=== PATIENT | female | born 1955 | race Caucasian/White ===

== ENCOUNTER → 2016-05-16 | Outpatient (CLI) | payer OTHER ==
[~2016-05-16] MED LIST: CITA10TA4 PO; CITA20TA4 PO; CLIN300C2 PO; CPR500 PO; CYCL5TAB PO; ESCI1TAB10 PO; FLUC100T4 PO; IBUP1CAP9 PO; MELO15TA10 PO; METH500T PO; NAPR1TAB9 PO; NRV5 PO; OXYC-57 PO; OXYC1TAB3 PO; PRLSR20 PO; QUET1TAB34 PO; SRQ/50 PO; TRAZ100T29 PO
--- NOTE | 2016-05-16 15:57 | DIAGNOSTIC IMAGING REPORT ---
LEFT SHOULDER MIN 2 VIEWS ROUTINE CLINICAL HISTORY: Left shoulder pain status post trauma COMPARISON: None. DISCUSSION: There is a left subclavian dual-chamber central venous pacemaker. No fractures or dislocations of the left shoulder are visualized. There are no visible periarticular calcifications. IMPRESSION: No fractures or dislocations identified. Electronically signed by: Jose Enrique Wang M.D. 05/16/2016 3:56 PM Dictated Date/Time: 05/16/2016 3:55 PM
== END | disposition home or self-care (01) ==
LOC: C.RADPV 15:39
PROVIDERS: ATTEND Nurse Practitioner
DX: M25.512 Pain in left shoulder (principal)

== ENCOUNTER → 2016-05-30 | Outpatient (CLI) | payer OTHER ==
--- NOTE | 2016-05-30 09:15 | DIAGNOSTIC IMAGING REPORT ---
LEFT SHOULDER MIN 2 VIEWS CLINICAL HISTORY: LEFT SHOULDER PAIN pain COMPARISON: 05/16/2016 DISCUSSION: The bones and joint spaces appear intact. There is no evidence of fracture, dislocation or bony disease. There is no evidence for soft tissue swelling. IMPRESSION: Negative study. Electronically signed by: Kobi Dempsey M.D. 05/30/2016 9:14 AM Dictated Date/Time: 05/30/2016 9:13 AM
== END | disposition home or self-care (01) ==
LOC: C.RDSM 09:02
PROVIDERS: ATTEND Family Medicine
DX: M25.512 Pain in left shoulder (principal)

== ENCOUNTER 2016-06-13 11:43 | Day surgery (SDC) | payer OTHER ==
[2016-06-01 10:20] LABS: HEMATOCRIT 39.6 % (37-47); MEAN CELL VOLUME 87.2 fL (80-100); MEAN CORPUSCULAR HEMOGLOBIN 29.5 pg (25-34); MEAN CORPUSCULAR HGB CONC 33.8 g/dl (32-36); MEAN PLATELET VOLUME 10.7 fL (7.4-10.4); PLATELET COUNT 235 K/uL (130-400); RED BLOOD COUNT 4.54 M/uL (4.2-5.4)
[2016-06-01 10:31] LABS: INR 0.9 (0.9-1.1); PARTIAL THROMBOPLASTIN RATIO 0.9; PROTHROMBIN TIME (PATIENT) 9.7 SECONDS (9.0-12.0)
[2016-06-01 10:49] LABS: BLOOD UREA NITROGEN 20 mg/dl (7-18); BUN/CREATININE RATIO 23.1 (10-20); CALCIUM 8.6 mg/dl (8.5-10.1); CARBON DIOXIDE 25 mmol/L (21-32); CHLORIDE 108 mmol/L (98-107); CREATININE 0.88 mg/dl (0.60-1.20); GLUCOSE 90 mg/dl (70-99); POTASSIUM 4.1 mmol/L (3.5-5.1); SODIUM 141 mmol/L (136-145)
[2016-06-13] VITALS (7 sets, daily range): BP systolic 122–167; BP diastolic 71–110; PULSE 68–85; TEMP 36.4–36.9; O2SAT 93–99; Ht 158.8 cm; Wt 63.5 kg
[~2016-06-13] VITALS: Ht 158.8 cm; Wt 63.5 kg
[~2016-06-13 11:43] MED LIST changes: -CITA20TA4 PO; -CLIN300C2 PO; -CPR500 PO; -CYCL5TAB PO; -ESCI1TAB10 PO; -FLUC100T4 PO; -IBUP1CAP9 PO; -MELO15TA10 PO; -NAPR1TAB9 PO; -NRV5 PO; -OXYC-57 PO; -OXYC1TAB3 PO; -PRLSR20 PO; -QUET1TAB34 PO; -SRQ/50 PO
[2016-06-13] MEDS ORDERED: IBUP1CAP9 PO (12:41)
[2016-06-13] MEDS ORDERED: NAPR1TAB9 PO (12:41)
[2016-06-13] MEDS ORDERED: QUET1TAB34 PO (12:41)
--- NOTE | 2016-06-13 12:44 | Procedure Note ---
Pre-Mod Sedation Assessment General Date of Moderate Sedation: Jun 13, 2016. Vital Signs: Vital Signs Past 12 Hours Date Time Temp Pulse Resp B/P Pulse Ox O2 Delivery O2 Flow Rate FiO2 06/13/16 12:20 157/102 06/13/16 12:02 36.9 85 18 167/110 98 Review Cardiovascular: regular rate, rhythm Abdomen: normal bowel sounds Lungs: lungs clear Pre-Sedation Airway Assessment Oral Cavity: Dentures Smoking Status: Current Some Day Smoker Procedure Planning Contraindications-for Mod Sed: None Yes Notes The planned sedation has been discussed with the patient and consent obtained. I have identified the patient, determined the appropriateness of sedation and have assessed the patient immediately prior to the procedure. All medicine(s) and interventions are by my order.
--- NOTE | 2016-06-13 12:44 | History & Physical Bridge Note ---
H&P Re-Evaluation Bridge Note: I have examined the patient, reviewed the History & Physical and in the interval since the performance of the History & Physical I have noted the following changes of clinical significance: No changes noted. I reviewed the indications, procedure, risks and alternatives with her and her family and they understand and she agrees to proceed. Consent obtained.
[2016-06-13] MEDS: CLINDAMYCIN 600 MG/54 ML D5W IV SCH ×2 (12:49→13:48)
[2016-06-13] MEDS ORDERED: BACITRACIN OINT 0.9 GM PKT ONE (13:13)
[2016-06-13] MEDS ORDERED: LIDOCAINE HCL 1% 20 ML VIAL ONE (13:13)
[2016-06-13] MEDS ORDERED: BACITRACIN 50000 UNIT VIAL ONE (13:13)
[2016-06-13] MEDS ORDERED: FENTANYL CITRATE INJ 50 MCG/1 ML 2 ML VIAL ONE ×2 (13:14→13:49)
[2016-06-13] MEDS ORDERED: MIDAZOLAM HCL 5 MG/ML 1 ML VIAL ONE ×2 (13:14→13:49)
--- NOTE | 2016-06-13 14:19 | Procedure Note ---
Post-Mod Sedation Assessment General Date of Moderate Sedation Jun 13, 2016. Vital Signs: Vital Signs Past 12 Hours Date Time Temp Pulse Resp B/P Pulse Ox O2 Delivery O2 Flow Rate FiO2 06/13/16 14:05 82 16 128/97 97 Nasal Cannula 3 06/13/16 12:20 157/102 06/13/16 12:02 36.9 85 18 167/110 98 Review - Discharge Criteria Vital Signs Stable: Yes Alert/Oriented/Conversant: Yes Returned to Baseline Mental St: Yes Nausea Absent/Minimal: Yes Pain/Discomfort/Absent/Minimal: Yes Normal/Baseline Respirations: Yes Active Bleeding?: No
--- NOTE | 2016-06-13 14:21 | Cardiology Procedure Brief Nt ---
Preliminary Cardiology Note Procedure Date Jun 13, 2016. Pre-Procedure Diagnosis pacemaker NICOLETTE Post-Procedure Diagnosis same Procedure(s) Performed Dual chamber pacemaker replacement Feeder Associate Dr. Orozco Safety Security Officer(s) none Estimated Blood Loss 20 cc Preliminary Findings Good chronic lead measurements Recommendations Monitor briefly and discharge Specimens Old pacemaker, return to [facility] Anesthesia local with sedation Complication(s) None Disposition MTU
[2016-06-13] MEDS ORDERED: DiphenhydrAMINE HCL 50 MG/ML VIAL ONE (14:22)
[2016-06-13] MEDS ORDERED: KETOROLAC TROMETHAMINE 10 MG TAB PO PRN (14:30)
[2016-06-13] MEDS ORDERED: ACETAMINOPHEN 325 MG TAB PO PRN (14:30)
[2016-06-13] MEDS ORDERED: CLIN300C2 PO (15:17)
--- NOTE | 2016-06-13 15:19 | Discharge Instructions ---
Discharge Instructions Date of Service Jun 13, 2016. Admission Reason for Admission: Pacemaker battery depletion Discharge Discharge Diagnosis / Problem: pacemaker replacement Discharge Goals Goal(s): Improve disease control Activity Recommendations Activity Limitations: resume your previous activity . Instructions / Follow-Up Instructions / Follow-Up ACTIVITY RECOMMENDATIONS: * Do not raise affected arm over head for 2 weeks. SPECIAL CARE INSTRUCTIONS: * If bleeding occurs, apply direct pressure to area for 5 minutes. * Call your doctor if you have severe pain, fever, drainage or bleeding at site. * Keep dressing on and dry. * Keep any scheduled doctor's appointment. * Implant Card - hand held device with website information given. SKIN IRRITATION: * You may experience some redness and/or swelling in the area where radiation was administered. If any skin irritation occurs, please contact your family physician. FOLLOW UP VISIT: Dr. Orozco 06/14/2016 10:00 AM Current Hospital Diet Patient's current hospital diet: Discharge Diet Recommended Diet: AHA Diet (Heart Healthy) Pending Studies Studies pending at discharge: no Medical Emergencies . Who to Call and When: Medical Emergencies: If at any time you feel your situation is an emergency, please call 911 immediately. . Non-Emergent Contact Non-Emergency issues call your: Primary Care Provider . . "Provider Documentation" section prepared by Pancho Orozco. VTE Core Measure Inpt VTE Proph given/why not?: Treatment not indicated
--- NOTE | 2016-06-13 15:21 | OPERATIVE REPORT ---
DATE OF OPERATION: 06/13/2016 PREOPERATIVE DIAGNOSIS: Pacemaker elective replacement indicator. POSTOPERATIVE DIAGNOSIS: Same. PROCEDURE: Dual chamber pacemaker replacement. SURGEON: Pancho Orozco M.D. ANESTHESIA: Local with sedation. HISTORY OF PRESENT ILLNESS: This is a 61-year-old woman who has a history of sinus bradycardia, her care initially took place in the [facility]. She evidently had several episodes of syncope prompting pacemaker implantation on 03/19/2007. It is reported that she had a second pause on telemetry monitoring. She paces infrequently but does use the pacemaker. Her pacemaker has now reached NICOLETTE, the leads tested well through the device. She is brought to the laboratory for device replacement. OPERATION AND FINDINGS: After obtaining informed consent for the procedure, she was brought to the laboratory on the afternoon of 06/13/2016 being n.p.o. after midnight. She was identified in the laboratory, prepped and draped in standard sterile manner for a left-sided pacemaker replacement. The left prepectoral region was anesthetized with 1% lidocaine local anesthetic through the implant scar and a 5 cm incision was made through the scar and carried down to the pacemaker generator. The generator was dissected free of tissue and explanted. A bacitracin-soaked sponge (50,000 units in 50 mL normal saline solution) was placed in the pocket. The pacemaker was removed from the leads and confirmed to be a Guidant model 1296, serial #[id number]. This device will be returned to Induction Manager. Since this new device is an RF device, the leads were not evaluated until a new pacemaker was connected, the new pacemaker is a [employer] Accolade MRI EL DR model L331, serial #[id number]. The pacemaker was connected to the leads and found to be functioning normally through the wireless telemetry. The atrial lead is a Guidant model 4469, serial #[id number]. The pacing threshold was 0.6 volts at a pulse width of 0.4 milliseconds, current 0.8 milliamp and 5-volt lead impedance 518 ohms. P-waves were sensed at 7.3 millivolts. This is a very good threshold. The ventricular lead is a Guidant model 4470, serial #[id number]. This lead was evaluated in bipolar configuration through the device and the pacing threshold was 0.7 at a pulse width of 0.4 milliseconds, current was 1.5 milliamp and 5-volt lead impedance was 472 ohms. R-waves were sensed at 16.9 millivolts. These are excellent thresholds as well. The ICD pocket was enlarged in an inferior direction as this is a larger device than the previous, the device was placed in the pocket with the leads coiled beneath it and the incision was closed with a running double subcutaneous closure of 3-0 Vicryl followed by running subcuticular skin closure of 4-0 Vicryl. Bacitracin ointment was placed on incision and a pressure dressing applied. He tolerated the procedure well, there were no complications and estimated blood loss was 20 mL. The patient was transferred to the ambulatory unit for monitoring and subsequent discharge. Details of the old and new pacemaker and leads are noted above. The pacemaker was reprogrammed in the laboratory to final settings. This system is currently not approved for MRI based on the leads, however these leads should become approved for MRI in the near future and this is an MRI compatible pacer; therefore in the near future this will likely be an MRI compatible system. BRANDI
[2016-06-13] MEDS ORDERED: DiphenhydrAMINE HCL 50 MG/ML VIAL IV ONE (16:15)
[2016-10-02] MEDS ORDERED: NRV5 PO (12:36)
[2016-10-11] MEDS ORDERED: CPR500 PO (10:47)
[2016-10-11] MEDS ORDERED: FLUC100T4 PO (10:47)
[2016-11-08] MEDS ORDERED: CITA20TA4 PO (10:19)
[2016-11-08] MEDS ORDERED: PRLSR20 PO (10:19)
[2016-11-08] MEDS ORDERED: QUET1TAB34 PO (10:19)
[2016-11-08] MEDS ORDERED: OXYC-57 PO (10:19)
[2016-11-08] MEDS ORDERED: MELO15TA10 PO (10:19)
== END 2016-06-13 16:45 | disposition home or self-care (01) ==
LOC: C.ACU 11:43
PROVIDERS: ATTEND Internal Medicine Cardiovascular Disease
DX: R00.1 Bradycardia, unspecified (principal); M25.512 Pain in left shoulder; W01.198A Fall on same level from slipping, tripping and stumbling with subsequent striking against other object, initial encounter; R55 Syncope and collapse; K21.9 Gastro-esophageal reflux disease without esophagitis; F41.9 Anxiety disorder, unspecified; I10 Essential (primary) hypertension; F30.9 Manic episode, unspecified; E78.00 Pure hypercholesterolemia, unspecified; E78.5 Hyperlipidemia, unspecified; Z80.42 Family history of malignant neoplasm of prostate; Z87.891 Personal history of nicotine dependence; Z95.0 Presence of cardiac pacemaker

== ENCOUNTER → 2016-06-21 | Outpatient (CLI) | payer OTHER ==
[~2016-06-21] MED LIST changes: +CITA20TA4 PO; +CPR500 PO; +CYCL5TAB PO; +ESCI1TAB10 PO; +FLUC100T4 PO; +IBUP1CAP9 PO; +MELO15TA10 PO; -METH500T PO; +NAPR1TAB9 PO; +NRV5 PO; +OXYC-57 PO; +OXYC1TAB3 PO; +PRLSR20 PO; +QUET1TAB34 PO; +SRQ/50 PO; -TRAZ100T29 PO
--- NOTE | 2016-06-21 16:57 | MAMMOGRAPHY REPORT ---
BILATERAL DIGITAL SCREENING MAMMOGRAM TOMOSYNTHESIS WITH CAD: 06/21/2016 CLINICAL HISTORY: Routine screening. Patient has no complaints. TECHNIQUE: Breast tomosynthesis in addition to standard 2D mammography was performed. Current study was also evaluated with a Computer Aided Detection (CAD) system. COMPARISON: Comparison is made to exams dated: 06/13/2012 mammogram, 06/18/2014 mammogram, 06/21/2015 ma mmogram, and 06/25/2014 mammogram - [facility]. BREAST COMPOSITION: The tissue of both breasts is heterogeneously dense, which may obscure small ma sses. FINDINGS: No suspicious masses, calcifications, or areas of architectural distortion are noted in e ither breast. There has been no significant interval change compared to prior exams. A pacemaker ob scures portions of the left superior breast on the MLO view. IMPRESSION: ACR BI-RADS CATEGORY 2: BENIGN There is no mammographic evidence of malignancy. A 1 year screening mammogram is recommended. The p atient will receive written notification of the results. Approximately 10% of breast cancers are not detected with mammography. A negative mammographic repor t should not delay biopsy if a clinically suggestive mass is present. Bhavna Jones M.D. ah/:06/21/2016 16:03:23 Rib Builder: Grace BURRIS(R)(M), [facility] letter sent: Normal 1/2 BI-RADS Code: ACR BI-RADS Category 2: Benign
== END | disposition home or self-care (01) ==
LOC: C.MAMM 11:13
PROVIDERS: ATTEND Family Medicine
DX: Z12.31 Encounter for screening mammogram for malignant neoplasm of breast (principal)

== ENCOUNTER → 2016-09-10 | Outpatient (CLI) | payer OTHER ==
--- NOTE | 2016-09-10 14:48 | DIAGNOSTIC IMAGING REPORT ---
KUB CLINICAL HISTORY: Nephrolithiasis. FINDINGS: An AP supine abdominal radiograph is compared to study dated 03/08/2016 and correlated with abdominal CT dated 08/31/2015. There is a nonobstructed abdominal bowel gas pattern noting mild to moderate colonic fecal retention. A 3 mm nonobstructing calculus projects over the lower pole of the right kidney. No additional calcifications are seen projecting over either kidney or along the course of the ureters. Pelvic phleboliths are similar to previous. The skeletal structures are osteopenic. The bony structures appear intact. IMPRESSION: 1. A nonobstructing right renal calculus is identified. 2. No additional calcifications are seen projecting over the right kidney or along the course of the ureters. Electronically signed by: Praneeth Wren M.D. 09/10/2016 2:47 PM Dictated Date/Time: 09/10/2016 2:45 PM
== END | disposition home or self-care (01) ==
LOC: C.RAD 14:17
PROVIDERS: ATTEND Nurse Practitioner Family
DX: N20.0 Calculus of kidney (principal)

== ENCOUNTER → 2016-09-11 | Outpatient (CLI) | payer OTHER | END | disposition home or self-care (01) | LOC: C.PATHSPEC 17:11 | PROVIDERS: ATTEND Nurse Practitioner Adult Health | DX: M54.5 Low back pain (principal); N94.9 Unspecified condition associated with female genital organs and menstrual cycle; R31.29 Other microscopic hematuria ==

== ENCOUNTER → 2016-09-25 | Outpatient (CLI) | payer OTHER ==
[~2016-09-25] MED LIST changes: +OPTIRAY 320 IV PRN
--- NOTE | 2016-09-25 11:51 | DIAGNOSTIC IMAGING REPORT ---
ADDENDUM Addendum: There is an 11 mm nonobstructing distal left ureteral calculus. Electronically signed by: Jose Enrique Wang M.D. 09/29/2016 5:53 PM Dictated Date/Time: 09/29/2016 5:[address] ABD/PELVIS COMBO CLINICAL HISTORY: M54.5 Low back painN94.9 Vaginal phbvopujmvX80.29 Microhematuria COMPARISON STUDY: 08/31/2015 TECHNIQUE: Unenhanced images were obtained through the abdomen and pelvis. The patient was then injected with 50 cc Optiray 320. After 5 minute delay, the patient is rescanned in a dynamic helical fashion during intravenous administration of additional 69 cc of Optiray 320 CT DOSE: 606.01 mGy.cm FINDINGS: Lower chest: There are mild basilar atelectatic changes present. There is a small hiatal hernia Liver: The contrast-enhanced liver is normal in size, contour, and attenuation. There is no intrahepatic biliary ductal dilatation. The hepatic veins and portal veins are patent. Gallbladder: Surgically absent Spleen: Normal in size and attenuation. Pancreas: Unremarkable. Adrenal glands: Unremarkable. Kidneys: There is a 5 mm lower pole right renal calculus. There is a 2.5 mm mid pole right renal calculus. There is a 2.5 mm mid pole left renal calculus. There are 2 subcentimeter upper pole right renal hypodensities. Both of these exceed water attenuation and are therefore indeterminate. Due to the very small size it is difficult to determine whether these lesions enhance. It should be noted that these lesions appear stable to smaller than on the prior July 2010 study, strongly favoring a benign etiology. No collecting system or ureteral lesions are visualized. Bowel: There are no transition zones indicate bowel obstruction. There is no acute diverticulitis. There is no acute appendicitis. Peritoneum: There is no intraperitoneal free air or abdominal ascites. Vasculature: The abdominal aorta is normal in course and caliber. Adenopathy: None. Pelvic viscera: The uterus appears surgically absent Skeletal structures: No destructive osseous lesions are seen. IMPRESSION: 1. Bilateral nephrolithiasis 2. Subcentimeter right renal hypodensities likely benign 3. No uroepithelial masses identified 4. No evidence of bowel obstruction. No evidence of free air. No acute inflammatory changes. Electronically signed by: Jose Enrique Wang M.D. 09/25/2016 11:49 AM Dictated Date/Time: 09/25/2016 11:41 AM
== END | disposition home or self-care (01) ==
LOC: C.CTS 10:58
PROVIDERS: ATTEND Nurse Practitioner Adult Health
DX: R31.29 Other microscopic hematuria (principal); N94.9 Unspecified condition associated with female genital organs and menstrual cycle; M54.5 Low back pain; N20.0 Calculus of kidney; N28.9 Disorder of kidney and ureter, unspecified

== ENCOUNTER 2016-09-29 16:07 | Observation (INO) | payer OTHER ==
[~2016-09-29] VITALS: Ht 160 cm; Wt 61.9 kg
[~2016-09-29 16:07] MED LIST changes: -CITA20TA4 PO; -CPR500 PO; -CYCL5TAB PO; -ESCI1TAB10 PO; -FLUC100T4 PO; -MELO15TA10 PO; -NRV5 PO; -OPTIRAY 320 IV PRN; -OXYC-57 PO; -OXYC1TAB3 PO; -PRLSR20 PO; -SRQ/50 PO
[2016-09-29] MEDS ORDERED: CYCL5TAB PO (16:36)
[2016-09-29] MEDS ORDERED: ESCI1TAB10 PO (16:36)
[2016-09-29] MEDS ORDERED: SRQ/50 PO (16:36)
[2016-09-29] MEDS ORDERED: OXYC1TAB3 PO (16:36)
[2016-09-29] MEDS ORDERED: OXYCODONE HCL IR 5 MG TAB (IMMEDIATE RELEASE) PO STA (17:07)
--- NOTE | 2016-09-29 17:11 | EMERGENCY ROOM VISIT NOTE ---
ED Visit Note First contact with patient: 17:08 I did evaluate and examine this patient myself. I did guide management for the patient. I agree with the APC's assessment as discussed. Please see the APC's dictation for further details. The patient is presenting with chronic pain to her lower back without any signs of spinal cord injury or cauda equina syndrome. She is afebrile. She is treated by pain management in [place] and ran out of her medication recently. X-ray was performed and revealed a nonobstructing kidney stone. The patient was treated and advised to follow up with her doctor.
--- NOTE | 2016-09-29 17:13 | EMERGENCY ROOM VISIT NOTE ---
ED Visit Note First contact with patient: 16:38 CHIEF COMPLAINT: Low back pain HISTORY OF PRESENT ILLNESS: This 61-year-old female patient presents to the emergency department ambulatory complaining of pain in the low back which began 1 year ago. The pain was gradual in onset, is now constant and worse with movement. The patient notes the pain as severe and a 10/10. The patient has taken nothing for relief of the pain. The patient denies any bowel or bladder difficulties. There has been no leg numbness or weakness, and no change in sensation. She denies any radicular pain. No nausea or vomiting or abdominal pain. No chest pain or shortness of breath. The patient has had prior back injuries. The patient has seen orthopedics in pain management for her back pain. She has been diagnosed with L4-L5 degenerative changes. She had injections most recently 3 weeks ago. She states that she is usually on oxycodone 5 mg twice daily, Flexeril and meloxicam. The patient states that she has been out of her pain medication for the last 1 week. She states she may have unknowingly twisted and has noticed increasing pain. She was diagnosed with bilateral nephrolithiasis without ureterolithiasis by urology who she sees routinely. REVIEW OF SYSTEMS: No dysuria or increased urinary frequency. A 6 system review of systems was completed and pertinent positives and negatives are in the HPI. ALLERGIES: See nursing notes MEDICATIONS: See nursing notes PMH: Chronic back pain, kidney stones SOCIAL HISTORY: The patient is a smoker PHYSICAL EXAM: VITALS: Vitals are noted on the nurse's note and reviewed by myself. No abnormalities noted. GENERAL: This is a 61-year-old female, in no acute distress, nondiaphoretic, well-developed well-nourished. SKIN: The skin was without rashes, erythema, edema, or bruising. Capillary refill less than 2 seconds. NECK: Supple without nuchal rigidity. No cervical spine tenderness. No paraspinous muscle tenderness. HEART: Regular rate and rhythm without murmurs gallops or rubs. LUNGS: Clear to auscultation bilaterally without wheezes, rales or rhonchi. ABDOMEN: Positive bowel sounds x 4. Normal tympanic percussion. Soft, nontender, without masses or organomegaly. Jensen sign negative. MUSCULOSKELETAL: No muscle atrophy, erythema, or edema noted of the back. There is moderate tenderness over the lumbar spinous processes. There is no tenderness over the paraspinous muscles. There is no tenderness over the thoracic spine more paraspinous muscles. There are no muscle spasms present. The patient is slow to move around with maximum tenderness with extension.. Negative straight leg raise test. NEURO: Patient was alert and oriented to person place and time. Normal sensation to light and sharp touch. Deep tendon reflexes 2+ in the lower extremities. Dorsalis pedis pulse 2+ bilaterally. Strength is 5/5 in the lower extremities bilaterally. EMERGENCY DEPARTMENT COURSE: The patient was seen and examined. The patient reports a history of chronic low back pain for which she sees pain management. She initially stated she had no change in her symptoms. She does not have any signs or symptoms to suggest cauda equina or cord compression. She does not have any radicular pain, paresthesias, weakness. She has not had any fevers. She has not had any abdominal pain. The patient states that she has been out of her oxycodone for at least a week. When I reviewed the prescription drug monitoring website, the patient received oxycodone 5 mg tablets #90 on 2016. She should still have enough medication through tomorrow. She had advised me that she was taking the medication exactly as prescribed. She still was adamant that she is taking it appropriately when I reviewed the above finding. The patient also states that she missed her appointment with pain management a few days ago. It would have been the appointment that her medication was refilled. I do not feel comfortable prescribing this patient narcotic pain medication given that she is already prescribed chronic medication for pain management. She should still have her medication until Sunday. It is concerning that she may not be taking her medications appropriately. I agreed to give her one dose of pain medication but no prescriptions. She was given oxycodone 5mg. She requested an x ray and stated she has not had one for some time. An x-ray of the lumbar spine was obtained as below. There does appear to be an 11 mm left distal ureteral stone. Upon review by the radiologist, it appeared to be there on the CT scan from a few days ago and that report was amended. The patient's pain may be related to the 11 mm left-sided distal ureteral stone. It was not noted on CAT scan from a few days ago but was present. At this time, an IV was established. The patient was given IV Dilaudid. She had already been given 5 mg oral oxycodone. She did not have any significant improvement in her pain. She could not provide a urine sample. She did not have a leukocytosis, anemia or renal insufficiency. [facility] and [facility] will evaluate the patient. The patient was also seen and examined by who agrees with the assessment and treatment plan. DIFFERENTIAL DIAGNOSIS: Lumbar strain, degenerative disc disease, spondylolisthesis, herniated disc, spinal stenosis, osteoporosis, fracture, cauda equina syndrome, neoplasm, infection, inflammatory arthritis, among others. 09/29/16 18:45 Red Blood Count 4.57, Mean Corpuscular Volume 88.2, Mean Corpuscular Hemoglobin 28.4, Mean Corpuscular Hemoglobin Concent 32.3, Mean Platelet Volume 10.1, Neutrophils (%) (Auto) 65.1, Lymphocytes (%) (Auto) 26.7, Monocytes (%) (Auto) 5.7, Eosinophils (%) (Auto) 1.7, Basophils (%) (Auto) 0.6, Neutrophils # (Auto) 3.55, Lymphocytes # (Auto) 1.45, Monocytes # (Auto) 0.31, Eosinophils # (Auto) 0.09, Basophils # (Auto) 0.03 09/29/16 18:45 Test 09/29/16 18:45 White Blood Count 5.44 K/uL (4.8-10.8) Red Blood Count 4.57 M/uL (4.2-5.4) Hemoglobin 13.0 g/dL (12.0-16.0) Hematocrit 40.3 % (37-47) Mean Corpuscular Volume 88.2 fL (80-100) Mean Corpuscular Hemoglobin 28.4 pg (25-34) Mean Corpuscular Hemoglobin Concent 32.3 g/dl (32-36) Platelet Count 241 K/uL (130-400) Mean Platelet Volume 10.1 fL (7.4-10.4) Neutrophils (%) (Auto) 65.1 % Lymphocytes (%) (Auto) 26.7 % Monocytes (%) (Auto) 5.7 % Eosinophils (%) (Auto) 1.7 % Basophils (%) (Auto) 0.6 % Neutrophils # (Auto) 3.55 K/uL (1.4-6.5) Lymphocytes # (Auto) 1.45 K/uL (1.2-3.4) Monocytes # (Auto) 0.31 K/uL (0.11-0.59) Eosinophils # (Auto) 0.09 K/uL (0-0.5) Basophils # (Auto) 0.03 K/uL (0-0.2) RDW Standard Deviation 43.4 fL (36.4-46.3) RDW Coefficient of Variation 13.5 % (11.5-14.5) Immature Granulocyte % (Auto) 0.2 % Immature Granulocyte # (Auto) 0.01 K/uL (0.00-0.02) Anion Gap 6.0 mmol/L (3-11) Est Creatinine Clear Calc Drug Dose 62.5 ml/min Estimated GFR () 86.9 Estimated GFR (Non- 75.0 BUN/Creatinine Ratio 18.9 (10-20) Calcium Level 9.5 mg/dl (8.5-10.1) Total Bilirubin 0.3 mg/dl (0.2-1) Aspartate Amino Transf (AST/SGOT) 18 U/L (15-37) Alanine Aminotransferase (ALT/SGPT) 23 U/L (12-78) Alkaline Phosphatase 119 U/L (45-117) Total Protein 7.5 gm/dl (6.4-8.2) Albumin 4.2 gm/dl (3.4-5.0) Globulin 3.3 gm/dl (2.5-4.0) Albumin/Globulin Ratio 1.3 (0.9-2) [~ rep ct add3]] L-SPINE MIN 4 VIEWS ROUTINE CLINICAL HISTORY: Low back pain. Nausea. COMPARISON STUDY: 09/23/2015, CT scan dated 09/25/2016 FINDINGS: No acute fractures are visualized. There are surgical clips within the right upper quadrant consistent with a prior cholecystectomy. There are multiple nonspecific pelvic basin calcifications. There are few faint opacities projected over each renal shadow. The findings are consistent with bilateral nephrolithiasis. There are no acute fractures or subluxations within the lumbar spine. There are mild multilevel degenerative changes. There are multiple nonspecific pelvic basin calcifications. An 11 mm left pelvic basin calcification was not present in February 2016. This is felt to represent a nonobstructing distal left ureteral calculus.. IMPRESSION: 1. Minor degenerative change. No fractures or subluxations identified 2. Multiple pelvic basin calcifications including an 11 mm left pelvic basin calcification which was not present in February 2016. Upon review of the prior September 25, 2016 CT scan, it is felt that this calcification represents a nonobstructing distal left ureteral calculus. An addendum to that CT report will be issued. Problem List Medical Problems: (1) Anxiety and depression Status: Chronic (2) Cardiac pacemaker Status: Chronic (3) Gross hematuria Status: Resolved (4) Low back pain Status: Resolved (5) UTI (urinary tract infection) Status: Resolved Surgical Problems: (1) History of cholecystectomy Status: Chronic (2) Tubal ligation status Status: Chronic Current/Historical Medications Scheduled Escitalopram Oxalate (Lexapro), 20 MG PO DAILY Quetiapine Fumarate (Seroquel), 1 TAB PO HS Scheduled PRN Cyclobenzaprine Hcl (Flexeril), 5 MG PO Q8 PRN for Pain Ibuprofen (Ibuprofen), 600 MG PO Q8 PRN for Pain Naproxen (Aleve), 440 MG PO Q8 PRN for Pain Oxycodone Ir (Roxicodone Ir), 5 MG PO Q4H PRN for Severe Pain Allergies Coded Allergies: Morphine (Unverified Allergy, Severe, SHORTNESS OF BREATH, 09/29/16) Sulfa Antibiotics (Verified Allergy, Intermediate, ITCHY, 09/29/16) Sulfamethoxazole w/Trimethoprim (Verified Allergy, Intermediate, Itching, 09/29/16) Doxycycline (Verified Allergy, Mild, RED WELTS, 09/29/16) Codeine (Verified Allergy, Unknown, 09/29/16) Penicillins (Verified Allergy, Unknown, 09/29/16) Diphenhydramine (Unverified Adverse Reaction, Severe, UNKNOWN, 09/29/16) CANT TAKE HIGH DOSAGE. Chlorpromazine (Verified Adverse Reaction, Unknown, unknown, 09/29/16) Hydrocodone (Verified Adverse Reaction, Unknown, Vomiting, 09/29/16) Vital Signs Date Time Temp Pulse Resp B/P (MAP) Pulse Ox O2 Delivery O2 Flow Rate FiO2 09/29/16 18:52 73 18 161/99 98 Room Air 09/29/16 16:21 36.8 96 20 142/103 94 Room Air Laboratory Results 09/29/16 18:45 Red Blood Count 4.57, Mean Corpuscular Volume 88.2, Mean Corpuscular Hemoglobin 28.4, Mean Corpuscular Hemoglobin Concent 32.3, Mean Platelet Volume 10.1, Neutrophils (%) (Auto) 65.1, Lymphocytes (%) (Auto) 26.7, Monocytes (%) (Auto) 5.7, Eosinophils (%) (Auto) 1.7, Basophils (%) (Auto) 0.6, Neutrophils # (Auto) 3.55, Lymphocytes # (Auto) 1.45, Monocytes # (Auto) 0.31, Eosinophils # (Auto) 0.09, Basophils # (Auto) 0.03 09/29/16 18:45 Test 09/29/16 18:45 White Blood Count 5.44 K/uL (4.8-10.8) Red Blood Count 4.57 M/uL (4.2-5.4) Hemoglobin 13.0 g/dL (12.0-16.0) Hematocrit 40.3 % (37-47) Mean Corpuscular Volume 88.2 fL (80-100) Mean Corpuscular Hemoglobin 28.4 pg (25-34) Mean Corpuscular Hemoglobin Concent 32.3 g/dl (32-36) Platelet Count 241 K/uL (130-400) Mean Platelet Volume 10.1 fL (7.4-10.4) Neutrophils (%) (Auto) 65.1 % Lymphocytes (%) (Auto) 26.7 % Monocytes (%) (Auto) 5.7 % Eosinophils (%) (Auto) 1.7 % Basophils (%) (Auto) 0.6 % Neutrophils # (Auto) 3.55 K/uL (1.4-6.5) Lymphocytes # (Auto) 1.45 K/uL (1.2-3.4) Monocytes # (Auto) 0.31 K/uL (0.11-0.59) Eosinophils # (Auto) 0.09 K/uL (0-0.5) Basophils # (Auto) 0.03 K/uL (0-0.2) RDW Standard Deviation 43.4 fL (36.4-46.3) RDW Coefficient of Variation 13.5 % (11.5-14.5) Immature Granulocyte % (Auto) 0.2 % Immature Granulocyte # (Auto) 0.01 K/uL (0.00-0.02) Anion Gap 6.0 mmol/L (3-11) Est Creatinine Clear Calc Drug Dose 62.5 ml/min Estimated GFR () 86.9 Estimated GFR (Non- 75.0 BUN/Creatinine Ratio 18.9 (10-20) Calcium Level 9.5 mg/dl (8.5-10.1) Total Bilirubin 0.3 mg/dl (0.2-1) Aspartate Amino Transf (AST/SGOT) 18 U/L (15-37) Alanine Aminotransferase (ALT/SGPT) 23 U/L (12-78) Alkaline Phosphatase 119 U/L (45-117) Total Protein 7.5 gm/dl (6.4-8.2) Albumin 4.2 gm/dl (3.4-5.0) Globulin 3.3 gm/dl (2.5-4.0) Albumin/Globulin Ratio 1.3 (0.9-2) Medications Administered Medications (Trade) Dose Ordered Sig/Margaret Route Start Time Stop Time Status Last Admin Dose Admin Oxycodone HCl (Roxicodone Immediate Rel Tab) 5 mg NOW STAT PO 09/29/16 17:07 09/29/16 17:08 DC 09/29/16 17:22 5 MG Sodium Chloride 1,000 ml @ 999 mls/hr Q1H1M STAT IV 09/29/16 18:06 09/29/16 19:06 DC 09/29/16 19:00 999 MLS/HR Ondansetron HCl (Zofran Inj) 4 mg NOW STAT IV 09/29/16 18:06 09/29/16 18:08 DC 09/29/16 18:59 4 MG Hydromorphone HCl (Dilaudid Inj) 0.5 mg NOW STAT IV 09/29/16 18:45 09/29/16 18:46 DC 09/29/16 18:59 0.5 MG Lidocaine HCl (Viscous Lidocaine 2% Soln) 20 ml STK-MED ONCE .ROUTE 09/29/16 19:56 09/29/16 19:57 DC 09/29/16 19:58 20 ML Al Hydroxide/Mg Hydroxide (Maalox Susp) 30 ml STK-MED ONCE .ROUTE 09/29/16 19:56 09/29/16 19:57 DC 09/29/16 19:58 30 ML Departure Information Dispostion Admitted as an inpatient Referrals Mahi Hodges C.R.N.P (PCP) Patient Instructions Formerly [facility], [facility]
--- NOTE | 2016-09-29 17:53 | DIAGNOSTIC IMAGING REPORT ---
L-SPINE MIN 4 VIEWS ROUTINE CLINICAL HISTORY: Low back pain. Nausea. COMPARISON STUDY: 09/23/2015, CT scan dated 09/25/2016 FINDINGS: No acute fractures are visualized. There are surgical clips within the right upper quadrant consistent with a prior cholecystectomy. There are multiple nonspecific pelvic basin calcifications. There are few faint opacities projected over each renal shadow. The findings are consistent with bilateral nephrolithiasis. There are no acute fractures or subluxations within the lumbar spine. There are mild multilevel degenerative changes. There are multiple nonspecific pelvic basin calcifications. An 11 mm left pelvic basin calcification was not present in February 2016. This is felt to represent a nonobstructing distal left ureteral calculus.. IMPRESSION: 1. Minor degenerative change. No fractures or subluxations identified 2. Multiple pelvic basin calcifications including an 11 mm left pelvic basin calcification which was not present in February 2016. Upon review of the prior September 25, 2016 CT scan, it is felt that this calcification represents a nonobstructing distal left ureteral calculus. An addendum to that CT report will be issued. Electronically signed by: Jose Enrique Wang M.D. 09/29/2016 5:52 PM Dictated Date/Time: 09/29/2016 5:45 PM
[2016-09-29] MEDS ORDERED: SODIUM CHLORIDE 0.9% 1000ML 1,000 ML IV STA (18:06)
[2016-09-29] MEDS ORDERED: ONDANSETRON INJ 2 MG/ML 2 ML VIAL IV STA (18:06)
[2016-09-29] MEDS ORDERED: HYDROmorphone INJ 0.5 MG/0.5 ML SYR IV STA (18:45)
[2016-09-29 19:18] LABS: BUN/CREATININE RATIO 18.9 (10-20); CALCIUM 9.5 mg/dl (8.5-10.1); CREATININE 0.85 mg/dl (0.60-1.20); POTASSIUM 3.6 mmol/L (3.5-5.1)
[2016-09-29 19:21] LABS: ALB/GLOB RATIO 1.3 (0.9-2)
[2016-09-29] MEDS ORDERED: GI COCKTAIL PO STA (19:22)
[2016-09-29 19:24] LABS: BASO % 0.6 %; BASO ABS # 0.03 K/uL (0-0.2); COMPLETE YES; EOS % 1.7 %; HEMATOCRIT 40.3 % (37-47); IG% 0.2 %; LYMPH % 26.7 %; LYMPH ABS # 1.45 K/uL (1.2-3.4); MEAN CELL VOLUME 88.2 fL (80-100); MEAN CORPUSCULAR HEMOGLOBIN 28.4 pg (25-34); MEAN CORPUSCULAR HGB CONC 32.3 g/dl (32-36); MEAN PLATELET VOLUME 10.1 fL (7.4-10.4); MONO % 5.7 %; NEUT % 65.1 %; PLATELET COUNT 241 K/uL (130-400); RED BLOOD COUNT 4.57 M/uL (4.2-5.4); WHITE BLOOD COUNT 5.44 K/uL (4.8-10.8)
[2016-09-29] MEDS ORDERED: ALUMINUM/MAGNESIUM SUSP 30 ML UDC ONE (19:56)
[2016-09-29] MEDS ORDERED: LIDOCAINE HCL 2% VISC SOLN 20 ML UDC ONE (19:56)
[2016-09-29] MEDS ORDERED: IV FLUIDS COMPLETED PRN (21:15)
[2016-09-29] MEDS ORDERED: CYCLOBENZAPRINE HCL 5 MG TAB PO PRN (22:15)
[2016-09-29 22:18] VITALS: O2SAT 96; Ht 160 cm; Wt 61.9 kg
[2016-09-29 22:20] VITALS: BP 164/96; PULSE 62; TEMP 36.6; O2SAT 96
[2016-09-29] MEDS: D5W AND 1/2NSS 1,000 ML IV SCH (22:59)
[2016-09-29] MEDS ORDERED: PANTOprazole SOD 40 MG TAB PO ONE (23:00)
[2016-09-29] MEDS: ONDANSETRON INJ 2 MG/ML 2 ML VIAL IV PRN (23:48)
--- NOTE | 2016-09-30 00:33 | History and Physical ---
History & Physical Date & Time of Service: Sep 30, 2016 at 00:24 Chief Complaint: Renal Colic On Left Side Primary Care Physician: Mahi Hodges C.R.N.P History of Present Illness Source: patient The patient is a 61-year-old who has a history of nephrolithiasis with hydronephrosis. She complains of 1010 severe back pain. She has recently been seen by orthopedics and had been receiving injections. She has a known history of kidney stones and workup in the emergency room was consistent with nephrolithiasis causing her present back pain. She'll be admitted for treatment of intractable back pain secondary to nephrolithiasis. She denies any fevers chills nausea or vomiting. She is complaining of severe reflux pain. Past Medical/Surgical History Medical Problems: (1) Anxiety and depression Status: Chronic (2) Cardiac pacemaker Status: Chronic (3) Gross hematuria Status: Resolved (4) Low back pain Status: Resolved (5) UTI (urinary tract infection) Status: Resolved Surgical Problems: (1) History of cholecystectomy Status: Chronic (2) Tubal ligation status Status: Chronic Family History Cancer Gallbladder disease Kidney disease Kidney stones Social History Smoking Status: Current Every Day Smoker Drug Use: none Marital Status: single Housing status: lives with family Occupational Status: disabled Multi-Drug Resistant Organisms History of MDRO: No Allergies Coded Allergies: Morphine (Unverified Allergy, Severe, SHORTNESS OF BREATH, 09/29/16) Sulfa Antibiotics (Verified Allergy, Intermediate, ITCHY, 09/29/16) Sulfamethoxazole w/Trimethoprim (Verified Allergy, Intermediate, Itching, 09/29/16) Doxycycline (Verified Allergy, Mild, RED WELTS, 09/29/16) Codeine (Verified Allergy, Unknown, 09/29/16) Penicillins (Verified Allergy, Unknown, 09/29/16) Diphenhydramine (Unverified Adverse Reaction, Severe, UNKNOWN, 09/29/16) CANT TAKE HIGH DOSAGE. Chlorpromazine (Verified Adverse Reaction, Unknown, unknown, 09/29/16) Hydrocodone (Verified Adverse Reaction, Unknown, Vomiting, 09/29/16) Home Medications Scheduled Escitalopram Oxalate (Lexapro), 20 MG PO DAILY Quetiapine Fumarate (Seroquel), 1 TAB PO HS Scheduled PRN Cyclobenzaprine Hcl (Flexeril), 5 MG PO Q8 PRN for Pain Ibuprofen (Ibuprofen), 600 MG PO Q8 PRN for Pain Naproxen (Aleve), 440 MG PO Q8 PRN for Pain Oxycodone Ir (Roxicodone Ir), 5 MG PO Q4H PRN for Severe Pain Physical Exam Vital Signs Date Time Temp Pulse Resp B/P (MAP) Pulse Ox O2 Delivery O2 Flow Rate FiO2 09/29/16 22:20 36.6 62 16 164/96 (118) 96 Room Air 09/29/16 22:18 96 Room Air 09/29/16 21:59 73 18 151/95 95 09/29/16 21:00 73 18 151/95 95 Room Air 09/29/16 18:52 73 18 161/99 98 Room Air 09/29/16 16:21 36.8 96 20 142/103 94 Room Air General Appearance: WD/WN, no apparent distress Eyes: normal inspection ENT: hearing grossly normal Neck: supple, trachea midline Respiratory/Chest: lungs clear Cardiovascular: regular rate, rhythm Abdomen/GI: normal bowel sounds, non tender Back: + left CVA tenderness Extremities/Musculoskelatal: normal inspection Neurologic/Psych: alert Diagnostics Laboratory Results Results Past 24 Hours Test 09/29/16 18:45 Range/Units White Blood Count 5.44 4.8-10.8 K/uL Red Blood Count 4.57 4.2-5.4 M/uL Hemoglobin 13.0 12.0-16.0 g/dL Hematocrit 40.3 37-47 % Mean Corpuscular Volume 88.2 80-100 fL Mean Corpuscular Hemoglobin 28.4 25-34 pg Mean Corpuscular Hemoglobin Concent 32.3 32-36 g/dl Platelet Count 241 130-400 K/uL Mean Platelet Volume 10.1 7.4-10.4 fL Neutrophils (%) (Auto) 65.1 % Lymphocytes (%) (Auto) 26.7 % Monocytes (%) (Auto) 5.7 % Eosinophils (%) (Auto) 1.7 % Basophils (%) (Auto) 0.6 % Neutrophils # (Auto) 3.55 1.4-6.5 K/uL Lymphocytes # (Auto) 1.45 1.2-3.4 K/uL Monocytes # (Auto) 0.31 0.11-0.59 K/uL Eosinophils # (Auto) 0.09 0-0.5 K/uL Basophils # (Auto) 0.03 0-0.2 K/uL RDW Standard Deviation 43.4 36.4-46.3 fL RDW Coefficient of Variation 13.5 11.5-14.5 % Immature Granulocyte % (Auto) 0.2 % Immature Granulocyte # (Auto) 0.01 0.00-0.02 K/uL Sodium Level 141 136-145 mmol/L Potassium Level 3.6 3.5-5.1 mmol/L Chloride Level 108 98-107 mmol/L Carbon Dioxide Level 27 21-32 mmol/L Anion Gap 6.0 3-11 mmol/L Blood Urea Nitrogen 16 7-18 mg/dl Creatinine 0.85 0.60-1.20 mg/dl Est Creatinine Clear Calc Drug Dose 62.5 ml/min Estimated GFR () 86.9 Estimated GFR (Non- 75.0 BUN/Creatinine Ratio 18.9 10-20 Random Glucose 88 70-99 mg/dl Calcium Level 9.5 8.5-10.1 mg/dl Total Bilirubin 0.3 0.2-1 mg/dl Aspartate Amino Transf (AST/SGOT) 18 15-37 U/L Alanine Aminotransferase (ALT/SGPT) 23 12-78 U/L Alkaline Phosphatase 119 45-117 U/L Total Protein 7.5 6.4-8.2 gm/dl Albumin 4.2 3.4-5.0 gm/dl Globulin 3.3 2.5-4.0 gm/dl Albumin/Globulin Ratio 1.3 0.9-2 Impression Assessment and Plan (1) Renal colic on left side Assessment & Plan: We'll consult Ferdinand Lynn can treat with IV Dilaudid for pain control (2) GERD (gastroesophageal reflux disease) Assessment & Plan: Start Protonix twice a day (3) Advance care planning (4) Tobacco abuse counseling Assessment & Plan: Patient counseled extensively agrees to consider quitting smoking Advanced Directives Existing Living Will: No Existing Power of Bradder: Yes VTE Prophylaxis VTE Risk Assessment Done? Y/N: Yes Risk Level: Low
[2016-09-30] MEDS ORDERED: NURSING VERBAL MED ORDER ONE ×4 (05:00→19:00)
[2016-09-30] MEDS ORDERED: ALUMINUM/MAGNESIUM SUSP 30 ML UDC PO PRN (06:15)
[2016-09-30] MEDS: ONDANSETRON INJ 2 MG/ML 2 ML VIAL IV PRN ×3 (06:18→20:04)
[2016-09-30] MEDS: CALCIUM CARBONATE 500 MG CHEWABLE PO PRN ×3 (06:19→21:29)
[2016-09-30] MEDS: HYDROmorphone INJ 0.5 MG/0.5 ML SYR IV PRN ×2 (06:20→13:57)
[2016-09-30 06:29] VITALS: BP 151/88; PULSE 62
[2016-09-30 07:04] LABS: HEMATOCRIT 35.7 % (37-47); MEAN CELL VOLUME 87.9 fL (80-100); MEAN CORPUSCULAR HEMOGLOBIN 28.6 pg (25-34); MEAN CORPUSCULAR HGB CONC 32.5 g/dl (32-36); MEAN PLATELET VOLUME 9.7 fL (7.4-10.4); PLATELET COUNT 210 K/uL (130-400); RED BLOOD COUNT 4.06 M/uL (4.2-5.4); WHITE BLOOD COUNT 4.66 K/uL (4.8-10.8)
[2016-09-30 07:14] LABS: INR 0.9 (0.9-1.1); PROTHROMBIN TIME (PATIENT) 10.1 SECONDS (9.0-12.0)
[2016-09-30 07:21] VITALS: BP 150/96; PULSE 80; TEMP 36.5; O2SAT 96
[2016-09-30 07:34] LABS: CREATININE 0.78 mg/dl (0.60-1.20)
[2016-09-30 07:35] LABS: BUN/CREATININE RATIO 17.3 (10-20); CALCIUM 8.2 mg/dl (8.5-10.1); POTASSIUM 3.7 mmol/L (3.5-5.1)
[2016-09-30] MEDS: D5W AND 1/2NSS 1,000 ML IV SCH ×2 (07:37→17:48)
[2016-09-30] MEDS: ESCITALOPRAM OXALATE 20 MG TAB PO SCH (09:00)
[2016-09-30] MEDS: ENOXAPARIN 40 MG/0.4 ML SYR SQ SCH (09:00)
[2016-09-30] MEDS: NICOTINE 14 MG/24 HR TDSY TD SCH (09:00)
[2016-09-30] MEDS: PANTOprazole SOD 40 MG TAB PO SCH ×2 (09:00→21:30)
--- NOTE | 2016-09-30 10:31 | Urology Consultation ---
History General Date of Service: Sep 30, 2016. Primary Care Physician: Mahi Hodges C.R.N.P Pt seen a urologist before?: Yes If yes, why?: kidney stones History of Present Illness 61-year-old female admitted overnight with severe lower back pain left greater than right Reports that she has been doing with this pain for greater than one year Numerous injections and efforts with oral pain medications Previously presumed to be related to lumbar disc disease, however, she was identified to have a left distal ureteral calculus last evening. On questioning what brought her to the ER last night she states that she simply reached the end of her rope and could not tolerate the pain any longer She denies any dysuria, hematuria,frequency, or urgency Never has previously required surgery for stones Focus of pain seems to be in the extreme lower back extending over the left gluteus juan Earlier in the week she had a CT scan with and without contrast, this was reviewed and discussed She has several small stones in the kidneys; she has no hydronephrosis; and on CT imaging is unclear whether she had any distal ureteral calculi She does however have numerous phleboliths another pelvic calcifications Lumbar x-ray last night - appears to show a distal left ureteral calculus; nearly 1 cm in length by several millimeters in width Laboratory examinations are essentially unremarkable without any leukocytosis or renal dysfunction Imaging Imaging: CT, K[facility] Laboratory Labs were reviewed and are within normal limits unless listed below. Labs are available in the chart and at [facility] Problem List Medical Problems: (1) Anxiety and depression Status: Chronic (2) Cardiac pacemaker Status: Chronic (3) Flank pain Status: Acute (4) Low back pain Status: Acute (5) Radiculopathy, thoracolumbar region Status: Acute (6) Renal colic Status: Acute Surgical Problems: (1) History of cholecystectomy Status: Chronic (2) Tubal ligation status Status: Chronic Past History anxiety, depression, kidney stones, other Past Surgical History: cholecystectomy, colonoscopy, hysterectomy, pacemaker, tubal ligation Family History Cancer Gallbladder disease Kidney disease Kidney stones Social History Hx Tobacco Use In Past Year?: Yes Smoking: other Alcohol: never Marital status: single Housing status: lives with family Occupation status: disabled History of MDRO No Allergies Coded Allergies: Morphine (Unverified Allergy, Severe, SHORTNESS OF BREATH, 09/29/16) Sulfa Antibiotics (Verified Allergy, Intermediate, ITCHY, 09/29/16) Sulfamethoxazole w/Trimethoprim (Verified Allergy, Intermediate, Itching, 09/29/16) Doxycycline (Verified Allergy, Mild, RED WELTS, 09/29/16) Codeine (Verified Allergy, Unknown, 09/29/16) Penicillins (Verified Allergy, Unknown, 09/29/16) Diphenhydramine (Unverified Adverse Reaction, Severe, UNKNOWN, 09/29/16) CANT TAKE HIGH DOSAGE. Chlorpromazine (Verified Adverse Reaction, Unknown, unknown, 09/29/16) Hydrocodone (Verified Adverse Reaction, Unknown, Vomiting, 09/29/16) Medications Home Medications: Home Meds and Scripts Medications Dose Route/Sig Max Daily Dose Days Date Category Dose Instructions Roxicodone Ir (Oxycodone HCl) 5 Mg Tab 5 Mg PO Q4H PRN 09/29/16 Reported Seroquel (Quetiapine Fumarate) 50 Mg Tab 1 Tab PO HS 09/29/16 Reported Flexeril (Cyclobenzaprine Hcl) 5 Mg Tab 5 Mg PO Q8 PRN 09/29/16 Reported PRN Lexapro (Escitalopram Oxalate) 20 Mg Tab 20 Mg PO DAILY 09/29/16 Reported Aleve (Naproxen) 220 Mg Tab 440 Mg PO Q8 PRN 06/13/16 Reported Ibuprofen 200 Mg Cap 600 Mg PO Q8 PRN 06/13/16 Reported Inpatient Medications: Current Inpatient Medications Medications (Trade) Dose Ordered Sig/Margaret Route Start Time Stop Time Status Last Admin Dose Admin Miscellaneous (Iv Fluids Completed) 1 ea PRN PRN N/A 09/29/16 21:15 09/29/17 21:14 Hydromorphone HCl (Dilaudid Inj) 0.5 mg Q3HWA PRN IV 09/29/16 22:15 10/13/16 22:14 09/30/16 06:20 0.5 MG Nicotine (Nicoderm Cq 14MG Patch) 1 patch QAM TD 09/30/16 09:00 10/30/16 08:59 Miscellaneous (Remove Nicoderm Patch) 1 ea HS N/A 09/30/16 21:00 10/30/16 20:59 Cyclobenzaprine HCl (Flexeril Tab) 5 mg Q8 PRN PO 09/29/16 22:15 10/29/16 22:14 Escitalopram Oxalate (Lexapro Tab) 20 mg DAILY PO 09/30/16 09:00 10/30/16 08:59 Oxycodone HCl (Roxicodone Immediate Rel Tab) 5 mg Q4H PRN PO 09/29/16 22:15 10/13/16 22:14 Quetiapine Fumarate (seroQUEL TAB) 50 mg HS PO 09/30/16 21:00 10/30/16 20:59 Dextrose/Sodium Chloride 1,000 ml @ 100 mls/hr Q10H IV 09/29/16 22:15 10/29/16 22:14 09/30/16 07:37 100 MLS/HR Ondansetron HCl (Zofran Inj) 4 mg Q6H PRN IV 09/29/16 22:15 10/29/16 22:14 09/30/16 06:18 4 MG Enoxaparin Sodium (Lovenox Inj) 40 mg QAM SQ 09/30/16 09:00 10/30/16 08:59 Pantoprazole Sodium (Protonix Tab) 40 mg BID PO 09/30/16 09:00 10/30/16 08:59 Calcium Carbonate (Tums Chew Tab) please give calc... Q4H PRN PO 09/30/16 06:15 10/30/16 06:14 09/30/16 06:19 1,000 MG Al Hydroxide/Mg Hydroxide (Maalox Susp) 30 ml Q6H PRN PO 09/30/16 06:15 10/30/16 06:14 Review of Systems Review of Systems Constitutional: No see HPI, No fever, No chills, No frequent headaches, No weight loss, No problem reported Eyes: No see HPI, No blurred vision, No double vision, No eye pain, No loss of night vision, No problem reported Neurological: No see HPI, No dizzy, No passing out, No numbness/tingling, No seizures, No problem reported Endocrine: No see HPI, No excessive thirst, No too hot, No too cold, No tired/ sluggish, No problem reported Gastrointestinal: + abdominal pain, + nausea, No vomiting Cardiovascular: No see HPI, No heart murmur, No chest pain, No angina, No irregular heartbeat, No palpitations, No swelling ankles/feet, No problem reported Respiratory: No see HPI, No shortness of breath, No wheezing, No coughing up blood, No chronic cough, No problem reported Musculoskeletal: + back pain Blood / Lymphatic: No see HPI, No bleed easily, No bruise easily, No swollen glands, No problem reported Ears / Nose / Throat: No see HPI, No hearing loss, No sinus, No hoarse voice, No sore throat, No problem reported Psychologic / Mental: No see HPI, No nervous, No trouble remembering, No difficulty sleeping, No problem reported Female : + kidney stones, No painful urination, No urinary retention, No blood in urine, No leaking urine All Other Systems: Reviewed and Negative Physical Exam Vital Signs: Vital Signs Past 12 Hours Date Time Temp Pulse Resp B/P (MAP) Pulse Ox O2 Delivery O2 Flow Rate FiO2 09/30/16 07:30 Room Air 09/30/16 07:21 36.5 80 17 150/96 (114) 96 Room Air 09/30/16 06:29 62 151/88 (109) 09/29/16 23:41 Room Air Physical Exam: General Appearance: WD/WN, + mild distress Eyes: bilateral eyes normal inspection ENT: hearing grossly normal Neck: no adenopathy Respiratory/Chest: no respiratory distress, no accessory muscle use Cardiovascular: regular rate, rhythm, no edema Gastrointestinal: Abdomen: normal abdomen (no CVA tenderness; no rebound, no guarding) Bladder: normal bladder Renal: normal renal Extremities: no pedal edema, no calf tenderness Neurologic/Psychiatric: alert, normal mood/affect, oriented x 3 Skin: warm/dry Lymphatic: no adenopathy Assessment & Plan Assessment & Plan Imaging: CT, KUB Chronic, severe lower back pain; suspected left distal ureteral calculus Lengthy discussion today about options, I have stressed that while she may in fact have a left distal ureteral calculus I am uncertain if this is definitively because of her pain That said, given the duration that she has been dealing with the pain and the ambiguity of the cause, I have offered cystoscopy left ureteroscopy with laser lithotripsy and left ureteral stent placement versus observation through the week with ESWL on Sunday She reports she cannot wait until Sunday and would very much like to have definitive treatment LAUREEN I have called the operating room and arrange for an operation tomorrow morning I will advance her diet for now but make her nothing by mouth after midnight She is afebrile and hemodynamically stable Risks benefits and alternatives have been discussed at length, consent is on the chart
[2016-09-30 15:10] LABS: URINE APPEARANCE CLEAR (CLEAR); URINE BILIRUBIN NEG (NEG); URINE COLOR YELLOW; URINE EPITHELIAL CELL AUTO >30 /lpf (0-5); URINE NITRITE NEG (NEG); URINE SPECIFIC GRAVITY 1.011 (1.000-1.030); UROBILINOGEN NEG (NEG)
[2016-09-30 15:24] VITALS: BP 176/99; PULSE 69; TEMP 36.8; O2SAT 97
[2016-09-30 16:10] VITALS: BP 175/97
[2016-09-30 16:12] LABS: MANUAL MICROSCOPIC REQUIRED? NO; REVIEW REQ? NO
[2016-09-30 16:53] VITALS: BP 164/106
[2016-09-30] MEDS ORDERED: PROCHLORPERAZINE INJ 10 MG in SYRINGE 8 ML IV PRN (17:45)
[2016-09-30] MEDS ORDERED: AMLODIPINE BESYLATE 5 MG TAB PO ONE (18:00)
[2016-09-30] MEDS ORDERED: LORAZEPAM 2 MG/ML 1 ML VIAL IV PRN (19:15)
[2016-09-30] MEDS ORDERED: PROCHLORPERAZINE 25 MG SUPP PR PRN (19:15)
--- NOTE | 2016-09-30 19:43 | Hospitalist Progress Note ---
Hospitalist Progress Note Date of Service Sep 30, 2016. Subjective Pt evaluation today including: conversation w/ patient, physical exam Patient with no complaints presently pain is well-controlled is having nausea Objective Vital Signs Date Time Temp Pulse Resp B/P (MAP) Pulse Ox O2 Delivery O2 Flow Rate FiO2 09/30/16 16:53 164/106 (125) 09/30/16 16:10 175/97 (123) 09/30/16 15:45 Room Air 09/30/16 15:24 36.8 69 16 176/99 (124) 97 Room Air 09/30/16 07:30 Room Air 09/30/16 07:21 36.5 80 17 150/96 (114) 96 Room Air 09/30/16 06:29 62 151/88 (109) 09/29/16 23:41 Room Air 09/29/16 22:20 36.6 62 16 164/96 (118) 96 Room Air 09/29/16 22:18 96 Room Air 09/29/16 21:59 73 18 151/95 95 09/29/16 21:00 73 18 151/95 95 Room Air Physical Exam General Appearance: no apparent distress ENT: hearing grossly normal Neck: trachea midline Respiratory/Chest: lungs clear Cardiovascular: regular rate, rhythm Abdomen: normal bowel sounds, non tender, soft Extremities: normal range of motion Neurologic/Psychiatric: alert Laboratory Results Last 24 Hours Test 09/30/16 00:00 09/30/16 06:37 Urine Color YELLOW Urine Appearance CLEAR Urine pH 8.0 Urine Specific [place] 1.011 Urine Protein NEG Urine Glucose (UA) NEG Urine Ketones NEG Urine Occult Blood NEG Urine Nitrite NEG Urine Bilirubin NEG Urine Urobilinogen NEG Urine Leukocyte Esterase TRACE Urine WBC (Auto) 1-5 /hpf Urine RBC (Auto) 0-4 /hpf Urine Hyaline Casts (Auto) 1-5 /lpf Urine Epithelial Cells (Auto) >30 /lpf Urine Bacteria (Auto) NEG White Blood Count 4.66 K/uL Red Blood Count 4.06 M/uL Hemoglobin 11.6 g/dL Hematocrit 35.7 % Mean Corpuscular Volume 87.9 fL Mean Corpuscular Hemoglobin 28.6 pg Mean Corpuscular Hemoglobin Concent 32.5 g/dl RDW Standard Deviation 42.8 fL RDW Coefficient of Variation 13.3 % Platelet Count 210 K/uL Mean Platelet Volume 9.7 fL Prothrombin Time 10.1 SECONDS Prothromb Time International Ratio 0.9 Activated Partial Thromboplast Time 26.5 SECONDS Partial Thromboplastin Ratio 1.0 Sodium Level 140 mmol/L Potassium Level 3.7 mmol/L Chloride Level 109 mmol/L Carbon Dioxide Level 26 mmol/L Anion Gap 5.0 mmol/L Blood Urea Nitrogen 14 mg/dl Creatinine 0.78 mg/dl Est Creatinine Clear Calc Drug Dose 64.2 ml/min Estimated GFR () 96.4 Estimated GFR (Non- 83.2 BUN/Creatinine Ratio 17.3 Random Glucose 101 mg/dl Calcium Level 8.2 mg/dl Assessment and Plan (1) Renal colic on left side Assessment & Plan: Urology input appreciated patient agrees to urology intervention tomorrow (2) GERD (gastroesophageal reflux disease) (3) Advance care planning (4) Tobacco abuse counseling Continue nicotine patch
[2016-09-30] MEDS: OXYCODONE HCL IR 5 MG TAB (IMMEDIATE RELEASE) PO PRN (20:04)
[2016-09-30] MEDS: SENNA 17.6 MG/10 ML UDP PO SCH (21:30)
[2016-09-30] MEDS: QUETIAPINE FUMARATE 25 MG TAB PO SCH (21:31)
[2016-09-30] MEDS: LORAZEPAM INJ 0.5 MG in SYRINGE 0.75 ML IV PRN (22:22)
[2016-09-30 22:55] VITALS: BP 123/81; PULSE 79; TEMP 36.7; O2SAT 94
[2016-10-01] VITALS (13 sets, daily range): BP systolic 111–181; BP diastolic 79–99; PULSE 69–91; TEMP 36.4–36.8; O2SAT 93–98
[2016-10-01] MEDS: D5W AND 1/2NSS 1,000 ML IV SCH ×3 (03:29→23:28)
[2016-10-01] MEDS ORDERED: CIPROFLOXACIN / D5W 400 MG IV SCH (06:00)
[2016-10-01] MEDS ORDERED: CIPROFLOXACIN 400MG / 200ML D5W IV ONE (06:00)
[2016-10-01] MEDS ORDERED: PROPOFOL IV EMULSION 10 MG/ML 20 ML VIAL IV ONE (06:53)
[2016-10-01] MEDS ORDERED: LIDOCAINE HCL 2% 2 ML VIAL (20MG/ML) ONE (06:53)
[2016-10-01] MEDS ORDERED: FENTANYL CITRATE INJ 50 MCG/1 ML 2 ML VIAL ONE (06:54)
[2016-10-01] MEDS ORDERED: MIDAZOLAM HCL 1 MG/ML 2ML VIAL ONE (06:54)
--- NOTE | 2016-10-01 07:37 | Progress Note ---
Subjective Date of Service: Oct 01, 2016. Subjective Pt evaluation today including: conversation w/ patient, physical exam, chart review, lab review Voiding: no voiding problems no real change overnight - still with lower back pain L>R Problem List Medical Problems: (1) Anxiety and depression Status: Chronic (2) Cardiac pacemaker Status: Chronic (3) Flank pain Status: Acute (4) Low back pain Status: Acute (5) Radiculopathy, thoracolumbar region Status: Acute (6) Renal colic Status: Acute Surgical Problems: (1) History of cholecystectomy Status: Chronic (2) Tubal ligation status Status: Chronic Review of Systems Constitutional: No see HPI, No fever, No chills, No sweats, No weight loss, No weakness, No fatigue, No problem reported Eyes: No see HPI, No worsening of vision, No eye pain, No redness, No discharge , No diplopia, No problem reported Female : No see HPI, No dysuria, No urinary frequency, No hematuria, No incontinence, No abnormal vaginal bleeding, No vaginal discharge, No problem reported Objective Vital Signs Date Time Temp Pulse Resp B/P (MAP) Pulse Ox O2 Delivery O2 Flow Rate FiO2 10/01/16 07:05 36.7 70 17 136/87 (103) 95 Room Air 09/30/16 23:05 Room Air 09/30/16 22:55 36.7 79 16 123/81 (95) 94 Room Air 09/30/16 16:53 164/106 (125) 09/30/16 16:10 175/97 (123) 09/30/16 15:45 Room Air 09/30/16 15:24 36.8 69 16 176/99 (124) 97 Room Air Physical Exam General Appearance: no apparent distress Eyes: normal inspection ENT: hearing grossly normal Neck: no adenopathy Respiratory/Chest: no respiratory distress, no accessory muscle use Cardiovascular: regular rate, rhythm, no edema Abdomen: non tender, soft Extremities: non-tender Neurologic/Psychiatric: alert, normal mood/affect, oriented x 3 Skin: normal color, warm/dry Assessment and Plan Left distal ureteral calc and chronic back pain - plan for cysto, URS, LL and stent - risks, benefits, and alternatives discussed
[2016-10-01] MEDS ORDERED: FENTANYL CITRATE INJ 50 MCG/1 ML 2 ML VIAL IV PRN (07:45)
[2016-10-01] MEDS ORDERED: EpHEDrine SULFATE INJ 50 MG/ML AMP IV PRN (07:45)
[2016-10-01] MEDS ORDERED: ONDANSETRON INJ 2 MG/ML 2 ML VIAL IV PRN (07:45)
[2016-10-01] MEDS ORDERED: ATROPINE SULFATE 0.1 MG/ML 5ML SYR IV PRN (07:45)
[2016-10-01] MEDS ORDERED: CONRAY 30% 150ML BOTTLE ONE (07:50)
[2016-10-01] MEDS ORDERED: ONDANSETRON INJ 2 MG/ML 2 ML VIAL ONE (07:59)
[2016-10-01] MEDS ORDERED: DEXAMETHASONE SOD INJ 4 MG/ML VIAL ONE (07:59)
[2016-10-01] MEDS ORDERED: KETOROLAC TROMETHAMINE 30 MG/ML VIAL ONE (08:20)
--- NOTE | 2016-10-01 08:55 | [facility] Operative Report ---
Operative Report Operative Date Oct 01, 2016. Pre-Operative Diagnosis Chronic, severe lower back pain; left distal ureteral calculus Post-Operative Diagnosis Left distal ureteral calculus Procedure(s) Performed Cystoscopy, Left Urteroscopy, Laser Lithotripsy, Stent Placement [id number] Surgeon Dr. Salomon Cnc Cutting Operator Surgeon(s) none Estimated Blood Loss 0 cc Findings Impacted distal left ureteral calculus Specimens none per surgeon Drains [id number] Complication(s) None Disposition Recovery Room / PACU (stable) Indications Chronic lower back pain; recently identified left ureteral calculus Description of Procedure Josseilne Sorto was identified in the preoperative holding area, appropriate informed consent was reviewed and completed and the patient was transported to the operating suite. Upon arrival she received appropriate preoperative antibiotics in the form of ciprofloxacin. Adequate general anesthesia was achieved, and the patient was placed in dorsal lithotomy position where she was sterilely prepped and draped in standard fashion. I began the case by passing a 22 Irish cystoscope with 30 lens. Full inspection of the bladder was carried out without any bladder pathology identified. Ureteral orifices were noted to be in orthotopic position. After my inspection I turned my attention to the left ureteral orifice and cannulated it with a 5 Irish open-ended catheter and a sensor wire. There was an opacity visualized in the distal ureter consistent with the stones seen previously on imaging. I was able to bypass the stone with the wire. I then withdrew the cystoscope and reentered with a semirigid ureteroscope. I was able to guide this ureteroscope into the distal ureter at which point I encountered the stone in a location approximately 2 cm from the UO. The stone was noted to be quite impacted with ureteral inflammation. I passed a 400 laser fiber and I commenced laser lithotripsy. I was able to fragment the stone completely and free it from its site of impaction. I was then able to irrigate all stone fragments at the distal ureter. I opacified the collecting system using Conray which confirmed no extravasation, and then placed a 6 Irish by 24 cm double-J ureteral stent. Bladder was emptied and the case concluded. Patient was extubated and taken to the PACU in stable condition. I attest to the content of the Intraoperative Record and any orders documented therein. Any exceptions are noted below.
[2016-10-01] MEDS: AMLODIPINE BESYLATE 5 MG TAB PO SCH (08:58)
[2016-10-01] MEDS: ESCITALOPRAM OXALATE 20 MG TAB PO SCH (08:58)
[2016-10-01] MEDS: PANTOprazole SOD 40 MG TAB PO SCH ×2 (08:58→21:30)
[2016-10-01] MEDS: NICOTINE 14 MG/24 HR TDSY TD SCH (08:59)
[2016-10-01] MEDS: ENOXAPARIN 40 MG/0.4 ML SYR SQ SCH (08:59)
--- NOTE | 2016-10-01 09:13 | Progress Note ---
Progress Note Date of Service Oct 01, 2016. Progress Note s.p ureteroscopy and laser lithotripsy this AM - stent in place currently - if she feels well this morning, she is stable for d/c home from a perspective
--- NOTE | 2016-10-01 09:46 | Anesthesiology Progress Note ---
Anesthesia Post Op Note Date & Time Oct 01, 2016 at 09:45 Vital Signs Pain Intensity: 0.0 Vital Signs Past 12 Hours Date Time Temp Pulse Resp B/P (MAP) Pulse Ox O2 Delivery O2 Flow Rate FiO2 10/01/16 09:36 Nasal Cannula 10/01/16 09:28 95 Nasal Cannula 2.0 10/01/16 09:10 36.5 73 14 154/99 96 Oxymask 2 10/01/16 09:00 74 14 134/89 98 Oxymask 2 10/01/16 08:50 71 14 147/81 97 Oxymask 3 10/01/16 08:40 72 16 150/88 99 Oxymask 5 10/01/16 08:33 36.4 75 16 161/98 99 Oxymask 10 10/01/16 07:05 36.7 70 17 136/87 (103) 95 Room Air 09/30/16 23:05 Room Air 09/30/16 22:55 36.7 79 16 123/81 (95) 94 Room Air Notes Mental Status: alert / awake / arousable, participated in evaluation Pt Amnestic to Procedure: Yes Nausea / Vomiting: adequately controlled Pain: adequately controlled Airway Patency, RR, SpO2: stable & adequate BP & HR: stable & adequate Hydration State: stable & adequate Anesthetic Complications: no major complications apparent
[2016-10-01] MEDS: HYDROmorphone INJ 0.5 MG/0.5 ML SYR IV PRN (13:53)
[2016-10-01] MEDS: ONDANSETRON INJ 2 MG/ML 2 ML VIAL IV PRN (14:34)
[2016-10-01] MEDS: CALCIUM CARBONATE 500 MG CHEWABLE PO PRN (16:27)
[2016-10-01] MEDS: LORAZEPAM INJ 0.5 MG in SYRINGE 0.75 ML IV PRN (16:29)
[2016-10-01] MEDS ORDERED: NURSING VERBAL MED ORDER ONE (18:00)
[2016-10-01] MEDS ORDERED: HYDROmorphone INJ 1 MG/ML SYR IV PRN (18:15)
--- NOTE | 2016-10-01 18:41 | Hospitalist Progress Note ---
Hospitalist Progress Note Date of Service Oct 01, 2016. Subjective Pt evaluation today including: conversation w/ patient Patient complaining of back pain after procedure Objective Vital Signs Date Time Temp Pulse Resp B/P (MAP) Pulse Ox O2 Delivery O2 Flow Rate FiO2 10/01/16 16:44 160/93 (115) 10/01/16 15:15 Room Air 10/01/16 15:13 36.4 69 18 171/98 (122) 96 Room Air 10/01/16 12:31 86 17 150/89 (109) 93 Room Air 10/01/16 11:30 36.7 91 16 134/81 (98) 95 Room Air 10/01/16 10:29 36.6 74 16 132/85 (101) 93 Room Air 10/01/16 09:55 84 16 111/89 (96) 95 Nasal Cannula 2.0 10/01/16 09:36 Nasal Cannula 10/01/16 09:28 95 Nasal Cannula 2.0 10/01/16 09:20 36.4 70 15 136/90 (105) 95 Nasal Cannula 2.0 10/01/16 09:10 36.5 73 14 154/99 96 Oxymask 2 10/01/16 09:00 74 14 134/89 98 Oxymask 2 10/01/16 08:50 71 14 147/81 97 Oxymask 3 10/01/16 08:40 72 16 150/88 99 Oxymask 5 10/01/16 08:33 36.4 75 16 161/98 99 Oxymask 10 10/01/16 07:05 36.7 70 17 136/87 (103) 95 Room Air 09/30/16 23:05 Room Air 09/30/16 22:55 36.7 79 16 123/81 (95) 94 Room Air Physical Exam General Appearance: no apparent distress ENT: hearing grossly normal Neck: trachea midline Respiratory/Chest: lungs clear Cardiovascular: regular rate, rhythm Abdomen: normal bowel sounds Extremities: normal range of motion Laboratory Results Last Resulted CBC 09/30/16 06:37 Last Resulted BMP 09/30/16 06:37 Assessment and Plan (1) Renal colic on left side Assessment & Plan: Status post cystoscopically ureteroscopically, with laser lithotripsy and stent placement postoperative day 0 procedure was successful however patient continues with back pain and is requesting orthopedic consult (2) GERD (gastroesophageal reflux disease) (3) Advance care planning (4) Tobacco abuse counseling Assessment & Plan: Nicotine patch Continue nicotine patch
[2016-10-01] MEDS: METOCLOPRAMIDE HCL INJ 5 MG/ML 2 ML VIAL IV SCH (20:12)
[2016-10-01] MEDS ORDERED: AMLODIPINE BESYLATE 5 MG TAB PO ONE (21:15)
[2016-10-01] MEDS: SENNA 17.6 MG/10 ML UDP PO SCH (21:31)
[2016-10-01] MEDS: QUETIAPINE FUMARATE 25 MG TAB PO SCH (21:31)
[2016-10-02 03:00] VITALS: BP 128/73; PULSE 76; TEMP 36.6; O2SAT 96
[2016-10-02 07:13] LABS: HEMATOCRIT 34.5 % (37-47); MEAN CELL VOLUME 85.4 fL (80-100); MEAN CORPUSCULAR HEMOGLOBIN 29.2 pg (25-34); MEAN CORPUSCULAR HGB CONC 34.2 g/dl (32-36); MEAN PLATELET VOLUME 9.8 fL (7.4-10.4); PLATELET COUNT 208 K/uL (130-400); RED BLOOD COUNT 4.04 M/uL (4.2-5.4); WHITE BLOOD COUNT 5.56 K/uL (4.8-10.8)
[2016-10-02] MEDS: METOCLOPRAMIDE HCL INJ 5 MG/ML 2 ML VIAL IV SCH ×2 (07:37→12:23)
[2016-10-02] MEDS: PANTOprazole SOD 40 MG TAB PO SCH (07:37)
[2016-10-02] MEDS: ENOXAPARIN 40 MG/0.4 ML SYR SQ SCH (07:38)
--- NOTE | 2016-10-02 07:44 | Progress Note ---
Subjective Date of Service: Oct 02, 2016. Subjective Pt evaluation today including: conversation w/ patient, chart review, lab review Voiding: no voiding problems 61 yo female s/p left URS/LL. Pt continues to have some left low back pain. Feels this may be musculoskeletal in nature, and is requesting an orthopedic consult from Dr. Driscoll for further evaluation. She was noted to have ongoing left back pain for several months when I saw her as an outpatient. No ureteral stones at that time. She reports she is tolerating the stent much better than her previous experience. See previous admission last year. She does note gross hematuria, and c/o persistent n/v this morning. Zofran, Reglan, Maalox, and Compazine suppositories ordered. She feels the pain meds may be making her sick. Problem List Medical Problems: (1) Anxiety and depression Status: Chronic (2) Cardiac pacemaker Status: Chronic (3) Flank pain Status: Acute (4) Low back pain Status: Acute (5) Radiculopathy, thoracolumbar region Status: Acute (6) Renal colic Status: Acute Surgical Problems: (1) History of cholecystectomy Status: Chronic (2) Tubal ligation status Status: Chronic Review of Systems Constitutional: No fever, No chills Respiratory: No shortness of breath Cardiac: No chest pain Abdomen: + nausea, + vomiting, No pain Female : + hematuria Heme: No abnormal bleeding/bruising Objective Vital Signs Date Time Temp Pulse Resp B/P (MAP) Pulse Ox O2 Delivery O2 Flow Rate FiO2 10/02/16 03:00 36.6 76 16 128/73 (91) 96 Room Air 10/01/16 23:25 Room Air 10/01/16 23:20 36.8 78 16 144/81 (102) 98 Room Air 10/01/16 20:00 181/93 (122) 10/01/16 16:44 160/93 (115) 10/01/16 16:27 167/99 (121) 10/01/16 15:33 171/98 (122) 10/01/16 15:15 Room Air 10/01/16 15:13 36.4 69 18 171/98 (122) 96 Room Air 10/01/16 12:31 86 17 150/89 (109) 93 Room Air 10/01/16 11:30 36.7 91 16 134/81 (98) 95 Room Air 10/01/16 10:29 36.6 74 16 132/85 (101) 93 Room Air 10/01/16 09:55 84 16 111/89 (96) 95 Nasal Cannula 2.0 10/01/16 09:36 Nasal Cannula 10/01/16 09:28 95 Nasal Cannula 2.0 10/01/16 09:20 36.4 70 15 136/90 (105) 95 Nasal Cannula 2.0 10/01/16 09:10 36.5 73 14 154/99 96 Oxymask 2 10/01/16 09:00 74 14 134/89 98 Oxymask 2 10/01/16 08:50 71 14 147/81 97 Oxymask 3 10/01/16 08:40 72 16 150/88 99 Oxymask 5 10/01/16 08:33 36.4 75 16 161/98 99 Oxymask 10 Physical Exam General Appearance: no apparent distress Eyes: normal inspection ENT: hearing grossly normal Neck: no JVD Respiratory/Chest: no respiratory distress, no accessory muscle use Cardiovascular: no JVD Extremities: normal inspection Neurologic/Psychiatric: alert, normal mood/affect, oriented x 3 Skin: normal color Laboratory Results Last 24 Hours Test 10/02/16 06:43 White Blood Count 5.56 K/uL Red Blood Count 4.04 M/uL Hemoglobin 11.8 g/dL Hematocrit 34.5 % Mean Corpuscular Volume 85.4 fL Mean Corpuscular Hemoglobin 29.2 pg Mean Corpuscular Hemoglobin Concent 34.2 g/dl RDW Standard Deviation 40.2 fL RDW Coefficient of Variation 12.8 % Platelet Count 208 K/uL Mean Platelet Volume 9.8 fL Assessment and Plan POD #1 s/p left URS/LL AFVSS. Pt doing well from perspective. Hematuria expected. Encourage fluids. Management of n/v per primary service. Management of chronic back pain and ortho consult per primary service. Pt OK for d/c home from perspective. Will arrange for outpatient f/u with Dr. Salomon for stent removal.
[2016-10-02 07:48] LABS: CREATININE 0.87 mg/dl (0.60-1.20)
[2016-10-02 07:49] VITALS: BP 133/82; PULSE 73; TEMP 36.6; O2SAT 96
[2016-10-02] MEDS: AMLODIPINE BESYLATE 5 MG TAB PO SCH (08:06)
[2016-10-02] MEDS: ESCITALOPRAM OXALATE 20 MG TAB PO SCH (08:07)
[2016-10-02] MEDS: NICOTINE 14 MG/24 HR TDSY TD SCH (08:07)
[2016-10-02 09:03] LABS: BUN/CREATININE RATIO 13.3 (10-20); CALCIUM 8.8 mg/dl (8.5-10.1); CREATININE 0.89 mg/dl (0.60-1.20); POTASSIUM 3.3 mmol/L (3.5-5.1)
[2016-10-02] MEDS: D5W AND 1/2NSS 1,000 ML IV SCH (09:41)
[2016-10-02] MEDS: OXYCODONE HCL IR 5 MG TAB (IMMEDIATE RELEASE) PO PRN (10:09)
--- NOTE | 2016-10-02 11:03 | Orthopedic Consultation ---
Orthopedic Consultation Date of Consultation: Oct 02, 2016. Attending Physician: Kwaku Alvarado D.O. Reason for Consultation: Lower back pain History of Present Illness This is a 61-year-old female with lower back pain for the past year. No precipitating accident, trauma or fall. She reports occasional leg pain left greater than right that is nonspecific. No specific dermatome. She denies bowel or bladder changes. She ambulates independently. She states she has back pain with all activities including prolonged sitting, standing, walking, lying down. She reports nothing is pain related. She reports she has trialed physical therapy within the past year without relief. She has recently been under the pain management care of a [place] [facility] center. She describes receiving possible facet injections about 3 weeks ago without relief. She states they're also managing her narcotics which are currently oxycodone. She reports she has an upcoming appointment this October 04 and [place]. Past Medical/Surgical History Medical Problems: (1) Anxiety and depression Status: Chronic (2) Cardiac pacemaker Status: Chronic (3) Flank pain Status: Acute (4) Low back pain Status: Acute (5) Radiculopathy, thoracolumbar region Status: Acute (6) Renal colic Status: Acute Surgical Problems: (1) History of cholecystectomy Status: Chronic (2) Tubal ligation status Status: Chronic Family History Cancer Gallbladder disease Kidney disease Kidney stones Social History Smoking Status: Current Every Day Smoker Drug Use: none Marital Status: single Occupation Status: disabled Allergies Coded Allergies: Morphine (Unverified Allergy, Severe, SHORTNESS OF BREATH, 09/29/16) Sulfa Antibiotics (Verified Allergy, Intermediate, ITCHY, 09/29/16) Sulfamethoxazole w/Trimethoprim (Verified Allergy, Intermediate, Itching, 09/29/16) Doxycycline (Verified Allergy, Mild, RED WELTS, 09/29/16) Codeine (Verified Allergy, Unknown, 09/29/16) Penicillins (Verified Allergy, Unknown, 09/29/16) Diphenhydramine (Unverified Adverse Reaction, Severe, UNKNOWN, 09/29/16) CANT TAKE HIGH DOSAGE. Chlorpromazine (Verified Adverse Reaction, Unknown, unknown, 09/29/16) Hydrocodone (Verified Adverse Reaction, Unknown, Vomiting, 09/29/16) Home Medications Scheduled Escitalopram Oxalate (Lexapro), 20 MG PO DAILY Quetiapine Fumarate (Seroquel), 1 TAB PO HS Scheduled PRN Cyclobenzaprine Hcl (Flexeril), 5 MG PO Q8 PRN for Pain Ibuprofen (Ibuprofen), 600 MG PO Q8 PRN for Pain Naproxen (Aleve), 440 MG PO Q8 PRN for Pain Oxycodone Ir (Roxicodone Ir), 5 MG PO Q4H PRN for Severe Pain Current Inpatient Medications Current Inpatient Medications Medications (Trade) Dose Ordered Sig/Margaret Route Start Time Stop Time Status Last Admin Dose Admin Miscellaneous (Iv Fluids Completed) 1 ea PRN PRN N/A 09/29/16 21:15 09/29/17 21:14 Hydromorphone HCl (Dilaudid Inj) 0.5 mg Q3HWA PRN IV 09/29/16 22:15 10/13/16 22:14 10/01/16 13:53 0.5 MG Nicotine (Nicoderm Cq 14MG Patch) 1 patch QAM TD 09/30/16 09:00 10/30/16 08:59 Miscellaneous (Remove Nicoderm Patch) 1 ea HS N/A 09/30/16 21:00 10/30/16 20:59 Cyclobenzaprine HCl (Flexeril Tab) 5 mg Q8 PRN PO 09/29/16 22:15 10/29/16 22:14 Escitalopram Oxalate (Lexapro Tab) 20 mg DAILY PO 09/30/16 09:00 10/30/16 08:59 10/02/16 08:07 20 MG Oxycodone HCl (Roxicodone Immediate Rel Tab) 5 mg Q4H PRN PO 09/29/16 22:15 10/13/16 22:14 10/02/16 10:09 5 MG Quetiapine Fumarate (seroQUEL TAB) 50 mg HS PO 09/30/16 21:00 10/30/16 20:59 10/01/16 21:31 50 MG Dextrose/Sodium Chloride 1,000 ml @ 100 mls/hr Q10H IV 09/29/16 22:15 10/29/16 22:14 10/02/16 09:41 100 MLS/HR Ondansetron HCl (Zofran Inj) 4 mg Q6H PRN IV 09/29/16 22:15 10/29/16 22:14 10/01/16 14:34 4 MG Enoxaparin Sodium (Lovenox Inj) 40 mg QAM SQ 09/30/16 09:00 10/30/16 08:59 Pantoprazole Sodium (Protonix Tab) 40 mg BID PO 09/30/16 09:00 10/30/16 08:59 10/02/16 07:37 40 MG Calcium Carbonate (Tums Chew Tab) please give calc... Q4H PRN PO 09/30/16 06:15 10/30/16 06:14 10/01/16 16:27 1,000 MG Al Hydroxide/Mg Hydroxide (Maalox Susp) 30 ml Q6H PRN PO 09/30/16 06:15 10/30/16 06:14 10/01/16 15:33 30 ML Amlodipine Besylate (Norvasc Tab) 5 mg QAM PO 10/01/16 09:00 10/31/16 08:59 10/02/16 08:06 5 MG Prochlorperazine (Compazine Supp) 25 mg Q6H PRN NE 09/30/16 19:15 10/30/16 19:14 Lorazepam 0.5 mg/ Syringe 1 ml @ 1 mls/min Q6H PRN IV 09/30/16 19:15 10/30/16 19:14 10/01/16 16:29 1 MLS/MIN Lorazepam (Ativan Inj) 0.5 mg Q6H PRN IV 09/30/16 19:15 10/30/16 19:14 Senna (Senokot Syrup) 17.6 mg QPM PO 09/30/16 21:00 10/30/16 20:59 10/01/16 21:31 17.6 MG Hydromorphone HCl (Dilaudid Inj) 1 mg Q3H PRN IV 10/01/16 18:15 10/15/16 18:14 10/01/16 18:10 1 MG Metoclopramide HCl (Reglan Inj) 10 mg ACHS IV 10/01/16 21:00 10/31/16 20:59 10/02/16 07:37 10 MG Physical Exam Date Time Temp Pulse Resp B/P (MAP) Pulse Ox O2 Delivery O2 Flow Rate FiO2 10/02/16 07:49 36.6 73 16 133/82 (99) 96 Room Air 10/02/16 07:30 Room Air 10/02/16 03:00 36.6 76 16 128/73 (91) 96 Room Air 10/01/16 23:25 Room Air 10/01/16 23:20 36.8 78 16 144/81 (102) 98 Room Air 10/01/16 20:00 181/93 (122) 10/01/16 16:44 160/93 (115) 10/01/16 16:27 167/99 (121) 10/01/16 15:33 171/98 (122) 10/01/16 15:15 Room Air 10/01/16 15:13 36.4 69 18 171/98 (122) 96 Room Air 10/01/16 12:31 86 17 150/89 (109) 93 Room Air 10/01/16 11:30 36.7 91 16 134/81 (98) 95 Room Air She rolls over in bed with Ezeform E. She is able to sit up without difficulty. There is no abnormal skin markings or thoracolumbar spine. She is tender to lesion of the left SI joint. Her lower extremity strength is intact bilaterally. Negative tension signs bilaterally. Negative logging bilaterally. No evidence of ankle clonus bilaterally. Laboratory Results Last 24 Hours Test 10/02/16 06:43 White Blood Count 5.56 K/uL Red Blood Count 4.04 M/uL Hemoglobin 11.8 g/dL Hematocrit 34.5 % Mean Corpuscular Volume 85.4 fL Mean Corpuscular Hemoglobin 29.2 pg Mean Corpuscular Hemoglobin Concent 34.2 g/dl RDW Standard Deviation 40.2 fL RDW Coefficient of Variation 12.8 % Platelet Count 208 K/uL Mean Platelet Volume 9.8 fL Sodium Level 140 mmol/L Potassium Level 3.3 mmol/L Chloride Level 106 mmol/L Carbon Dioxide Level 29 mmol/L Anion Gap 5.0 mmol/L Blood Urea Nitrogen 12 mg/dl Creatinine 0.89 mg/dl Est Creatinine Clear Calc Drug Dose 56.3 ml/min Estimated GFR () 82.2 Estimated GFR (Non- 70.9 BUN/Creatinine Ratio 13.3 Random Glucose 103 mg/dl Calcium Level 8.8 mg/dl [~ rep ct add3]] L-SPINE MIN 4 VIEWS ROUTINE CLINICAL HISTORY: Low back pain. Nausea. COMPARISON STUDY: 09/23/2015, CT scan dated 09/25/2016 FINDINGS: No acute fractures are visualized. There are surgical clips within the right upper quadrant consistent with a prior cholecystectomy. There are multiple nonspecific pelvic basin calcifications. There are few faint opacities projected over each renal shadow. The findings are consistent with bilateral nephrolithiasis. There are no acute fractures or subluxations within the lumbar spine. There are mild multilevel degenerative changes. There are multiple nonspecific pelvic basin calcifications. An 11 mm left pelvic basin calcification was not present in February 2016. This is felt to represent a nonobstructing distal left ureteral calculus.. IMPRESSION: 1. Minor degenerative change. No fractures or subluxations identified 2. Multiple pelvic basin calcifications including an 11 mm left pelvic basin calcification which was not present in February 2016. Upon review of the prior September 25, 2016 CT scan, it is felt that this calcification represents a nonobstructing distal left ureteral calculus. An addendum to that CT report will be issued. Electronically signed by: Jose Enrique Wang M.D. 09/29/2016 5:52 PM Dictated Date/Time: 09/29/2016 5:45 PM The status of this report is Signed. Draft = Not yet reviewed or approved by Radiologist. Signed = Reviewed and approved by Radiologist. Assessment & Plan Chronic back pain. At this point in time she has predominantly axial back pain. She reports she has had an MRI from [place] which are trying to gather. X-rays are rather unremarkable. Current plan is starts physical therapy/occupational therapy. She I have encouraged her to continue with pain management clinic in [place] for treatment including narcotics as well as injections. We'll possibly consider a left SI joint injection as well. No acute surgical indications. Please do not hesitate to contact us if you've any further questions.
[2016-10-02] MEDS ORDERED: NRV5 PO (12:36)
--- NOTE | 2016-10-02 12:41 | Discharge Instructions ---
Discharge Instructions Date of Service Oct 02, 2016. Admission Reason for Admission: Renal Colic On Left Side Discharge Discharge Diagnosis / Problem: Renal colic Discharge Goals Goal(s): Decrease discomfort, Improve function, Increase independence, Improve disease control, Learn about illness, Diagnostic testing, Therapeutic intervention, Prevent Disease Progression Activity Recommendations Activity Limitations: resume your previous activity Exercise/Sports Limitations: none Driving or Machine Use: no limitations . Instructions / Follow-Up Instructions / Follow-Up Patient to be discharged home Addition of norvasc 5 mg 1 tablet daily for elevated blood pressure No other changes in medications Please follow up with Dr Salomon as scheduled Please follow up with pain management clinic as scheduled Blood in urine to be expected Current Hospital Diet Patient's current hospital diet: Regular Diet Discharge Diet Recommended Diet: Regular Diet Procedures Procedures Performed: Cystoscopy, Left Urteroscopy, Laser Lithotripsy, Stent Placement [id number] Pending Studies Studies pending at discharge: no Medical Emergencies . Who to Call and When: Medical Emergencies: If at any time you feel your situation is an emergency, please call 911 immediately. . Non-Emergent Contact Non-Emergency issues call your: Primary Care Provider Call Non-Emergent contact if: you have a fever, your pain is worsening . . "Provider Documentation" section prepared by Kwaku Alvarado. . VTE Core Measure Inpt VTE Proph given/why not?: Enoxaparin (Lovenox)SQ, Refusal of treatmnt by pt
[2016-10-02 12:54] VITALS: BP 133/82; PULSE 73; TEMP 36.6; O2SAT 96
--- NOTE | 2016-10-02 16:12 | Discharge Summary ---
Discharge Summary Date of Service Oct 02, 2016. Discharge Summary Admission Date: Sep 29, 2016 at 21:06 Discharge Date: Oct 02, 2016 Discharge Disposition: Home Principal Diagnosis: Renal colic Problems/Secondary Diagnoses: (1) Anxiety and depression Status: Chronic (2) Cardiac pacemaker Status: Chronic (3) History of cholecystectomy Status: Chronic (4) Tubal ligation status Status: Chronic Consultations: Urology Orthopedics Discharge Exam Review of Systems: Constitutional: No fever, No chills, No weight loss, No weakness, No fatigue ENT: No hearing loss, No unusual epistaxis, No nasal symptoms, No sore throat Respiratory: No cough, No sputum, No wheezing, No shortness of breath Cardiovascular: No chest pain, No orthopnea, No PND, No edema Abdomen: No pain, No nausea, No vomiting, No diarrhea Musculoskeletal: + joint pain, No muscle pain, No swelling, No calf pain Genitourinary - Female: No dysuria, No urinary frequency, No urinary urgency , No urinary incontinence Neurologic: No memory loss, No paralysis, No weakness, No numbness/tingling Psychiatric: No depression symptoms, No anhedonism, No anxiety, No insomnia Endocrine: No fatigue, No excessive thirst Integumentary: No rash, No itch Physical Exam: General Appearance: WD/WN, no apparent distress Eyes: normal inspection, PERRL, EOMI, sclerae normal ENT: normal ENT inspection, hearing grossly normal, TMs normal, pharynx normal Neck: supple, no adenopathy, thyroid normal, no JVD Respiratory/Chest: chest non-tender, lungs clear, normal breath sounds, no respiratory distress Cardiovascular: regular rate, rhythm, no edema, no gallop, no JVD Abdomen / GI: normal bowel sounds, non tender, soft, no organomegaly Extremities: normal inspection, no calf tenderness, normal capillary refill , no pedal edema Neurologic/Psychiatric: no motor/sensory deficits, alert, normal mood/affect , normal reflexes Skin: normal color, warm/dry, no rash Lymphatic: no adenopathy Hospital Course (1) Renal colic on left side Status post cystoscopically ureteroscopically POD #1, with laser lithotripsy and stent placement SLight hematuria noticed Hg stable OK for DC, f/u with urology for stent removal Back pain chronic, f/u with pain management clinic in [place] on DC, Orthopedics consulted, no surgical intervention required and recent MRI (2) GERD (gastroesophageal reflux disease) Stable (3) Advance care planning (4) Tobacco abuse counseling Total Time Spent: Greater than 30 minutes This includes examination of the patient, discharge planning, medication reconciliation, and communication with other providers. Discharge Instructions Please refer to the electronic Patient Visit Report (Discharge Instructions) for additional information. Additional Copies To Mahi Hodges C.R.N.P
[2016-10-11] MEDS ORDERED: CPR500 PO (10:47)
[2016-10-11] MEDS ORDERED: FLUC100T4 PO (10:47)
[2016-11-08] MEDS ORDERED: CITA20TA4 PO (10:19)
[2016-11-08] MEDS ORDERED: QUET1TAB34 PO (10:19)
[2016-11-08] MEDS ORDERED: PRLSR20 PO (10:19)
[2016-11-08] MEDS ORDERED: OXYC-57 PO (10:19)
[2016-11-08] MEDS ORDERED: MELO15TA10 PO (10:19)
== END 2016-10-02 14:15 | disposition home or self-care (01) ==
LOC: C.EDB 16:10 → C.MSN 21:06 → ENRESERV 21:28
PROVIDERS: ADMIT Internal Medicine; ATTEND Hospitalist
DX: N20.1 Calculus of ureter (principal); K21.9 Gastro-esophageal reflux disease without esophagitis; F41.9 Anxiety disorder, unspecified; F32.9 Major depressive disorder, single episode, unspecified; Z95.0 Presence of cardiac pacemaker; F17.200 Nicotine dependence, unspecified, uncomplicated; Z79.899 Other long term (current) drug therapy

== ENCOUNTER 2016-10-09 14:40 | Inpatient (IN) | payer OTHER ==
[~2016-10-09] VITALS: Ht 160 cm; Wt 61.9 kg
[~2016-10-09 14:40] MED LIST changes: -CITA10TA4 PO; +CYCL5TAB PO; +ESCI1TAB10 PO; +NRV5 PO; +OXYC1TAB3 PO; -QUET1TAB34 PO; +SRQ/50 PO
[2016-10-09] MEDS ORDERED: KETOROLAC TROMETHAMINE 30 MG/ML VIAL IV STA (15:47)
[2016-10-09] MEDS ORDERED: SODIUM CHLORIDE 0.9% 1000ML 1,000 ML IV STA (15:47)
[2016-10-09] MEDS ORDERED: ONDANSETRON INJ 2 MG/ML 2 ML VIAL IV STA (15:47)
[2016-10-09 15:57] LABS: BASO % 0.4 %; BASO ABS # 0.02 K/uL (0-0.2); COMPLETE YES; EOS % 2.1 %; HEMATOCRIT 40.4 % (37-47); IG% 0.2 %; LYMPH % 35.6 %; LYMPH ABS # 2.02 K/uL (1.2-3.4); MEAN CELL VOLUME 87.6 fL (80-100); MEAN CORPUSCULAR HEMOGLOBIN 29.7 pg (25-34); MEAN CORPUSCULAR HGB CONC 33.9 g/dl (32-36); MEAN PLATELET VOLUME 9.9 fL (7.4-10.4); MONO % 9.2 %; NEUT % 52.5 %; PLATELET COUNT 275 K/uL (130-400); RED BLOOD COUNT 4.61 M/uL (4.2-5.4); WHITE BLOOD COUNT 5.67 K/uL (4.8-10.8)
[2016-10-09 16:12] LABS: BLOOD UREA NITROGEN 22 mg/dl (7-18); BUN/CREATININE RATIO 24.5 (10-20); CARBON DIOXIDE 27 mmol/L (21-32); CHLORIDE 106 mmol/L (98-107); CREATININE 0.91 mg/dl (0.60-1.20); GLUCOSE 73 mg/dl (70-99); POTASSIUM 3.8 mmol/L (3.5-5.1); SODIUM 139 mmol/L (136-145)
[2016-10-09 16:16] LABS: URINE APPEARANCE CLOUDY (CLEAR); URINE BILIRUBIN NEG (NEG); URINE COLOR YELLOW; URINE EPITHELIAL CELL AUTO >30 /lpf (0-5); URINE NITRITE NEG (NEG); URINE PH 6.5 (4.5-7.5); URINE SPECIFIC GRAVITY 1.023 (1.000-1.030); UROBILINOGEN NEG (NEG); ZZUR CULT IF INDIC CLEAN CATCH YES
[2016-10-09 16:18] LABS: MANUAL MICROSCOPIC REQUIRED? NO; REVIEW REQ? YES
[2016-10-09 16:59] LABS: URINE MUCUS PRESENT (NONE PRSENT)
[2016-10-09] MEDS ORDERED: CEFTRIAXONE SOD INJ 1 GM ADDVIAL IV STA (17:19)
--- NOTE | 2016-10-09 18:19 | EMERGENCY ROOM VISIT NOTE ---
History Report prepared by Marissa: Leonie Cortez Under the Supervision of: Dr. Venkata Lorenzo M.D. First contact with patient: 15:32 Chief Complaint: FLANK PAIN Stated Complaint: SEVERE LEG PAIN, STENT TAKEN OUT OF URETHRA TODAY History of Present Illness The patient is a 61 year old female who presents to the Emergency Room with complaints of worsening left flank pain starting earlier today. She currently rates her discomfort as a 10/10 in severity. The patient has a history of kidney stones. She had a lithotripsy 1 week ago and had a stent placed on the left side. The stent was removed this morning at the urology office. She was having the pain prior to having the stent removed, but the pain worsened after it was removed. She took an oxycodone to no significant relief. She was able to walk to her car and drive here. She reports leg pain, numbness, and nausea. She took Zofran at home to no significant relief. She often feels like she needs to urinate, but has difficulty urinating. She is unsure of hematuria. She has abdominal pain on the right side. She denies any diarrhea, constipation, fever, chills, cough, congestion, or dysuria. She goes to the pain clinic for lower back pain. She has a pacemaker in place. Source of History: patient Onset: earlier today Position: other (left flank) Symptom Intensity: 10/10 Quality: other (pain) Timing: worsening Associated Symptoms: + nausea, + numbness, No fevers, No chills, No cough, No diarrhea Note: Pt reports leg pain, needing to urinate. Pt denies dysuria, constipation, congestion. Review of Systems See HPI for pertinent positives and negatives. A total of ten systems were reviewed and were otherwise negative. Past Medical & Surgical Medical Problems: (1) Acute renal failure (2) Advance care planning (3) Anxiety and depression (4) Cardiac pacemaker (5) GERD (gastroesophageal reflux disease) (6) Gross hematuria (7) Hydronephrosis of left kidney (8) Low back pain (9) Renal colic on left side (10) Tobacco abuse counseling (11) UTI (urinary tract infection) Surgical Problems: (1) History of cholecystectomy (2) Tubal ligation status Family History Cancer Gallbladder disease Kidney disease Kidney stones Social History Smoking Status: Current Every Day Smoker Alcohol Use: none Drug Use: none Marital Status: single Occupation Status: disabled Current/Historical Medications Scheduled Amlodipine Besylate (Amlodipine Besylate), 5 MG PO QAM Escitalopram Oxalate (Lexapro), 20 MG PO DAILY Quetiapine Fumarate (Seroquel), 1 TAB PO HS Scheduled PRN Cyclobenzaprine Hcl (Flexeril), 5 MG PO Q8 PRN for Pain Ibuprofen (Ibuprofen), 400 MG PO Q8 PRN for Pain Naproxen (Aleve), 220-440 MG PO Q8 PRN for Pain Oxycodone Ir (Roxicodone Ir), 5 MG PO Q8 PRN for Severe Pain Allergies Coded Allergies: Morphine (Unverified Allergy, Severe, SHORTNESS OF BREATH, 09/29/16) Sulfa Antibiotics (Verified Allergy, Intermediate, ITCHY, 09/29/16) Sulfamethoxazole w/Trimethoprim (Verified Allergy, Intermediate, Itching, 09/29/16) Doxycycline (Verified Allergy, Mild, RED WELTS, 09/29/16) Codeine (Verified Allergy, Unknown, 09/29/16) Penicillins (Verified Allergy, Unknown, 09/29/16) Diphenhydramine (Unverified Adverse Reaction, Severe, UNKNOWN, 09/29/16) CANT TAKE HIGH DOSAGE. Chlorpromazine (Verified Adverse Reaction, Unknown, unknown, 09/29/16) Hydrocodone (Verified Adverse Reaction, Unknown, Vomiting, 09/29/16) Physical Exam Vital Signs Date Time Temp Pulse Resp B/P (MAP) Pulse Ox O2 Delivery O2 Flow Rate FiO2 10/09/16 18:32 87 20 152/100 98 Room Air 10/09/16 16:40 86 20 145/98 94 Room Air 10/09/16 14:45 36.7 105 20 151/85 94 Room Air Physical Exam GENERAL: Awake, alert, uncomfortable-appearing but in no acute distress HENT: Normocephalic, atraumatic. Mucous membranes dry. EYES: Normal conjunctiva. Sclera non-icteric. NECK: Supple. No nuchal rigidity. FROM. No JVD. RESPIRATORY: Clear to auscultation. CARDIAC: Regular rate, normal rhythm. Extremities warm and well perfused. Pulses equal. ABDOMEN: Soft, non-distended. mild RLQ and LLQ pain tenderness to palpation. No rebound or guarding. No masses. RECTAL: Deferred. MUSCULOSKELETAL: Chest examination reveals no tenderness. Mild left lumbar tenderness to palpation in the sciatic distribution. No joint edema. LOWER EXTREMITIES: Calves are equal size bilaterally and non-tender. No edema. No discoloration. NEURO: Positive straight leg raise on the left, otherwise neurologically intact , strength 5/5. SKIN: No rash or jaundice noted. Medical Decision & Procedures Laboratory Results 10/09/16 15:35 Red Blood Count 4.61, Mean Corpuscular Volume 87.6, Mean Corpuscular Hemoglobin 29.7, Mean Corpuscular Hemoglobin Concent 33.9, Mean Platelet Volume 9.9, Neutrophils (%) (Auto) 52.5, Lymphocytes (%) (Auto) 35.6, Monocytes (%) (Auto) 9.2, Eosinophils (%) (Auto) 2.1, Basophils (%) (Auto) 0.4, Neutrophils # (Auto) 2.98, Lymphocytes # (Auto) 2.02, Monocytes # (Auto) 0.52, Eosinophils # (Auto) 0.12, Basophils # (Auto) 0.02 10/09/16 15:35 Test 10/09/16 15:35 10/09/16 15:39 White Blood Count 5.67 K/uL (4.8-10.8) Red Blood Count 4.61 M/uL (4.2-5.4) Hemoglobin 13.7 g/dL (12.0-16.0) Hematocrit 40.4 % (37-47) Mean Corpuscular Volume 87.6 fL (80-100) Mean Corpuscular Hemoglobin 29.7 pg (25-34) Mean Corpuscular Hemoglobin Concent 33.9 g/dl (32-36) Platelet Count 275 K/uL (130-400) Mean Platelet Volume 9.9 fL (7.4-10.4) Neutrophils (%) (Auto) 52.5 % Lymphocytes (%) (Auto) 35.6 % Monocytes (%) (Auto) 9.2 % Eosinophils (%) (Auto) 2.1 % Basophils (%) (Auto) 0.4 % Neutrophils # (Auto) 2.98 K/uL (1.4-6.5) Lymphocytes # (Auto) 2.02 K/uL (1.2-3.4) Monocytes # (Auto) 0.52 K/uL (0.11-0.59) Eosinophils # (Auto) 0.12 K/uL (0-0.5) Basophils # (Auto) 0.02 K/uL (0-0.2) RDW Standard Deviation 43.1 fL (36.4-46.3) RDW Coefficient of Variation 13.4 % (11.5-14.5) Immature Granulocyte % (Auto) 0.2 % Immature Granulocyte # (Auto) 0.01 K/uL (0.00-0.02) Anion Gap 6.0 mmol/L (3-11) Estimated GFR () 80.0 Estimated GFR (Non- 69.1 BUN/Creatinine Ratio 24.5 (10-20) Calcium Level 9.0 mg/dl (8.5-10.1) Urine Color YELLOW Urine Appearance CLOUDY (CLEAR) Urine pH 6.5 (4.5-7.5) Urine Specific [place] 1.023 (1.000-1.030) Urine Protein 2+ (NEG) Urine Glucose (UA) NEG (NEG) Urine Ketones NEG (NEG) Urine Occult Blood 3+ (NEG) Urine Nitrite NEG (NEG) Urine Bilirubin NEG (NEG) Urine Urobilinogen NEG (NEG) Urine Leukocyte Esterase SMALL (NEG) Urine WBC (Auto) >30 /hpf (0-5) Urine RBC (Auto) >30 /hpf (0-4) Urine Hyaline Casts (Auto) 1-5 /lpf (0-5) Urine Epithelial Cells (Auto) >30 /lpf (0-5) Urine Bacteria (Auto) NEG (NEG) Urine Pathogenic Casts /lpf (0) Urine Mucus PRESENT (NONE PRSENT) Urine Yeast (Auto) BUDDING (NONE PRSENT) Laboratory results reviewed by me Medications Administered Medications (Trade) Dose Ordered Sig/Margaret Route Start Time Stop Time Status Last Admin Dose Admin Sodium Chloride 1,000 ml @ 999 mls/hr Q1H1M STAT IV 10/09/16 15:47 10/09/16 16:47 DC 10/09/16 16:24 999 MLS/HR Ketorolac Tromethamine (Toradol Inj) 30 mg NOW STAT IV 10/09/16 15:47 10/09/16 15:52 DC 10/09/16 16:24 30 MG Ondansetron HCl (Zofran Inj) 4 mg NOW STAT IV 10/09/16 15:47 10/09/16 15:52 DC 10/09/16 16:24 4 MG Ceftriaxone Sodium (Rocephin Inj) 1 gm NOW STAT IV 10/09/16 17:19 10/09/16 17:21 DC 10/09/16 18:29 1 GM ED Course 1536: The patient was evaluated in room C8. A complete history and physical exam was performed. 1547: Zofran Inj 4 mg IV, Toradol Inj 30 mg IV, NSS 1000 ml @ 999 mls/hr IV. 1719: Rocephin Inj 1 gm IV. Medical Decision I reviewed the patient's past medical history, medications, and the nursing notes as described above. Differential diagnosis: UTI, urinary obstruction, renal stone, chronic back pain , sciatica. Patient with past medical history of obstructive ureteral stone status post lithotripsy and stent removal today resents emergency department with worsening of her chronic low back left flank pain per history of present illness. On arrival appears mildly uncomfortable but in no acute distress. Afebrile with stable vital signs. On exam has mild tenderness palpation in the left flank left lower quadrant, suprapubic area, and right flank and right lower quadrant that is distractible. UA grossly positive with bacteria although epithelial cells present. WBC and creatinine within normal limits. Considering the patient's pain and positive UA history of renal stones and recent stent removal concern for possible retained renal stone or new urinary obstruction. CT scan ordered. Patient given ceftriaxone. CT scan demonstrated a 2 mm and 3 mm calcification associated left hydroureter nephrosis that appears new. These findings were discussed with urology will feel in the setting of the patient being afebrile, normal white count, and nontoxic-appearing are likely typical for post stent removal. However agree with plan for observation for pain control and urology will evaluate the patient in the morning. Admitted to hospital medicine. Medication Reconcilliation Current Medication List: was personally reviewed by me Impression Primary Impression: Urinary tract infection Additional Impression: Ureterolithiasis Scribe Attestation The scribe's documentation has been prepared under my direction and personally reviewed by me in its entirety. I confirm that the note above accurately reflects all work, treatment, procedures, and medical decision making performed by me. Departure Information Referrals Mahi Hodges C.R.N.P (PCP) Patient Instructions My [facility] Problem Qualifiers
[2016-10-09] MEDS ORDERED: OPTIRAY 320 IV PRN (18:30)
--- NOTE | 2016-10-09 18:34 | DIAGNOSTIC IMAGING REPORT ---
ABD/PELVIS IV CONTRAST ONLY CT DOSE: 299.35 mGy.cm HISTORY: Pain r/o infected renal stone/urinary obstruction TECHNIQUE: Multiaxial CT images of the abdomen and pelvis were performed following the use of intravenous contrast. A dose lowering technique was utilized adhering to the principles of ALARA. COMPARISON STUDY: 09/25/2016 FINDINGS: Lung bases remain clear. Liver spleen and pancreas are unremarkable. Prior cholecystectomy. Right kidney shows several microcysts as well as several nonobstructing calcifications. There is interval development of mild left hydronephrosis. There is slight wall postcontrast enhancement of the left ureter. As 1 and possibly 2 3 mm obstructing calcifications distal left ureter. There are several fragmented calcifications posterior aspect of the bladder on the left. The bowel pattern is considered nonobstructive. Bladder is midline. IMPRESSION: 1. 1 and possibly 2 small 3 mm obstructing calcifications distal left ureter. 2. Mild left hydroureteronephrosis.. 3. Slight uroepithelial enhancement of the left ureter raise the possibility of a superimposed component of urinary tract infection. 4. No evidence for abscess or collection. 5. Several small calcific fragments posterior aspect left bladder. 6. Remainder the study is unremarkable post cholecystectomy. The above report was generated using voice recognition software. It may contain grammatical, syntax or spelling errors. Electronically signed by: Kobi Dempsey M.D. 10/09/2016 6:32 PM Dictated Date/Time: 10/09/2016 6:27 PM
[2016-10-09] MEDS ORDERED: ALUMINUM/MAGNESIUM/SIMETH (MAALOX MAX) 30 ML UDC PO PRN (20:00)
[2016-10-09] MEDS ORDERED: MAGNESIUM HYDROXIDE SUSP 30 ML UDC PO PRN (20:00)
[2016-10-09] MEDS ORDERED: ACETAMINOPHEN 325 MG TAB PO PRN (20:00)
[2016-10-09] MEDS ORDERED: KETOROLAC TROMETHAMINE 30 MG/ML VIAL IV PRN (20:00)
[2016-10-09] MEDS ORDERED: ONDANSETRON INJ 2 MG/ML 2 ML VIAL IV PRN (20:00)
[2016-10-09] MEDS ORDERED: ZOLPIDEM TARTRATE 5 MG TAB PO PRN (20:00)
--- NOTE | 2016-10-09 20:14 | History and Physical ---
History & Physical Date & Time of Service: Oct 09, 2016 at 20:05 Chief Complaint: Severe Leg Pain, Stent Taken Out Of Urethra Today Primary Care Physician: Mahi Hodges C.R.N.P History of Present Illness Source: patient Ms Sorto is a 61 yo F with known kidney stones who presents with severe flank pain since 3pm today. She reports she came here Sunday with severe pain, and had lithotripsy with Dr Salomon. She had a stent placed which was removed today. She had severe pain before and after stent placement. She was nauseated as well, but has not vomited. She denies fevers at this time. She has been able to urinate but denies hematuria. She had some leg pain radiating from the back pain. She reports the pain medication has made her feel much better, but she is scared of discharge without further evaluation by Urology. Past Medical/Surgical History Medical Problems: (1) Anxiety and depression Status: Chronic (2) Cardiac pacemaker Status: Chronic (3) Gross hematuria Status: Resolved (4) Low back pain Status: Resolved (5) UTI (urinary tract infection) Status: Resolved Surgical Problems: (1) History of cholecystectomy Status: Chronic (2) Tubal ligation status Status: Chronic Family History Cancer Gallbladder disease Kidney disease Kidney stones Social History Smoking Status: Current Every Day Smoker (7 cigarettes / day) Drug Use: none Marital Status: single Housing status: lives with family Occupational Status: disabled Multi-Drug Resistant Organisms History of MDRO: No Allergies Coded Allergies: Morphine (Unverified Allergy, Severe, SHORTNESS OF BREATH, 09/29/16) Sulfa Antibiotics (Verified Allergy, Intermediate, ITCHY, 09/29/16) Sulfamethoxazole w/Trimethoprim (Verified Allergy, Intermediate, Itching, 09/29/16) Doxycycline (Verified Allergy, Mild, RED WELTS, 09/29/16) Codeine (Verified Allergy, Unknown, 09/29/16) Penicillins (Verified Allergy, Unknown, 09/29/16) Diphenhydramine (Unverified Adverse Reaction, Severe, UNKNOWN, 09/29/16) CANT TAKE HIGH DOSAGE. Chlorpromazine (Verified Adverse Reaction, Unknown, unknown, 09/29/16) Hydrocodone (Verified Adverse Reaction, Unknown, Vomiting, 09/29/16) Home Medications Scheduled Amlodipine Besylate (Amlodipine Besylate), 5 MG PO QAM Escitalopram Oxalate (Lexapro), 20 MG PO DAILY Quetiapine Fumarate (Seroquel), 1 TAB PO HS Scheduled PRN Cyclobenzaprine Hcl (Flexeril), 5 MG PO Q8 PRN for Pain Ibuprofen (Ibuprofen), 400 MG PO Q8 PRN for Pain Naproxen (Aleve), 220-440 MG PO Q8 PRN for Pain Oxycodone Ir (Roxicodone Ir), 5 MG PO Q8 PRN for Severe Pain Review of Systems See HPI for pertinent positives & negatives. A total of 10 systems reviewed and were otherwise negative. Physical Exam Vital Signs Date Time Temp Pulse Resp B/P (MAP) Pulse Ox O2 Delivery O2 Flow Rate FiO2 10/09/16 18:32 87 20 152/100 98 Room Air 10/09/16 16:40 86 20 145/98 94 Room Air 10/09/16 14:45 36.7 105 20 151/85 94 Room Air General Appearance: WD/WN, no apparent distress Head: normocephalic, atraumatic Eyes: normal inspection, PERRL ENT: hearing grossly normal Neck: supple, no JVD Respiratory/Chest: lungs clear, normal breath sounds, no respiratory distress Cardiovascular: regular rate, rhythm, no murmur, normal peripheral pulses Abdomen/GI: soft Back: + left CVA tenderness Extremities/Musculoskelatal: no calf tenderness, no pedal edema Neurologic/Psych: no motor/sensory deficits, alert Skin: no rash Diagnostics Laboratory Results Results Past 24 Hours Test 10/09/16 15:35 10/09/16 15:39 Range/Units White Blood Count 5.67 4.8-10.8 K/uL Red Blood Count 4.61 4.2-5.4 M/uL Hemoglobin 13.7 12.0-16.0 g/dL Hematocrit 40.4 37-47 % Mean Corpuscular Volume 87.6 80-100 fL Mean Corpuscular Hemoglobin 29.7 25-34 pg Mean Corpuscular Hemoglobin Concent 33.9 32-36 g/dl Platelet Count 275 130-400 K/uL Mean Platelet Volume 9.9 7.4-10.4 fL Neutrophils (%) (Auto) 52.5 % Lymphocytes (%) (Auto) 35.6 % Monocytes (%) (Auto) 9.2 % Eosinophils (%) (Auto) 2.1 % Basophils (%) (Auto) 0.4 % Neutrophils # (Auto) 2.98 1.4-6.5 K/uL Lymphocytes # (Auto) 2.02 1.2-3.4 K/uL Monocytes # (Auto) 0.52 0.11-0.59 K/uL Eosinophils # (Auto) 0.12 0-0.5 K/uL Basophils # (Auto) 0.02 0-0.2 K/uL RDW Standard Deviation 43.1 36.4-46.3 fL RDW Coefficient of Variation 13.4 11.5-14.5 % Immature Granulocyte % (Auto) 0.2 % Immature Granulocyte # (Auto) 0.01 0.00-0.02 K/uL Sodium Level 139 136-145 mmol/L Potassium Level 3.8 3.5-5.1 mmol/L Chloride Level 106 98-107 mmol/L Carbon Dioxide Level 27 21-32 mmol/L Anion Gap 6.0 3-11 mmol/L Blood Urea Nitrogen 22 7-18 mg/dl Creatinine 0.91 0.60-1.20 mg/dl Estimated GFR () 80.0 Estimated GFR (Non- 69.1 BUN/Creatinine Ratio 24.5 10-20 Random Glucose 73 70-99 mg/dl Calcium Level 9.0 8.5-10.1 mg/dl Urine Color YELLOW Urine Appearance CLOUDY CLEAR Urine pH 6.5 4.5-7.5 Urine Specific [place] 1.023 1.000-1.030 Urine Protein 2+ NEG Urine Glucose (UA) NEG NEG Urine Ketones NEG NEG Urine Occult Blood 3+ NEG Urine Nitrite NEG NEG Urine Bilirubin NEG NEG Urine Urobilinogen NEG NEG Urine Leukocyte Esterase SMALL NEG Urine WBC (Auto) >30 0-5 /hpf Urine RBC (Auto) >30 0-4 /hpf Urine Hyaline Casts (Auto) 1-5 0-5 /lpf Urine Epithelial Cells (Auto) >30 0-5 /lpf Urine Bacteria (Auto) NEG NEG Urine Pathogenic Casts 0 /lpf Urine Mucus PRESENT NONE PRSENT Urine Yeast (Auto) BUDDING NONE PRSENT Microbiology Results 10/09/16 Urine Culture, Received Pending Diagnostic Radiology ABD/PELVIS IV CONTRAST ONLY CT DOSE: 299.35 mGy.cm HISTORY: Pain r/o infected renal stone/urinary obstruction TECHNIQUE: Multiaxial CT images of the abdomen and pelvis were performed following the use of intravenous contrast. A dose lowering technique was utilized adhering to the principles of ALARA. COMPARISON STUDY: 09/25/2016 FINDINGS: Lung bases remain clear. Liver spleen and pancreas are unremarkable. Prior cholecystectomy. Right kidney shows several microcysts as well as several nonobstructing calcifications. There is interval development of mild left hydronephrosis. There is slight wall postcontrast enhancement of the left ureter. As 1 and possibly 2 3 mm obstructing calcifications distal left ureter. There are several fragmented calcifications posterior aspect of the bladder on the left. The bowel pattern is considered nonobstructive. Bladder is midline. IMPRESSION: 1. 1 and possibly 2 small 3 mm obstructing calcifications distal left ureter. 2. Mild left hydroureteronephrosis.. 3. Slight uroepithelial enhancement of the left ureter raise the possibility of a superimposed component of urinary tract infection. 4. No evidence for abscess or collection. 5. Several small calcific fragments posterior aspect left bladder. 6. Remainder the study is unremarkable post cholecystectomy. Impression Assessment and Plan 61 yo F with obstructing stones in distal L ureter causing mild hydroureteronephrosis, initially presenting for severe pain. Left kidney stones - Continue Toradol for pain - Urology aware, will see pt tomorrow AM - No evidence of sepsis at this point - pt has been afebrile, w/out a leukocytosis - IV fluids overnight, will provide Flomax as well - NPO after midnight Hypertension - Continue amlodipine Hx anxiety / depression - Continue Lexapro 20mg daily - Continue Seroquel VTE: SCDs DISPO: Med/Surg CODE STATUS: FULL Resident Physician Supervision Note: I was present with Dr Hurd during the history and exam. I discussed the case with the resident and agree with the findings and plan as documented in the note. Any exceptions or clarifications are listed here: 61 y/o F Hx HTN, renal calculi - recent stent - presents following removal of ureteral stent with intractable pain. OE AAO x 3 S1,2 R CTAB NT, ND No CCE P: Pain control, IVF, Urology consult Decision on additional imaging to discretion of urology pending AM eval Above discussed with pt and resident Documented By: Anson Poole Level of Care Med/Surg Resuscitation Status FULL RESUSCITATION VTE Prophylaxis VTE Risk Assessment Done? Y/N: Yes Risk Level: Moderate Given or contraindicated: SCD's Resident Tracking Resident Involvement: Resident Care Provided Care Provided: Adult Hospital Medicine
[2016-10-09] MEDS ORDERED: IV FLUIDS COMPLETED PRN (20:30)
[2016-10-09] MEDS: QUETIAPINE FUMARATE 25 MG TAB PO SCH (21:00)
[2016-10-09 21:10] VITALS: Ht 160 cm; Wt 61.9 kg
[2016-10-09 21:25] VITALS: BP 167/98; PULSE 84; TEMP 36.8; O2SAT 96
[2016-10-09] MEDS: SODIUM CHLOR 0.45% + 20MEQ KCL 1,000 ML IV SCH (22:14)
[2016-10-09 23:15] VITALS: BP 130/85; PULSE 82; TEMP 36.6; O2SAT 94
[2016-10-10] MEDS: SODIUM CHLOR 0.45% + 20MEQ KCL 1,000 ML IV SCH (05:32)
[2016-10-10] MEDS ORDERED: TAMSULOSIN HCL 0.4 MG CAP PO ONE (07:34)
[2016-10-10 07:41] VITALS: BP 148/94; PULSE 80; TEMP 36.7; O2SAT 94
--- NOTE | 2016-10-10 08:07 | Urology Consultation ---
History General Date of Service: Oct 10, 2016. Chief Complaint: left flank pain Primary Care Physician: Mahi Hodges C.R.N.P Pt seen a urologist before?: Yes (Dr. Salomon) If yes, why?: left ureteral stone History of Present Illness 61 yo female presents to [facility] with c/o severe left flank pain that started yesterday after around 3pm. She is s/p left URS/LL with Dr. Salomon on 10-01-16 for a left ureteral stone. Stent removed outpatient yesterday morning by Dr. Salomon. She reports she was not tolerating the stent well after insertion, but her pain became more severe yesterday afternoon after removal. CT scan shows some mild left hydro with a 3mm distal left ureteral stone fragment. Denies f/c. + nausea. Denies dysuria or hematuria. She is currently afebrile. White count and Cr are normal. UA showing hematuria, pyuria, and some budding yeast. She denies any vaginal symptoms. UC&S pending. Imaging Imaging: CT Laboratory Last 24 Hours Test 10/09/16 15:35 10/09/16 15:39 White Blood Count 5.67 K/uL Red Blood Count 4.61 M/uL Hemoglobin 13.7 g/dL Hematocrit 40.4 % Mean Corpuscular Volume 87.6 fL Mean Corpuscular Hemoglobin 29.7 pg Mean Corpuscular Hemoglobin Concent 33.9 g/dl Platelet Count 275 K/uL Mean Platelet Volume 9.9 fL Neutrophils (%) (Auto) 52.5 % Lymphocytes (%) (Auto) 35.6 % Monocytes (%) (Auto) 9.2 % Eosinophils (%) (Auto) 2.1 % Basophils (%) (Auto) 0.4 % Neutrophils # (Auto) 2.98 K/uL Lymphocytes # (Auto) 2.02 K/uL Monocytes # (Auto) 0.52 K/uL Eosinophils # (Auto) 0.12 K/uL Basophils # (Auto) 0.02 K/uL RDW Standard Deviation 43.1 fL RDW Coefficient of Variation 13.4 % Immature Granulocyte % (Auto) 0.2 % Immature Granulocyte # (Auto) 0.01 K/uL Sodium Level 139 mmol/L Potassium Level 3.8 mmol/L Chloride Level 106 mmol/L Carbon Dioxide Level 27 mmol/L Anion Gap 6.0 mmol/L Blood Urea Nitrogen 22 mg/dl Creatinine 0.91 mg/dl Estimated GFR () 80.0 Estimated GFR (Non- 69.1 BUN/Creatinine Ratio 24.5 Random Glucose 73 mg/dl Calcium Level 9.0 mg/dl Urine Color YELLOW Urine Appearance CLOUDY Urine pH 6.5 Urine Specific [place] 1.023 Urine Protein 2+ Urine Glucose (UA) NEG Urine Ketones NEG Urine Occult Blood 3+ Urine Nitrite NEG Urine Bilirubin NEG Urine Urobilinogen NEG Urine Leukocyte Esterase SMALL Urine WBC (Auto) >30 /hpf Urine RBC (Auto) >30 /hpf Urine Hyaline Casts (Auto) 1-5 /lpf Urine Epithelial Cells (Auto) >30 /lpf Urine Bacteria (Auto) NEG Urine Pathogenic Casts /lpf Urine Mucus PRESENT Urine Yeast (Auto) BUDDING Problem List Medical Problems: (1) Anxiety and depression Status: Chronic (2) Cardiac pacemaker Status: Chronic (3) Flank pain Status: Acute (4) Low back pain Status: Acute (5) Radiculopathy, thoracolumbar region Status: Acute (6) Renal colic Status: Acute (7) Ureterolithiasis Status: Acute (8) Urinary tract infection Status: Acute Surgical Problems: (1) History of cholecystectomy Status: Chronic (2) Tubal ligation status Status: Chronic Past History anxiety, bipolar disorder, depression, high cholesterol, kidney stones, other ( bradycardia) Past Surgical History: cholecystectomy, colonoscopy, hysterectomy, lithotripsy , pacemaker, tubal ligation, ureteral stent Family History Cancer Gallbladder disease Kidney disease Kidney stones Social History Hx Tobacco Use In Past Year?: Yes Smoking: less than 1 pack/day (7 cigarettes per day) Alcohol: never Drug use: none Marital status: single Housing status: lives with family Occupation status: disabled History of MDRO No Allergies Coded Allergies: Morphine (Unverified Allergy, Severe, SHORTNESS OF BREATH, 09/29/16) Sulfa Antibiotics (Verified Allergy, Intermediate, ITCHY, 09/29/16) Sulfamethoxazole w/Trimethoprim (Verified Allergy, Intermediate, Itching, 09/29/16) Doxycycline (Verified Allergy, Mild, RED WELTS, 09/29/16) Codeine (Verified Allergy, Unknown, 09/29/16) Penicillins (Verified Allergy, Unknown, 09/29/16) Diphenhydramine (Unverified Adverse Reaction, Severe, UNKNOWN, 09/29/16) CANT TAKE HIGH DOSAGE. Chlorpromazine (Verified Adverse Reaction, Unknown, unknown, 09/29/16) Hydrocodone (Verified Adverse Reaction, Unknown, Vomiting, 09/29/16) Medications Home Medications: Home Meds and Scripts Medications Dose Route/Sig Max Daily Dose Days Date Category Dose Instructions Amlodipine Besylate 5 Mg Tab 5 Mg PO QAM 30 10/02/16 Rx Roxicodone Ir (Oxycodone HCl) 5 Mg Tab 5 Mg PO Q8 PRN 09/29/16 Reported Seroquel (Quetiapine Fumarate) 50 Mg Tab 1 Tab PO HS 09/29/16 Reported Flexeril (Cyclobenzaprine Hcl) 5 Mg Tab 5 Mg PO Q8 PRN 09/29/16 Reported PRN Lexapro (Escitalopram Oxalate) 20 Mg Tab 20 Mg PO DAILY 09/29/16 Reported Aleve (Naproxen) 220 Mg Tab 220-440 Mg PO Q8 PRN 06/13/16 Reported Ibuprofen 200 Mg Cap 400 Mg PO Q8 PRN 06/13/16 Reported Inpatient Medications: Current Inpatient Medications Medications (Trade) Dose Ordered Sig/Margaret Route Start Time Stop Time Status Last Admin Dose Admin Ioversol (Optiray 320) 92 ml UD PRN IV 10/09/16 18:30 10/13/16 18:29 Acetaminophen (Tylenol Tab) 650 mg Q4H PRN PO 10/09/16 20:00 11/08/16 19:59 Al Hydrox/Mg Hydrox/Simethicone (Maalox Max Susp) 15 ml Q4H PRN PO 10/09/16 20:00 11/08/16 19:59 Magnesium Hydroxide (Milk Of Magnesia Susp) 30 ml Q6H PRN PO 10/09/16 20:00 11/08/16 19:59 Zolpidem Tartrate (Ambien Tab) 5 mg HSZ PRN PO 10/09/16 20:00 11/08/16 19:59 Ondansetron HCl (Zofran Inj) 4 mg Q6H PRN IV 10/09/16 20:00 11/08/16 19:59 Amlodipine Besylate (Norvasc Tab) 5 mg QAM PO 10/10/16 09:00 11/09/16 08:59 Escitalopram Oxalate (Lexapro Tab) 20 mg DAILY PO 10/10/16 09:00 11/09/16 08:59 Quetiapine Fumarate (seroQUEL TAB) 50 mg HS PO 10/09/16 21:00 11/08/16 20:59 Ketorolac Tromethamine (Toradol Inj) 30 mg Q6H PRN IV 10/09/16 20:00 10/14/16 19:59 Potassium Chloride/Sodium Chloride 1,000 ml @ 125 mls/hr Q8H IV 10/09/16 22:00 10/10/16 13:59 10/10/16 05:32 125 MLS/HR Miscellaneous (Iv Fluids Completed) 1 ea PRN PRN N/A 10/09/16 20:30 10/09/17 20:29 Ciprofloxacin/ Dextrose 400 mg/ Prmx 200 ml @ 100 mls/hr Q12 IV 10/10/16 09:00 10/20/16 08:59 UNV Fluconazole (Diflucan Tab) 100 mg BID PO 10/10/16 09:00 10/20/16 08:59 UNV Tamsulosin HCl (Flomax Cap) 0.4 mg HS PO 10/10/16 21:00 11/09/16 20:59 UNV Tamsulosin HCl (Flomax Cap) 0.4 mg 0734 ONCE PO 10/10/16 07:34 10/10/16 07:35 UNV Review of Systems Review of Systems Constitutional: No fever, No chills Eyes: No double vision Neurological: No dizzy Endocrine: No excessive thirst Gastrointestinal: + abdominal pain (LLQ and flank ), + nausea, No vomiting Cardiovascular: No chest pain Respiratory: No shortness of breath Skin: No rash Musculoskeletal: + back pain (left low back ) Female : + kidney stones, No painful urination, No blood in urine Physical Exam Vital Signs: Vital Signs Past 12 Hours Date Time Temp Pulse Resp B/P (MAP) Pulse Ox O2 Delivery O2 Flow Rate FiO2 10/10/16 07:41 36.7 80 16 148/94 (112) 94 Room Air 10/09/16 23:15 36.6 82 16 130/85 (100) 94 Room Air 10/09/16 23:15 Room Air 10/09/16 21:25 36.8 84 18 167/98 (121) 96 Room Air 10/09/16 21:10 Room Air 10/09/16 21:01 63 20 145/88 96 Room Air 10/09/16 20:14 80 20 156/91 94 Room Air Physical Exam: General Appearance: no apparent distress Eyes: bilateral eyes normal inspection ENT: hearing grossly normal Neck: no JVD Respiratory/Chest: no respiratory distress, no accessory muscle use Cardiovascular: no JVD Extremities: normal inspection Neurologic/Psychiatric: alert, normal mood/affect, oriented x 3 Skin: normal color Assessment & Plan Assessment & Plan A/P: 3mm distal left ureteral stone with renal colic and mild left hydronephrosis AFVSS. Residual left ureteral stone fragment causing renal colic. No evidence of sepsis at this time, but ? UTI based on UA. Budding yeast somewhat concerning for fungal UTI. Will start her on IV Cipro and Diflucan until culture results return. Will avoid stent placement for now unless she develops fever or renal failure as she has not tolerated stents well in the past. Recommend a trial of passage with MET. Supportive management with IVF, pain control, and Flomax. Encourage fluids today. Will make her NPO after midnight in the event a stent placement is needed tomorrow. Will check labs and a KUB in the AM. Strain all urine. Thanks for the consult. Will continue to follow along with primary service.
[2016-10-10] MEDS: ESCITALOPRAM OXALATE 20 MG TAB PO SCH (08:53)
[2016-10-10] MEDS: AMLODIPINE BESYLATE 5 MG TAB PO SCH (08:54)
[2016-10-10 10:43] VITALS: O2SAT 94
[2016-10-10] MEDS: CIPROFLOXACIN / D5W 400 MG in PREMIXED IN D5W 200 ML IV SCH ×2 (11:30→20:58)
[2016-10-10] MEDS: FLUCONAZOLE 100 MG TAB PO SCH ×2 (12:44→20:59)
[2016-10-10 14:54] VITALS: BP 147/90; PULSE 78; TEMP 36.5; O2SAT 93
[2016-10-10] MEDS: QUETIAPINE FUMARATE 25 MG TAB PO SCH (21:00)
[2016-10-10] MEDS ORDERED: TAMSULOSIN HCL 0.4 MG CAP PO SCH (21:00)
[2016-10-10 22:46] VITALS: BP 145/85; PULSE 71; TEMP 36.7; O2SAT 95
--- NOTE | 2016-10-10 23:54 | Hospitalist Progress Note ---
Hospitalist Progress Note Date of Service Oct 10, 2016. Subjective Pt evaluation today including: conversation w/ patient Pt reports feeling somewhat better but now pain starting to return in left flank , but not as bad. She is passing some gravel. No N/V, afebrile Respiratory: No shortness of breath Cardiovascular: No chest pain All Other Systems: Reviewed and Negative Objective Vital Signs Date Time Temp Pulse Resp B/P (MAP) Pulse Ox O2 Delivery O2 Flow Rate FiO2 10/10/16 22:46 36.7 71 18 145/85 (105) 95 Room Air 10/10/16 15:45 Room Air 10/10/16 14:54 36.5 78 16 147/90 (109) 93 10/10/16 10:43 94 Room Air 10/10/16 07:41 36.7 80 16 148/94 (112) 94 Room Air 10/10/16 07:30 Room Air Physical Exam General Appearance: WD/WN, no apparent distress Eyes: normal inspection, sclerae normal ENT: hearing grossly normal, pharynx normal Neck: trachea midline Respiratory/Chest: lungs clear, normal breath sounds, no respiratory distress, no accessory muscle use Cardiovascular: regular rate, rhythm, no edema, no gallop, no murmur Abdomen: normal bowel sounds, non tender, soft, no organomegaly (and no CVA tenderness) Extremities: non-tender, normal inspection, no pedal edema, no calf tenderness Neurologic/Psychiatric: alert, normal mood/affect, oriented x 3 Skin: normal color, warm/dry, no rash Assessment and Plan 61 yo F with obstructing stones in distal L ureter causing mild hydroureteronephrosis after just having left ureteral stent removed the day of admission, presenting for severe left flank pain. Left ureterolithiasis with mild left hydronephrosis, possible UTI - Continue Toradol prn for pain - Urology consultation appreciated-plan for expulsive therapy and NPO after midnight in case of need for repeat ureteral stent - No evidence of sepsis at this point - pt has been afebrile, w/out a leukocytosis - continue IV fluids -continue Flomax -repeat KUB in the AM -continue Cipro and Diflucan as had abnl UA with budding yeast -follow Ur cx - NPO after midnight Hypertension-stable, fairly well controlled - Continue amlodipine Hx anxiety / depression-stable - Continue Lexapro 20mg daily - Continue Seroquel VTE: SCDs DISPO: Med/Surg CODE STATUS: FULL
[2016-10-11 06:22] LABS: BASO % 0.7 %; BASO ABS # 0.03 K/uL (0-0.2); COMPLETE YES; EOS % 5.1 %; HEMATOCRIT 36.2 % (37-47); IG% 0.2 %; LYMPH % 29.5 %; LYMPH ABS # 1.32 K/uL (1.2-3.4); MEAN CELL VOLUME 86.4 fL (80-100); MEAN CORPUSCULAR HEMOGLOBIN 28.9 pg (25-34); MEAN CORPUSCULAR HGB CONC 33.4 g/dl (32-36); MEAN PLATELET VOLUME 9.4 fL (7.4-10.4); MONO % 9.8 %; NEUT % 54.7 %; PLATELET COUNT 242 K/uL (130-400); RED BLOOD COUNT 4.19 M/uL (4.2-5.4); WHITE BLOOD COUNT 4.47 K/uL (4.8-10.8)
[2016-10-11 07:00] LABS: BUN/CREATININE RATIO 12.6 (10-20); CALCIUM 8.9 mg/dl (8.5-10.1); CREATININE 0.85 mg/dl (0.60-1.20); POTASSIUM 4.1 mmol/L (3.5-5.1)
--- NOTE | 2016-10-11 07:18 | DIAGNOSTIC IMAGING REPORT ---
KUB CLINICAL HISTORY: distal left ureteral stone COMPARISON STUDY: 09/10/2016 FINDINGS: There is no pathologic bowel dilatation. There are surgical clips in the right upper quadrant consistent with a prior cholecystectomy. There are clustered lower pole right renal calculi measuring 3 mm in aggregate. There is a punctate lower pole left renal calculus. There are multiple pelvic basin calcifications. A 9 mm calcification visualized the prior study is no longer visualized. This suggests interval passage of a distal left ureteral calculus. IMPRESSION: 1. Suspected interval passage of the dominant distal left ureteral calculus. 2. Bilateral nephrolithiasis Electronically signed by: Jose Enrique Wang M.D. 10/11/2016 7:16 AM Dictated Date/Time: 10/11/2016 7:14 AM
--- NOTE | 2016-10-11 07:34 | Progress Note ---
Subjective Date of Service: Oct 11, 2016. Subjective Pt evaluation today including: conversation w/ patient, chart review, lab review Voiding: no voiding problems 61 yo female with distal left ureteral stone fragments. Pt reports passing some gravel yesterday, and feels better since passage. Denies pain this morning. Denies n/v. Denies dysuria or hematuria. KUB reviewed this morning. Appears left ureteral stone fragments have passed. Pelvic basin calcifications noted. UC&S pending. Pin point growth noted at this time. Problem List Medical Problems: (1) Anxiety and depression Status: Chronic (2) Cardiac pacemaker Status: Chronic (3) Flank pain Status: Acute (4) Low back pain Status: Acute (5) Radiculopathy, thoracolumbar region Status: Acute (6) Renal colic Status: Acute (7) Ureterolithiasis Status: Acute (8) Urinary tract infection Status: Acute Surgical Problems: (1) History of cholecystectomy Status: Chronic (2) Tubal ligation status Status: Chronic Review of Systems Constitutional: No fever, No chills Respiratory: No shortness of breath Cardiac: No chest pain Abdomen: No pain, No nausea, No vomiting Female : No dysuria, No hematuria Heme: No abnormal bleeding/bruising Objective Vital Signs Date Time Temp Pulse Resp B/P (MAP) Pulse Ox O2 Delivery O2 Flow Rate FiO2 10/10/16 23:10 Room Air 10/10/16 22:46 36.7 71 18 145/85 (105) 95 Room Air 10/10/16 15:45 Room Air 10/10/16 14:54 36.5 78 16 147/90 (109) 93 10/10/16 10:43 94 Room Air 10/10/16 07:41 36.7 80 16 148/94 (112) 94 Room Air 10/10/16 07:30 Room Air Physical Exam General Appearance: no apparent distress Eyes: normal inspection ENT: hearing grossly normal Neck: no JVD Respiratory/Chest: no respiratory distress, no accessory muscle use Cardiovascular: no JVD Extremities: normal inspection Neurologic/Psychiatric: alert, normal mood/affect, oriented x 3 Skin: normal color Laboratory Results Last 24 Hours Test 10/10/16 08:37 10/11/16 06:10 White Blood Count 4.47 K/uL Red Blood Count 4.19 M/uL Hemoglobin 12.1 g/dL Hematocrit 36.2 % Mean Corpuscular Volume 86.4 fL Mean Corpuscular Hemoglobin 28.9 pg Mean Corpuscular Hemoglobin Concent 33.4 g/dl Platelet Count 242 K/uL Mean Platelet Volume 9.4 fL Neutrophils (%) (Auto) 54.7 % Lymphocytes (%) (Auto) 29.5 % Monocytes (%) (Auto) 9.8 % Eosinophils (%) (Auto) 5.1 % Basophils (%) (Auto) 0.7 % Neutrophils # (Auto) 2.44 K/uL Lymphocytes # (Auto) 1.32 K/uL Monocytes # (Auto) 0.44 K/uL Eosinophils # (Auto) 0.23 K/uL Basophils # (Auto) 0.03 K/uL RDW Standard Deviation 41.6 fL RDW Coefficient of Variation 13.1 % Immature Granulocyte % (Auto) 0.2 % Immature Granulocyte # (Auto) 0.01 K/uL Sodium Level 139 mmol/L Potassium Level 4.1 mmol/L Chloride Level 108 mmol/L Carbon Dioxide Level 26 mmol/L Anion Gap 5.0 mmol/L Blood Urea Nitrogen 11 mg/dl Creatinine 0.85 mg/dl Est Creatinine Clear Calc Drug Dose 58.9 ml/min Estimated GFR () 86.9 Estimated GFR (Non- 75.0 BUN/Creatinine Ratio 12.6 Random Glucose 98 mg/dl Calcium Level 8.9 mg/dl Assessment and Plan A/P: Left ureteral stone fragments AFVSS. Stone fragments presumed passed based on KUB, improvement in pain, and pt's report of passing fragments yesterday. No OR intervention needed at this time. Pt OK for d/c home from perspective. Recommend d/c home on 3 days of Cipro and Diflucan pending culture sensitivities. F/u as an outpatient with me in 3 weeks. Will arrange for outpatient f/u. Discharge planning: home
[2016-10-11 07:46] VITALS: BP 124/88; PULSE 84; TEMP 36.3; O2SAT 96
[2016-10-11 07:56] VITALS: O2SAT 96
[2016-10-11] MEDS: AMLODIPINE BESYLATE 5 MG TAB PO SCH (09:37)
[2016-10-11] MEDS: ESCITALOPRAM OXALATE 20 MG TAB PO SCH (09:37)
[2016-10-11] MEDS: FLUCONAZOLE 100 MG TAB PO SCH (09:38)
[2016-10-11] MEDS: CIPROFLOXACIN / D5W 400 MG in PREMIXED IN D5W 200 ML IV SCH (09:38)
[2016-10-11] MEDS ORDERED: FLUC100T4 PO (10:47)
[2016-10-11] MEDS ORDERED: CPR500 PO (10:47)
--- NOTE | 2016-10-11 10:51 | Discharge Instructions ---
Discharge Instructions Date of Service Oct 11, 2016. Admission Reason for Admission: Ureterolithiasis Discharge Discharge Diagnosis / Problem: Ureterolithiasis Discharge Goals Goal(s): Improve disease control, Diagnostic testing, Therapeutic intervention Activity Recommendations Activity Limitations: resume your previous activity Lifting Limitations: none Exercise/Sports Limitations: none Shower/Bathe: no limitations . Instructions / Follow-Up Instructions / Follow-Up You were admitted with a left sided small kidney stone that passed on its own while you were here. You were treated for a UTI and should finish out the course of Cipro and Diflucan for 3 more days. Please follow up with your PCP within 1-2 weeks and Urology in 3 weeks. Current Hospital Diet Patient's current hospital diet: Regular Diet Discharge Diet Recommended Diet: Regular Diet Procedures Procedures Performed: CT abdomen/pelvis Abdominal xray Pending Studies Studies pending at discharge: yes List of pending studies: Final Urine Culture result Medical Emergencies . Who to Call and When: Medical Emergencies: If at any time you feel your situation is an emergency, please call 911 immediately. . Non-Emergent Contact Non-Emergency issues call your: Primary Care Provider Call Non-Emergent contact if: you have a fever, your pain is not controlled, your pain is worsening, your pain is unusual for you, your pain is concerning you, you have any medication questions . . "Provider Documentation" section prepared by Chikis Cid. . VTE Core Measure Inpt VTE Proph given/why not?: SCD's
[2016-10-11 11:58] VITALS: BP 124/88; PULSE 84; TEMP 36.3; O2SAT 96
--- NOTE | 2016-10-12 00:06 | Discharge Summary ---
Discharge Summary Date of Service Oct 11, 2016. Discharge Summary Admission Date: Oct 10, 2016 at 23:49 Discharge Date: Oct 11, 2016 Discharge Disposition: Home Principal Diagnosis: Left ureterolithiasis with hydronephrosis, UTI Problems/Secondary Diagnoses: Anxiety and depression Cardiac pacemaker for bradycardia and syncope History of cholecystectomy Tubal ligation status Hypertension Procedures: CT abd/pel KUB Consultations: Urology Medication Reconciliation New Medications: Ciprofloxacin (Ciprofloxacin HCl) 500 Mg Tab 500 MG PO BID for 3 Days, #6 TAB Fluconazole (Diflucan) 100 Mg Tab 1 TAB PO DAILY for 3 Days, #3 TAB Continued Medications: Amlodipine Besylate (Amlodipine Besylate) 5 Mg Tab 5 MG PO QAM for 30 Days, #30 TAB Cyclobenzaprine Hcl (Flexeril) 5 Mg Tab 5 MG PO Q8 PRN for Pain, TAB PRN Escitalopram Oxalate (Lexapro) 20 Mg Tab 20 MG PO DAILY, TAB Naproxen (Aleve) 220 Mg Tab 220-440 MG PO Q8 PRN for Pain, TAB Quetiapine Fumarate (Seroquel) 50 Mg Tab 1 TAB PO HS, TAB Discontinued Medications: Ibuprofen (Ibuprofen) 200 Mg Cap 400 MG PO Q8 PRN for Pain Oxycodone Ir (Roxicodone Ir) 5 Mg Tab 5 MG PO Q8 PRN for Severe Pain, TAB Referrals At Discharge Follow up Referrals: Physician Referral - Within 1-2 Weeks with Mahi Hodges C.R.N.P Urologist Referral - Within a Month with Vipin Salomon M.D. Discharge Exam Feeling very well, no pain at all. Afebrile, no urinary complaints. SHe passed fragments of stones in her urine since admission Review of Systems: Constitutional: No fever, No chills Eyes: No problem reported ENT: No problem reported Respiratory: No shortness of breath Abdomen: No pain, No nausea, No vomiting Musculoskeletal: No problem reported Genitourinary - Female: No problem reported Neurologic: No problem reported Psychiatric: + anxiety Endocrine: No problem reported Hematologic / Lymphatic: No problem reported Integumentary: No problem reported Physical Exam: General Appearance: WD/WN, no apparent distress Eyes: normal inspection, sclerae normal ENT: hearing grossly normal, pharynx normal Neck: trachea midline Respiratory/Chest: lungs clear, normal breath sounds, no respiratory distress, no accessory muscle use Cardiovascular: regular rate, rhythm, no edema, no gallop, no murmur, normal peripheral pulses Abdomen / GI: normal bowel sounds, non tender, soft (and no CVA tenderness) , no organomegaly, no pulsatile mass Extremities: normal inspection, no calf tenderness, no pedal edema Neurologic/Psychiatric: alert, normal mood/affect, oriented x 3 Skin: normal color, warm/dry, no rash Hospital Course 61 yo F with obstructing stones in distal L ureter causing mild hydroureteronephrosis after just having left ureteral stent removed the day of admission, presenting for severe left flank pain. Left ureterolithiasis with mild left hydronephrosis, possible UTI - received Toradol prn for pain, aggressive IVFs, Flomax - Urology consultation appreciated - No evidence of sepsis at this point - pt has been afebrile, w/out a leukocytosis -Passed stone fragments overnight and became pain free -repeat KUB showed passage of stones -continue Cipro and Diflucan as had abnl UA with budding yeast -follow Ur culture as an outpat -finish out 3 more days of Cipro and Diflucan Hypertension-stable, fairly well controlled - Continue amlodipine Hx anxiety / depression-stable - Continue Lexapro 20mg daily - Continue Seroquel Total Time Spent: Greater than 30 minutes This includes examination of the patient, discharge planning, medication reconciliation, and communication with other providers. Discharge Instructions Please refer to the electronic Patient Visit Report (Discharge Instructions) for additional information. Follow-Up PCP within 1-2 weeks Urology in 3 weeks Additional Copies To Mahi Hodges C.R.N.P
[2016-11-08] MEDS ORDERED: MELO15TA10 PO (10:19)
[2016-11-08] MEDS ORDERED: QUET1TAB34 PO (10:19)
[2016-11-08] MEDS ORDERED: PRLSR20 PO (10:19)
[2016-11-08] MEDS ORDERED: CITA20TA4 PO (10:19)
[2016-11-08] MEDS ORDERED: OXYC-57 PO (10:19)
== END 2016-10-11 12:30 | disposition home or self-care (01) | DRG 690 ==
LOC: C.EDC 15:57 → C.MSW 20:04 → ENRESERV 20:25 → OBSVTOIN 10-10 23:49
PROVIDERS: ADMIT Internal Medicine; ATTEND Family Medicine
DX: N39.0 Urinary tract infection, site not specified (principal); N13.2 Hydronephrosis with renal and ureteral calculous obstruction; Z95.0 Presence of cardiac pacemaker; K21.9 Gastro-esophageal reflux disease without esophagitis; F17.200 Nicotine dependence, unspecified, uncomplicated; Z88.0 Allergy status to penicillin; Z88.2 Allergy status to sulfonamides; F41.8 Other specified anxiety disorders; I10 Essential (primary) hypertension

== ENCOUNTER → 2016-11-01 | Outpatient (CLI) | payer OTHER ==
[~2016-11-01] MED LIST changes: +CITA20TA4 PO; +CPR500 PO; -IBUP1CAP9 PO; +MELO15TA10 PO; +OXYC-57 PO; -OXYC1TAB3 PO; +PRLSR20 PO; +QUET1TAB34 PO
--- NOTE | 2016-11-01 17:03 | DIAGNOSTIC IMAGING REPORT ---
KUB CLINICAL HISTORY: Kidney stone. Microhematuria. COMPARISON STUDY: CT of the abdomen and pelvis October 09, 2016 and KUB October 11, 2016. FINDINGS: A 4 mm calculus within the lower pole of the right kidney is unchanged. There is a punctate left renal calculus. Pelvic calcifications are unchanged and likely reflect phleboliths. No ureteral calculi are identified by radiography. Bowel gas pattern is normal. There are cholecystectomy clips. IMPRESSION: 1. 4 mm right renal calculus and punctate left renal calculus. 2. No ureteral calculi identified. Electronically signed by: Zach Mancia M.D. 11/01/2016 5:01 PM Dictated Date/Time: 11/01/2016 4:58 PM
== END | disposition home or self-care (01) ==
LOC: C.RAD 16:14
PROVIDERS: ATTEND Nurse Practitioner Adult Health
DX: N20.0 Calculus of kidney (principal); R31.29 Other microscopic hematuria

== ENCOUNTER → 2016-11-06 | Outpatient (CLI) | payer OTHER ==
[2016-11-06 14:58] LABS: BASO % 0.4 %; BASO ABS # 0.02 K/uL (0-0.2); COMPLETE YES; EOS % 3.4 %; HEMATOCRIT 36.4 % (37-47); IG% 0.2 %; LYMPH % 38.6 %; LYMPH ABS # 1.83 K/uL (1.2-3.4); MEAN CELL VOLUME 85.6 fL (80-100); MEAN CORPUSCULAR HEMOGLOBIN 29.2 pg (25-34); MEAN CORPUSCULAR HGB CONC 34.1 g/dl (32-36); MEAN PLATELET VOLUME 9.8 fL (7.4-10.4); MONO % 6.8 %; NEUT % 50.6 %; PLATELET COUNT 231 K/uL (130-400); RED BLOOD COUNT 4.25 M/uL (4.2-5.4); WHITE BLOOD COUNT 4.74 K/uL (4.8-10.8)
[2016-11-06 15:01] LABS: URINE APPEARANCE CLEAR (CLEAR); URINE BILIRUBIN NEG (NEG); URINE COLOR YELLOW; URINE EPITHELIAL CELL AUTO >30 /lpf (0-5); URINE NITRITE NEG (NEG); URINE PH 6.5 (4.5-7.5); URINE SPECIFIC GRAVITY 1.015 (1.000-1.030); UROBILINOGEN NEG (NEG)
[2016-11-06 15:03] LABS: MANUAL MICROSCOPIC REQUIRED? NO; REVIEW REQ? NO
[2016-11-06 15:19] LABS: BLOOD UREA NITROGEN 13 mg/dl (7-18); BUN/CREATININE RATIO 18.3 (10-20); CALCIUM 8.9 mg/dl (8.5-10.1); CARBON DIOXIDE 26 mmol/L (21-32); CHLORIDE 106 mmol/L (98-107); CREATININE 0.72 mg/dl (0.60-1.20); GLUCOSE 78 mg/dl (70-99); POTASSIUM 3.8 mmol/L (3.5-5.1); SODIUM 138 mmol/L (136-145)
== END | disposition home or self-care (01) ==
LOC: C.RAD 13:04
PROVIDERS: ATTEND Nurse Practitioner Adult Health
DX: N20.0 Calculus of kidney (principal)

== ENCOUNTER → 2016-11-20 | Outpatient (CLI) | payer OTHER ==
[~2016-11-20] MED LIST changes: -CPR500 PO; -ESCI1TAB10 PO; -NAPR1TAB9 PO; -NRV5 PO; -SRQ/50 PO
[2016-11-20 15:45] LABS: BASO % 0.2 %; BASO ABS # 0.02 K/uL (0-0.2); COMPLETE YES; EOS % 0.4 %; IG% 0.3 %; LYMPH % 33.6 %; LYMPH ABS # 3.38 K/uL (1.2-3.4); MEAN CELL VOLUME 85.9 fL (80-100); MEAN CORPUSCULAR HEMOGLOBIN 30.3 pg (25-34); MEAN CORPUSCULAR HGB CONC 35.2 g/dl (32-36); MEAN PLATELET VOLUME 9.8 fL (7.4-10.4); MONO % 7.1 %; NEUT % 58.4 %; PLATELET COUNT 295 K/uL (130-400); RED BLOOD COUNT 4.89 M/uL (4.2-5.4); WHITE BLOOD COUNT 10.07 K/uL (4.8-10.8)
--- NOTE | 2016-11-20 15:46 | DIAGNOSTIC IMAGING REPORT ---
CHEST 2 VIEWS ROUTINE CLINICAL HISTORY: J20.9 Acute bronchitis with bronchospasm COMPARISON STUDY: 08/30/2015 FINDINGS: The cardiac and mediastinal contours are normal. There is no evidence of focal pulmonary consolidation. There is no evidence of failure. No pleural effusions are visualized.[ There is a left subclavian dual-chamber central venous pacemaker, unchanged in position. IMPRESSION: No active disease in the chest. Electronically signed by: Jose Enrique Wang M.D. 11/20/2016 3:45 PM Dictated Date/Time: 11/20/2016 3:45 PM
[2016-11-20 16:10] LABS: ALT/SGPT 15 U/L (12-78); AST/SGOT 6 U/L (15-37); BLOOD UREA NITROGEN 17 mg/dl (7-18); BUN/CREATININE RATIO 19.9 (10-20); CARBON DIOXIDE 29 mmol/L (21-32); CHLORIDE 104 mmol/L (98-107); CREATININE 0.88 mg/dl (0.60-1.20); GLUCOSE 87 mg/dl (70-99); POTASSIUM 3.7 mmol/L (3.5-5.1); SODIUM 139 mmol/L (136-145)
[2016-11-20 16:13] LABS: ALKALINE PHOSPHATASE 138 U/L (45-117)
== END | disposition home or self-care (01) ==
LOC: C.RAD 14:47
PROVIDERS: ATTEND Nurse Practitioner
DX: J20.9 Acute bronchitis, unspecified (principal)

== ENCOUNTER → 2017-01-03 | Outpatient (CLI) | payer OTHER ==
[2017-01-03 18:15] LABS: BASO % 0.4 %; BASO ABS # 0.03 K/uL (0-0.2); COMPLETE YES; EOS % 2.6 %; HEMATOCRIT 40.1 % (37-47); IG% 0.3 %; LYMPH % 30.3 %; LYMPH ABS # 2.24 K/uL (1.2-3.4); MEAN CELL VOLUME 85.3 fL (80-100); MEAN CORPUSCULAR HEMOGLOBIN 28.7 pg (25-34); MEAN CORPUSCULAR HGB CONC 33.7 g/dl (32-36); MEAN PLATELET VOLUME 9.7 fL (7.4-10.4); MONO % 7.6 %; NEUT % 58.8 %; PLATELET COUNT 294 K/uL (130-400); WHITE BLOOD COUNT 7.39 K/uL (4.8-10.8)
--- NOTE | 2017-01-03 18:15 | DIAGNOSTIC IMAGING REPORT ---
KUB HISTORY: Follow-up study in a patient with history of nephrolithiasis. N20.0 Kidney stone COMPARISON: KUB 11/01/2016, CT 10/09/2016. FINDINGS: The bowel gas pattern is non-obstructive. There is no organomegaly. Bilateral nephrolithiasis again seen, largest of which includes a 4 mm calculus within the region of the inferior pole right kidney. No ureteral calculi identified. Phleboliths of the pelvis. No pneumoperitoneum or pneumatosis. No fracture. Cholecystectomy clips of the upper abdomen. Partially imaged pacer wire over the region of the right ventricle. IMPRESSION: 1. Unchanged appearance of bilateral nephrolithiasis 2. No ureteral calculi identified. Electronically signed by: Delbert Gtz M.D. 01/03/2017 6:13 PM Dictated Date/Time: 01/03/2017 6:10 PM
[2017-01-03 18:33] LABS: URINE APPEARANCE CLEAR (CLEAR); URINE BILIRUBIN NEG (NEG); URINE COLOR YELLOW; URINE EPITHELIAL CELL AUTO >30 /lpf (0-5); URINE NITRITE NEG (NEG); URINE PH 6.5 (4.5-7.5); URINE SPECIFIC GRAVITY 1.015 (1.000-1.030); UROBILINOGEN NEG (NEG)
[2017-01-03 18:36] LABS: BLOOD UREA NITROGEN 11 mg/dl (7-18); BUN/CREATININE RATIO 14.7 (10-20); CALCIUM 9.1 mg/dl (8.5-10.1); CARBON DIOXIDE 26 mmol/L (21-32); CHLORIDE 106 mmol/L (98-107); CREATININE 0.75 mg/dl (0.60-1.20); GLUCOSE 88 mg/dl (70-99); MANUAL MICROSCOPIC REQUIRED? NO; POTASSIUM 3.6 mmol/L (3.5-5.1); REVIEW REQ? YES; SODIUM 140 mmol/L (136-145)
== END | disposition home or self-care (01) ==
LOC: C.RAD 17:10
PROVIDERS: ATTEND Nurse Practitioner Adult Health
DX: N20.0 Calculus of kidney (principal)

== ENCOUNTER → 2017-01-12 | Day surgery (SDC) | payer OTHER ==
[2017-01-08 10:25] VITALS: Ht 158.8 cm; Wt 60.0 kg
[~2017-01-12] VITALS: Ht 158.8 cm; Wt 60.0 kg
[~2017-01-12] MED LIST changes: +CIPROFLOXACIN 400MG / D5W IV SCH; -CYCL5TAB PO; +LACTATED RINGER'S 1000ML 1,000 ML IV SCH; +LORA-741 PO; -MELO15TA10 PO; -OXYC-57 PO
== END | disposition home or self-care (01) ==
LOC: EDSTATUS 09:45 → C.PAT 11:30
PROVIDERS: ATTEND Urology
DX: N20.0 Calculus of kidney (principal)

== ENCOUNTER 2017-03-08 10:29 | Emergency (ER) | payer OTHER ==
[~2017-03-08] VITALS: Ht 157.5 cm; Wt 63.0 kg
[~2017-03-08 10:29] MED LIST changes: -CIPROFLOXACIN 400MG / D5W IV SCH; -LACTATED RINGER'S 1000ML 1,000 ML IV SCH; -LORA-741 PO
[2017-03-08 10:32] VITALS: TEMP 36.7; Ht 157.5 cm; Wt 63.0 kg
[2017-03-08] MEDS ORDERED: SODIUM CHLORIDE 0.9% 500ML 500 ML IV STA (11:00)
--- NOTE | 2017-03-08 11:08 | EMERGENCY ROOM VISIT NOTE ---
History Report prepared by Marissa: Oscar Dai Under the Supervision of: Dr. Imani Murillo D.O. First contact with patient: 10:42 Chief Complaint: KIDNEY STONE Stated Complaint: KIDNEY STONES History of Present Illness The patient is a 62 year old female who presents to the Emergency Room with complaints of worsening bilateral lower abdominal pain that began prior to arrival. She adds that she has associated symptoms of a headache. She adds that she was "feeling achy" for a couple of days that has resolved since coming to the ED. Patient states her urine has been darker, but denies any hematuria. In addition, patient denies any fevers or chills. Patient states that the symptoms feel similar to previous kidney stones, except for not having back pain. She states that she took ibuprofen prior to arrival that did not resolve the symptoms. She adds that she has passed 3 kidney stones in the past 2 years. She states she has always been able to pass them. Patient adds she has a lithotripsy appointment scheduled in 2 weeks. Patient states that she takes medication for intermittent acid reflux. She adds that she is currently a smoker. Source of History: patient Onset: Prior to arrival Position: abdomen Associated Symptoms: + headache, + urinary symptoms (Darker urine), No fevers, No chills, No back pain Note: Patient adds she has acid reflux. She denies hematuria. Review of Systems See HPI for pertinent positives & negatives. A total of 10 systems reviewed and were otherwise negative. Past Medical & Surgical Medical Problems: (1) Acute renal failure (2) Advance care planning (3) Anxiety and depression (4) Cardiac pacemaker (5) Flank pain (6) GERD (gastroesophageal reflux disease) (7) Gross hematuria (8) Hydronephrosis of left kidney (9) Low back pain (10) Renal colic (11) Renal colic on left side (12) Tobacco abuse counseling (13) UTI (urinary tract infection) Surgical Problems: (1) History of cholecystectomy (2) Tubal ligation status Family History Cancer Gallbladder disease Kidney disease Kidney stones Social History Smoking Status: Current Every Day Smoker Alcohol Use: none Drug Use: none Marital Status: single Occupation Status: disabled Current/Historical Medications Scheduled Citalopram Hydrobromide (Citalopram Hydrobromide), 1 TAB PO QAM Omeprazole (Prilosec), 20 MG PO QAM Quetiapine Fumarate (Seroquel), 100 MG PO HS Scheduled PRN Lorazepam (Ativan), 0.5 MG PO TID PRN for Anxiety/Insomnia Allergies Coded Allergies: Morphine (Unverified Allergy, Severe, SHORTNESS OF BREATH, 03/08/17) Sulfa Antibiotics (Verified Allergy, Intermediate, ITCHY, 03/08/17) Sulfamethoxazole w/Trimethoprim (Verified Allergy, Intermediate, Itching, 03/08/17) Doxycycline (Verified Allergy, Mild, RED WELTS, 03/08/17) Codeine (Verified Allergy, Unknown, VOMITTING, 03/08/17) Penicillins (Verified Allergy, Unknown, VOMITTING, 03/08/17) Hydrocodone (Verified Adverse Reaction, Unknown, Vomiting, 03/08/17) Physical Exam Vital Signs Date Time Temp Pulse Resp B/P (MAP) Pulse Ox O2 Delivery O2 Flow Rate FiO2 03/08/17 14:12 86 20 139/92 96 03/08/17 12:40 84 20 144/105 94 Room Air 03/08/17 11:51 84 20 126/96 96 Room Air 03/08/17 10:32 36.7 103 20 152/93 95 Room Air Physical Exam GENERAL: alert, well appearing, well nourished, no distress, non-toxic EYE EXAM: normal conjunctiva, PERRL and EOM's grossly intact OROPHARYNX: no exudate, no erythema, lips, buccal mucosa, and tongue normal and mucous membranes are moist NECK: supple, no nuchal rigidity, no adenopathy, non-tender LUNGS: Clear to auscultation. Normal chest wall mechanics HEART: no murmurs, S1 normal and S2 normal ABDOMEN: Mild suprapubic discomfort, abdomen soft, normo-active bowel sounds, no masses, no rebound or guarding. BACK: Back is symmetrical on inspection and there is no deformity, no midline tenderness, no CVA tenderness. SKIN: no rashes and no bruising UPPER EXTREMITIES: upper extremities are grossly normal. LOWER EXTREMITIES: No pitting edema. NEURO EXAM: Normal sensorium, cranial nerves II-XII grossly intact, normal speech, no gross weakness of arms, no gross weakness of legs. Medical Decision & Procedures ER Provider Diagnostic Interpretation: Radiology results have been interpreted by the radiologist and reviewed by me. KUB CLINICAL HISTORY: hx stones, lower abd pain pain COMPARISON STUDY: 01/03/2017 FINDINGS: Nonobstructive bowel pattern. Mild increase in fecal load throughout the colon. Bilateral nephrocalcinosis is essentially unchanged from the prior study within limitations of overlying colonic material. Multiple pelvic vascular calcifications are unchanged. IMPRESSION: 1. Bilateral nephrocalcinosis most likely unchanged from the prior study. 2. Nonobstructive bowel pattern. 3. Mild increase in fecal load throughout the entire colon suggestive of mild fecal stasis The above report was generated using voice recognition software. It may contain grammatical, syntax or spelling errors. Electronically signed by: Kobi Dempsey M.D. 03/08/2017 11:51 AM RENAL ULTRASOUND CLINICAL HISTORY: Kidney stones. COMPARISON STUDY: CT of the abdomen and pelvis October 09, 2016 and KUB October 09, 2016. TECHNIQUE: Sonography of the kidneys and the urinary bladder was performed. FINDINGS: The right kidney measures 9.9 x 4.5 x 4.1 cm and the left kidney measures 9.4 x 6.4 x 5.6 cm. Is no right hydronephrosis. There is mild left collecting system dilatation. Bilateral renal calculi are noted. These measure up to approximately 8 mm. Both ureteral jets were identified. IMPRESSION: 1. Mild left collecting system dilatation. No right hydronephrosis. 2. Bilateral nephrolithiasis. Electronically signed by: Zach Mancia M.D. 03/08/2017 12:37 PM Laboratory Results 03/08/17 11:10 Red Blood Count 4.49, Mean Corpuscular Volume 82.9, Mean Corpuscular Hemoglobin 28.5, Mean Corpuscular Hemoglobin Concent 34.4, Mean Platelet Volume 9.5, Neutrophils (%) (Auto) 67.6, Lymphocytes (%) (Auto) 22.1, Monocytes (%) (Auto) 6.1, Eosinophils (%) (Auto) 3.5, Basophils (%) (Auto) 0.5, Neutrophils # (Auto) 4.09, Lymphocytes # (Auto) 1.34, Monocytes # (Auto) 0.37, Eosinophils # (Auto) 0.21, Basophils # (Auto) 0.03 03/08/17 11:10 Test 03/08/17 11:05 03/08/17 11:10 Urine Color YELLOW Urine Appearance CLEAR (CLEAR) Urine pH 7.5 (4.5-7.5) Urine Specific Reading 1.015 (1.000-1.030) Urine Protein NEG (NEG) Urine Glucose (UA) NEG (NEG) Urine Ketones NEG (NEG) Urine Occult Blood NEG (NEG) Urine Nitrite NEG (NEG) Urine Bilirubin NEG (NEG) Urine Urobilinogen NEG (NEG) Urine Leukocyte Esterase TRACE (NEG) Urine WBC (Auto) 5-10 /hpf (0-5) Urine RBC (Auto) 0-4 /hpf (0-4) Urine Hyaline Casts (Auto) 5-10 /lpf (0-5) Urine Epithelial Cells (Auto) >30 /lpf (0-5) Urine Bacteria (Auto) NEG (NEG) White Blood Count 6.05 K/uL (4.8-10.8) Red Blood Count 4.49 M/uL (4.2-5.4) Hemoglobin 12.8 g/dL (12.0-16.0) Hematocrit 37.2 % (37-47) Mean Corpuscular Volume 82.9 fL (80-100) Mean Corpuscular Hemoglobin 28.5 pg (25-34) Mean Corpuscular Hemoglobin Concent 34.4 g/dl (32-36) Platelet Count 254 K/uL (130-400) Mean Platelet Volume 9.5 fL (7.4-10.4) Neutrophils (%) (Auto) 67.6 % Lymphocytes (%) (Auto) 22.1 % Monocytes (%) (Auto) 6.1 % Eosinophils (%) (Auto) 3.5 % Basophils (%) (Auto) 0.5 % Neutrophils # (Auto) 4.09 K/uL (1.4-6.5) Lymphocytes # (Auto) 1.34 K/uL (1.2-3.4) Monocytes # (Auto) 0.37 K/uL (0.11-0.59) Eosinophils # (Auto) 0.21 K/uL (0-0.5) Basophils # (Auto) 0.03 K/uL (0-0.2) RDW Standard Deviation 40.9 fL (36.4-46.3) RDW Coefficient of Variation 13.5 % (11.5-14.5) Immature Granulocyte % (Auto) 0.2 % Immature Granulocyte # (Auto) 0.01 K/uL (0.00-0.02) Prothrombin Time 9.7 SECONDS (9.0-12.0) Prothromb Time International Ratio 0.9 (0.9-1.1) Anion Gap 3.0 mmol/L (3-11) Est Creatinine Clear Calc Drug Dose 64.4 ml/min Estimated GFR () 91.5 Estimated GFR (Non- 78.9 BUN/Creatinine Ratio 12.5 (10-20) Lactic Acid Level 1.3 mmol/L (0.4-2.0) Calcium Level 9.0 mg/dl (8.5-10.1) Total Bilirubin 0.3 mg/dl (0.2-1) Aspartate Amino Transf (AST/SGOT) 25 U/L (15-37) Alanine Aminotransferase (ALT/SGPT) 34 U/L (12-78) Alkaline Phosphatase 167 U/L (45-117) Total Protein 7.3 gm/dl (6.4-8.2) Albumin 3.5 gm/dl (3.4-5.0) Globulin 3.8 gm/dl (2.5-4.0) Albumin/Globulin Ratio 0.9 (0.9-2) Laboratory results per my review. Medications Administered Medications (Trade) Dose Ordered Sig/Margaret Route Start Time Stop Time Status Last Admin Dose Admin Sodium Chloride 500 ml @ 999 mls/hr Q31M STAT IV 03/08/17 11:00 03/08/17 11:30 DC 03/08/17 11:20 999 MLS/HR Magnesium Hydroxide (Milk Of Magnesia Susp) 30 ml NOW ONCE PO 03/08/17 12:45 03/08/17 12:46 DC 03/08/17 12:38 30 ML ECG Indication: abdominal pain Rate (beats per minute): 87 Rhythm: sinus rhythm Findings: no acute ischemic change, no ectopy, other (Normal axis. Normal interval) ED Course 1100: The patient was evaluated in room C3. A complete history and physical exam was performed. 1130: Sodium Chloride 500 ml @ 999 mls/hr IV 1245: Magnesium Hydroxide 30ml PO 1318: Upon reevaluation, the patient is feeling better. I discussed the findings and the treatment plan with the patient. She verbalizes agreement and understanding. She was discharged home. Medical Decision Differential diagnosis: Etiologies such as appendicitis, diverticulitis, PUD, biliary pathology, UTI, pancreatitis, obstruction, mesenteric ischemia, aortic pathology, infections, inflammatory bowel disease, renal colic, as well as others were entertained. Patient's pain suprapubic and not into back or flank has had previously been with kidney stones. Intrarenal stones noted on ultrasound, no other evidence of ureterolithiasis on ultrasound or KUB. Suggestion of possible constipation noted on KUB. Labs otherwise reassuring, no hematuria, no UTI. Vital signs stable, no evidence of bacteremia/sepsis. Discussed all results with patient. Opted for KUB and ultrasound are not repeat CT as she has already had 2 CAT scans of the abdomen and pelvis done within the last 6 months. Patient was agreeable with plan. Discussed this patient continued outpatient treatment of intrarenal stones, symptoms to watch and return for, she verbalized understanding was agreeable with plan. Doubt other occult acute GI pathology, doubt vascular etiology. Medication Reconcilliation Current Medication List: was personally reviewed by me Blood Pressure Screening Patient's blood pressure: Normal blood pressure Blood pressure disposition: Did not require urgent referral Impression Primary Impression: Lower abdominal pain Additional Impression: Constipation Scribe Attestation The scribe's documentation has been prepared under my direction and personally reviewed by me in its entirety. I confirm that the note above accurately reflects all work, treatment, procedures, and medical decision making performed by me. Departure Information Dispostion Home / Self-Care Forms HOME CARE DOCUMENTATION FORM, IMPORTANT VISIT INFORMATION Patient Instructions Constipation, My [facility] Additional Instructions Please drink plenty of water and continue to monitor your pain for any changes. If you have any worsening pain, develop back pain, vomiting, fevers or chills , dizziness, or you have any other new concerns, please return the emergency room. Please follow up with your family doctor as a precaution. Please continue to monitor for any changes in your bowel movements. Problem Qualifiers Additional Impression: Constipation Constipation type: unspecified constipation type Qualified Codes: K59.00 - Constipation, unspecified
[2017-03-08] MEDS ORDERED: LORA-741 PO (11:15)
[2017-03-08 11:27] LABS: BASO % 0.5 %; BASO ABS # 0.03 K/uL (0-0.2); EOS % 3.5 %; EOS ABS # 0.21 K/uL (0-0.5); HEMATOCRIT 37.2 % (37-47); HEMOGLOBIN 12.8 g/dL (12.0-16.0); IG# 0.01 K/uL (0.00-0.02); LYMPH % 22.1 %; LYMPH ABS # 1.34 K/uL (1.2-3.4); MEAN CELL VOLUME 82.9 fL (80-100); MEAN CORPUSCULAR HEMOGLOBIN 28.5 pg (25-34); MEAN CORPUSCULAR HGB CONC 34.4 g/dl (32-36); MEAN PLATELET VOLUME 9.5 fL (7.4-10.4); MONO % 6.1 %; MONO ABS # 0.37 K/uL (0.11-0.59); NEUT % 67.6 %; NEUT ABS # 4.09 K/uL (1.4-6.5); PLATELET COUNT 254 K/uL (130-400); RED CELL DISTRIBUTION WIDTH CV 13.5 % (11.5-14.5); RED CELL DISTRIBUTION WIDTH SD 40.9 fL (36.4-46.3); WHITE BLOOD COUNT 6.05 K/uL (4.8-10.8)
[2017-03-08 11:36] LABS: INR 0.9 (0.9-1.1)
[2017-03-08 11:45] LABS: ALBUMIN 3.5 gm/dl (3.4-5.0); CREATININE 0.81 mg/dl (0.60-1.20); POTASSIUM 3.7 mmol/L (3.5-5.1)
[2017-03-08 11:48] LABS: TOTAL PROTEIN 7.3 gm/dl (6.4-8.2)
--- NOTE | 2017-03-08 11:52 | DIAGNOSTIC IMAGING REPORT ---
KUB CLINICAL HISTORY: hx stones, lower abd pain pain COMPARISON STUDY: 01/03/2017 FINDINGS: Nonobstructive bowel pattern. Mild increase in fecal load throughout the colon. Bilateral nephrocalcinosis is essentially unchanged from the prior study within limitations of overlying colonic material. Multiple pelvic vascular calcifications are unchanged. IMPRESSION: 1. Bilateral nephrocalcinosis most likely unchanged from the prior study. 2. Nonobstructive bowel pattern. 3. Mild increase in fecal load throughout the entire colon suggestive of mild fecal stasis The above report was generated using voice recognition software. It may contain grammatical, syntax or spelling errors. Electronically signed by: Kobi Dempsey M.D. 03/08/2017 11:51 AM Dictated Date/Time: 03/08/2017 11:49 AM
--- NOTE | 2017-03-08 12:39 | DIAGNOSTIC IMAGING REPORT ---
RENAL ULTRASOUND CLINICAL HISTORY: Kidney stones. COMPARISON STUDY: CT of the abdomen and pelvis October 09, 2016 and KUB October 09, 2016. TECHNIQUE: Sonography of the kidneys and the urinary bladder was performed. FINDINGS: The right kidney measures 9.9 x 4.5 x 4.1 cm and the left kidney measures 9.4 x 6.4 x 5.6 cm. Is no right hydronephrosis. There is mild left collecting system dilatation. Bilateral renal calculi are noted. These measure up to approximately 8 mm. Both ureteral jets were identified. IMPRESSION: 1. Mild left collecting system dilatation. No right hydronephrosis. 2. Bilateral nephrolithiasis. Electronically signed by: Zach Mancia M.D. 03/08/2017 12:37 PM Dictated Date/Time: 03/08/2017 12:36 PM
[2017-03-08] MEDS ORDERED: MAGNESIUM HYDROXIDE SUSP 30 ML UDC PO ONE (12:45)
[2017-03-08 14:12] VITALS: BP 139/92; PULSE 86; O2SAT 96
[2017-04-03] MEDS ORDERED: VLM2 PO (13:23)
[2017-04-03] MEDS ORDERED: ESCI1TAB10 PO (13:23)
[2017-04-03] MEDS ORDERED: SUCR1TAB29 PO (13:23)
[2017-04-03] MEDS ORDERED: GABA-112 PO (13:23)
[2017-04-03] MEDS ORDERED: CYCL5TAB PO (13:23)
[2017-04-06] MEDS ORDERED: PHEN-775 PO (11:06)
[2017-04-06] MEDS ORDERED: OXYC7.5T65 PO (11:06)
[2017-08-23] MEDS ORDERED: DOXE10CA PO (16:37)
[2017-08-23] MEDS ORDERED: ALPR-411 PO (16:37)
[2017-08-23] MEDS ORDERED: PARO1TAB29 PO (16:37)
[2017-08-23] MEDS ORDERED: LITH300T2 PO (16:37)
[2017-08-23] MEDS ORDERED: PRAZ1CAP28 PO (16:37)
[2017-09-02] MEDS ORDERED: LURA40TA PO (04:47)
[2017-09-25] MEDS ORDERED: AMLO10TA3 PO (13:23)
[2017-09-25] MEDS ORDERED: ABL/15 PO (19:13)
[2017-09-25] MEDS ORDERED: ABL/5 PO (19:16)
[2017-09-25] MEDS ORDERED: QUET1TAB30 PO (19:20)
[2017-09-25] MEDS ORDERED: QUET1TAB32 PO (19:20)
[2017-09-25] MEDS ORDERED: PRAZ1CAP10 PO (19:24)
[2017-09-25] MEDS ORDERED: PARO1TAB29 PO (19:24)
== END 2017-03-08 14:13 | disposition home or self-care (01) ==
LOC: C.EDB 10:31 → C.EDC 14:13
DX: R10.30 Lower abdominal pain, unspecified (principal); K59.00 Constipation, unspecified; F41.8 Other specified anxiety disorders; K21.9 Gastro-esophageal reflux disease without esophagitis; Z95.0 Presence of cardiac pacemaker; Z87.440 Personal history of urinary (tract) infections; Z79.899 Other long term (current) drug therapy; F17.200 Nicotine dependence, unspecified, uncomplicated; Z88.0 Allergy status to penicillin; Z88.2 Allergy status to sulfonamides; Z88.5 Allergy status to narcotic agent; Z88.8 Allergy status to other drugs, medicaments and biological substances; Z80.9 Family history of malignant neoplasm, unspecified; Z83.79 Family history of other diseases of the digestive system; Z84.1 Family history of disorders of kidney and ureter

== ENCOUNTER → 2017-03-20 | Outpatient (CLI) | payer OTHER ==
[~2017-03-20] MED LIST changes: +LORA-741 PO
== END | disposition home or self-care (01) ==
LOC: C.PATHSPEC 07:39
PROVIDERS: ATTEND Podiatrist Primary Podiatric Medicine
DX: M67.471 Ganglion, right ankle and foot (principal)

== ENCOUNTER → 2017-04-06 | Outpatient (CLI) | payer OTHER ==
[~2017-04-06] MED LIST changes: +AMLO-114 PO; -CITA20TA4 PO; +CYCL5TAB PO; +ESCI1TAB10 PO; +GABA-112 PO; -LORA-741 PO; +OXYC7.5T65 PO; +PHEN-775 PO; +SUCR1TAB29 PO; +VLM2 PO
--- NOTE | 2017-04-06 09:58 | DIAGNOSTIC IMAGING REPORT ---
KUB CLINICAL HISTORY: N20.0 Kidney [id number] nephrocalcinosis COMPARISON STUDY: 03/23/2017 FINDINGS: Bilateral nephrocalcinosis similar to prior exams. Multiple pelvic vascular calcifications. Nonobstructive bowel pattern. IMPRESSION: Stable bilateral nephrocalcinosis. The above report was generated using voice recognition software. It may contain grammatical, syntax or spelling errors. Electronically signed by: Kobi Dempsey M.D. 04/06/2017 9:57 AM Dictated Date/Time: 04/06/2017 9:54 AM
== END | disposition home or self-care (01) ==
LOC: C.RAD1850 09:44
PROVIDERS: ATTEND Urology
DX: N20.0 Calculus of kidney (principal)

== ENCOUNTER → 2017-04-06 | Day surgery (SDC) | payer OTHER ==
--- NOTE | 2017-03-23 12:27 | DIAGNOSTIC IMAGING REPORT ---
KUB CLINICAL HISTORY: N20.0 Kidney [id number] COMPARISON STUDY: 03/08/2017 FINDINGS: There is no pathologic bowel dilatation. Punctate calcifications project over each kidney consistent with calculi. There are pelvic basin calcifications which remain similar and therefore likely represent phleboliths. IMPRESSION: 1. Persistent bilateral nephrolithiasis 2. No evidence of pathologic bowel dilatation Electronically signed by: Jose Enrique Wang M.D. 03/23/2017 12:26 PM Dictated Date/Time: 03/23/2017 12:25 PM
[2017-03-23 12:35] LABS: BASO % 0.2 %; BASO ABS # 0.01 K/uL (0-0.2); EOS % 3.5 %; EOS ABS # 0.17 K/uL (0-0.5); HEMATOCRIT 40.9 % (37-47); HEMOGLOBIN 13.6 g/dL (12.0-16.0); IG# 0.01 K/uL (0.00-0.02); LYMPH % 33.3 %; LYMPH ABS # 1.63 K/uL (1.2-3.4); MEAN CELL VOLUME 84.3 fL (80-100); MEAN CORPUSCULAR HGB CONC 33.3 g/dl (32-36); MONO % 6.3 %; MONO ABS # 0.31 K/uL (0.11-0.59); NEUT % 56.5 %; NEUT ABS # 2.76 K/uL (1.4-6.5); PLATELET COUNT 321 K/uL (130-400); RED CELL DISTRIBUTION WIDTH CV 13.9 % (11.5-14.5); RED CELL DISTRIBUTION WIDTH SD 42.7 fL (36.4-46.3); WHITE BLOOD COUNT 4.89 K/uL (4.8-10.8)
[2017-03-23 13:23] LABS: BLOOD UREA NITROGEN 11 mg/dl (7-18); CALCIUM 9.3 mg/dl (8.5-10.1); CARBON DIOXIDE 26 mmol/L (21-32); CREATININE 0.73 mg/dl (0.60-1.20); GLUCOSE 95 mg/dl (70-99); POTASSIUM 4.2 mmol/L (3.5-5.1); SODIUM 136 mmol/L (136-145)
[2017-04-03 13:25] VITALS: Ht 158.8 cm; Wt 62.3 kg
[~2017-04-06] VITALS: Ht 158.8 cm; Wt 62.3 kg
[~2017-04-06] MED LIST changes: +ATROPINE SULFATE 0.1 MG/ML 5ML SYR IV PRN; +CIPROFLOXACIN 400MG / D5W IV SCH; +DEXAMETHASONE SOD INJ 4 MG/ML VIAL IV PRN; +DEXAMETHASONE SOD INJ 4 MG/ML VIAL ONE; +EpHEDrine SULFATE INJ 50 MG/ML AMP IV PRN; +FENTANYL CITRATE INJ 50 MCG/1 ML 2 ML VIAL IV PRN; +FENTANYL CITRATE INJ 50 MCG/1 ML 2 ML VIAL ONE; +KETOROLAC TROMETHAMINE 30 MG/ML VIAL IV. PRN; +KETOROLAC TROMETHAMINE 30 MG/ML VIAL ONE; +LABETALOL HCL IV 5 MG/ML 20ML IV PRN; +LACTATED RINGER'S 1000ML 1,000 ML IV SCH; +LIDOCAINE HCL 2% 2 ML VIAL (20MG/ML) ONE; +METOCLOPRAMIDE HCL INJ 5 MG/ML 2 ML VIAL IV PRN; +MIDAZOLAM HCL 1 MG/ML 2ML VIAL ONE; +ONDANSETRON INJ 2 MG/ML 2 ML VIAL IV PRN; +ONDANSETRON INJ 2 MG/ML 2 ML VIAL ONE; +OXYCODONE/ACETAMINOPHEN 7.5-325 TAB PO PRN; +PHENYLEPHRINE 100MCG/ML 5ML SYR IV PRN; +PROPOFOL IV EMULSION 10 MG/ML 20 ML VIAL IV ONE
--- NOTE | 2017-04-06 11:02 | History & Physical Bridge - SC ---
H&P Re-Evaluation Bridge Note: I have examined the patient, reviewed the History & Physical and in the interval since the performance of the History & Physical I have noted the following changes of clinical significance: No changes noted Right Lower Pole 4 mm stone.
--- NOTE | 2017-04-06 11:08 | Discharge Instructions ---
Discharge Instructions Date of Service Apr 06, 2017. Admission Reason for Admission: Kidney Stones Discharge Discharge Diagnosis / Problem: Right Stone Discharge Goals Goal(s): Decrease discomfort, Improve function Activity Recommendations Activity Limitations: resume your previous activity Lifting Limitations: gradually increase as tolerated Exercise/Sports Limitations: as tolerated Shower/Bathe: no limitations . Instructions / Follow-Up Instructions / Follow-Up May have blood in urine> May pass small fragments or clots. May have bruising or flank pain. Call if any fevers or other issues. Current Hospital Diet Patient's current hospital diet: Discharge Diet Recommended Diet: Regular Diet Procedures Procedures Performed: R ESWL Pending Studies Studies pending at discharge: no Medical Emergencies . Who to Call and When: Medical Emergencies: If at any time you feel your situation is an emergency, please call 911 immediately. . Non-Emergent Contact Non-Emergency issues call your: Primary Care Provider, Urologist Call Non-Emergent contact if: you have a fever, temperature is above 101, temperature is above 101.5, your pain is not controlled, your pain is worsening . . "Provider Documentation" section prepared by Jose Manuel Carbajal,. . VTE Core Measure Inpt VTE Proph given/why not?: SCD's
--- NOTE | 2017-04-06 14:07 | [facility] Operative Report ---
Operative Report Operative Date Apr 06, 2017. Pre-Operative Diagnosis R Stone Renal Post-Operative Diagnosis Same Procedure(s) Performed R ESWL Surgeon Solomon Dramatic Reader Surgeon(s) None Estimated Blood Loss None Findings Right stone lower pole of kidney. Patient has pacemaker making it necessary to use gated shocks. Specimens None Anesthesia General Complication(s) None Disposition Recovery Room / PACU Indications Right Stone with symptoms. Risks and benefits discussed at length. Description of Procedure Patient was consented and brought back to the operating room. Patient was placed under anesthesia in the supine position. Patient was prepped and draped in the regular sterile fashion. A time out was completed. With the time out completed, The patient was assessed with fluoroscopy. The stone was identified and position was triangulated. At this point, the shock waves commenced. The stone was monitored throughout the process with fluoroscopy to assess progression and maintain position. The stone was pulverized with 2500 shocks to the large right stone at a maximum voltage of 4 with a total fluoroscopic time of 2:01. The shocks had to be gated due to the patient's history of arrhythmia and pacemaker. With the stone treated, the procedure ended. The patient was cleaned, aroused from anesthesia, and transferred to the pacu in stable condition having tolerated the procedure well with no complications. I was present and participated in all aspects of the procedure. The patient will be monitored in the PACU until transferred. I attest to the content of the Intraoperative Record and any orders documented therein. Any exceptions are noted below.
[2017-04-06 14:44] VITALS: TEMP 37.3
--- NOTE | 2017-04-06 15:06 | Anesthesia Progress Nt - [facility] ---
Anesthesia Post Op Note Date & Time Apr 06, 2017 at 15:06 Vital Signs Pain Intensity: 0 Vital Signs Past 12 Hours Date Time Temp Pulse Resp B/P (MAP) Pulse Ox O2 Delivery O2 Flow Rate FiO2 04/06/17 14:50 145/92 04/06/17 14:49 86 21 04/06/17 14:49 87 21 95 04/06/17 14:48 87 17 04/06/17 14:48 85 17 91 04/06/17 14:45 127/93 04/06/17 14:44 37.3 83 12 121/84 97 Room Air 04/06/17 14:43 79 12 93 04/06/17 14:43 79 12 04/06/17 14:40 121/84 04/06/17 14:38 82 13 93 04/06/17 14:38 82 13 04/06/17 14:37 84 21 95 04/06/17 14:37 84 21 04/06/17 14:35 142/91 04/06/17 14:32 77 13 99 04/06/17 14:32 78 13 04/06/17 14:30 130/85 04/06/17 14:27 80 20 100 04/06/17 14:27 81 20 04/06/17 14:25 132/86 04/06/17 14:22 83 11 98 04/06/17 14:22 83 11 04/06/17 14:20 145/90 04/06/17 14:17 89 15 98 04/06/17 14:17 87 15 04/06/17 14:15 148/90 04/06/17 14:12 86 148/97 95 04/06/17 14:12 86 04/06/17 14:12 36.0 85 16 148/97 96 Mask 6 04/06/17 10:29 37.1 97 22 126/81 (96) 96 Room Air Notes Mental Status: alert / awake / arousable, participated in evaluation Pt Amnestic to Procedure: Yes Nausea / Vomiting: adequately controlled Pain: adequately controlled Airway Patency, RR, SpO2: stable & adequate BP & HR: stable & adequate Hydration State: stable & adequate Anesthetic Complications: no major complications apparent
[2017-04-06 15:17] VITALS: BP 141/87; PULSE 87; O2SAT 93
== END | disposition home or self-care (01) ==
LOC: X.SURG 09:51
PROVIDERS: ATTEND Urology
DX: N20.0 Calculus of kidney (principal); F41.9 Anxiety disorder, unspecified; I10 Essential (primary) hypertension; F30.9 Manic episode, unspecified; K21.9 Gastro-esophageal reflux disease without esophagitis; E78.00 Pure hypercholesterolemia, unspecified; E78.5 Hyperlipidemia, unspecified; Z87.440 Personal history of urinary (tract) infections; Z95.0 Presence of cardiac pacemaker; Z87.442 Personal history of urinary calculi; Z98.51 Tubal ligation status; Z80.42 Family history of malignant neoplasm of prostate; Z88.0 Allergy status to penicillin; Z90.710 Acquired absence of both cervix and uterus; Z90.49 Acquired absence of other specified parts of digestive tract

== ENCOUNTER → 2017-05-01 | Outpatient (CLI) | payer OTHER ==
[~2017-05-01] MED LIST changes: -ATROPINE SULFATE 0.1 MG/ML 5ML SYR IV PRN; -CIPROFLOXACIN 400MG / D5W IV SCH; -DEXAMETHASONE SOD INJ 4 MG/ML VIAL IV PRN; -DEXAMETHASONE SOD INJ 4 MG/ML VIAL ONE; -EpHEDrine SULFATE INJ 50 MG/ML AMP IV PRN; -FENTANYL CITRATE INJ 50 MCG/1 ML 2 ML VIAL IV PRN; -FENTANYL CITRATE INJ 50 MCG/1 ML 2 ML VIAL ONE; -KETOROLAC TROMETHAMINE 30 MG/ML VIAL IV. PRN; -KETOROLAC TROMETHAMINE 30 MG/ML VIAL ONE; -LABETALOL HCL IV 5 MG/ML 20ML IV PRN; -LACTATED RINGER'S 1000ML 1,000 ML IV SCH; -LIDOCAINE HCL 2% 2 ML VIAL (20MG/ML) ONE; -METOCLOPRAMIDE HCL INJ 5 MG/ML 2 ML VIAL IV PRN; -MIDAZOLAM HCL 1 MG/ML 2ML VIAL ONE; -ONDANSETRON INJ 2 MG/ML 2 ML VIAL IV PRN; -ONDANSETRON INJ 2 MG/ML 2 ML VIAL ONE; -OXYCODONE/ACETAMINOPHEN 7.5-325 TAB PO PRN; -PHEN-775 PO; -PHENYLEPHRINE 100MCG/ML 5ML SYR IV PRN; -PROPOFOL IV EMULSION 10 MG/ML 20 ML VIAL IV ONE
[2017-05-01 16:05] LABS: ALBUMIN 3.4 gm/dl (3.4-5.0); ALT/SGPT 28 U/L (12-78); AST/SGOT 17 U/L (15-37); BLOOD UREA NITROGEN 13 mg/dl (7-18); CALCIUM 9.1 mg/dl (8.5-10.1); CARBON DIOXIDE 27 mmol/L (21-32); CREATININE 1.07 mg/dl (0.60-1.20); GLUCOSE 99 mg/dl (70-99); POTASSIUM 4.3 mmol/L (3.5-5.1); SODIUM 139 mmol/L (136-145)
[2017-05-01 16:09] LABS: ALKALINE PHOSPHATASE 164 U/L (45-117); CHOLESTEROL 204 mg/dl (0-200); LDL CHOLESTEROL CALCULATED 136 mg/dl; TOTAL PROTEIN 7.5 gm/dl (6.4-8.2)
== END | disposition home or self-care (01) ==
LOC: C.LABBFT 10:08
PROVIDERS: ATTEND Nurse Practitioner
DX: E78.5 Hyperlipidemia, unspecified (principal)

== ENCOUNTER → 2017-05-04 | Outpatient (CLI) | payer OTHER ==
--- NOTE | 2017-05-04 15:33 | DIAGNOSTIC IMAGING REPORT ---
KUB CLINICAL HISTORY: N20.0 [id number] nephrocalcinosis COMPARISON STUDY: 04/06/2017 FINDINGS: Suboptimal exam due to overlying bowel content. Probable stable bilateral nephrocalcinosis. Stable unchanged pelvic calcifications IMPRESSION: Limited exam due to overlying bowel content. Probable stable bilateral nephrocalcinosis. The above report was generated using voice recognition software. It may contain grammatical, syntax or spelling errors. Electronically signed by: Kobi Dempsey M.D. 05/04/2017 3:32 PM Dictated Date/Time: 05/04/2017 3:27 PM
== END | disposition home or self-care (01) ==
LOC: C.RAD 15:07
PROVIDERS: ATTEND Urology
DX: N20.0 Calculus of kidney (principal)

== ENCOUNTER → 2017-06-13 | Outpatient (CLI) | payer OTHER ==
--- NOTE | 2017-06-13 11:59 | DIAGNOSTIC IMAGING REPORT ---
EXAMINATION: RENAL ULTRASOUND CLINICAL HISTORY: N20.0 [id number] COMPARISON STUDY: 03/08/2017 FINDINGS: The right kidney measures 9.9 cm. The left kidney measures 9.4 cm. There is no evidence of hydronephrosis. There are no renal masses. There is a 4 mm echogenic focus within the lower pole of the right kidney. There is a 3 mm echogenic focus within the upper pole the left kidney. No bladder abnormalities are visualized. Bilateral ureteral jets were visualized. IMPRESSION : 1. No evidence of hydronephrosis 2. Probable bilateral renal calculi. Electronically signed by: Jose Enrique Wang M.D. 06/13/2017 11:57 AM Dictated Date/Time: 06/13/2017 11:55 AM
--- NOTE | 2017-06-13 12:07 | DIAGNOSTIC IMAGING REPORT ---
KUB CLINICAL HISTORY: N20.0 Kidney [id number] COMPARISON STUDY: 05/04/2017 FINDINGS: There is a mild lumbar levoscoliosis. There is no pathologic bowel dilatation. There is moderate stool within the colon. There are no calcifications suspicious for renal calculi. Pelvic basin calcifications remain similar in orientation the prior study. IMPRESSION: No renal calculi identified, however the kidneys are partially secured by overlying bowel gas and fecal material Electronically signed by: Jose Enrique Wang M.D. 06/13/2017 12:06 PM Dictated Date/Time: 06/13/2017 12:05 PM
== END | disposition home or self-care (01) ==
LOC: C.ULTR 11:07
PROVIDERS: ATTEND Urology
DX: N20.0 Calculus of kidney (principal)

== ENCOUNTER → 2017-07-17 | Outpatient (CLI) | payer OTHER ==
--- NOTE | 2017-07-31 13:17 | MAMMOGRAPHY REPORT ---
BILATERAL DIGITAL SCREENING MAMMOGRAM TOMOSYNTHESIS WITH CAD: 07/17/2017 CLINICAL HISTORY: Routine screening. Patient has no complaints. TECHNIQUE: Breast tomosynthesis in addition to standard 2D mammography was performed. Current study was also evaluated with a Computer Aided Detection (CAD) system. COMPARISON: Comparison is made to exams dated: 06/21/2016 mammogram - [facility], mammogram, 06/25/2014 mammogram, 06/18/2014 mammogram, 06/18/2014 mammogram, and 06/13/[facility]. BREAST COMPOSITION: The tissue of both breasts is heterogeneously dense, which may obscure small mas ses. FINDINGS: A metallic pacemaker projects over the superior left breast and pectoralis muscle on the ML O views. There is stable nodularity in the lateral right breast. No suspicious spiculated or irregu lar mass, architectural distortion or cluster of microcalcifications is seen. IMPRESSION: ACR BI-RADS CATEGORY 1: NEGATIVE There is no mammographic evidence of malignancy. A 1 year screening mammogram is recommended. The pa tient will receive written notification of the results. Approximately 10% of breast cancers are not detected with mammography. A negative mammographic report should not delay biopsy if a clinically suggestive mass is present. Janna Salomon M.D. ay/:07/30/2017 15:29:41 Sanitary Napkin Machine Tender: Be Moscoso M, [facility] letter sent: Normal 1/2 BI-RADS Code: ACR BI-RADS Category 1: Negative
== END | disposition home or self-care (01) ==
LOC: C.MAMM 14:24
PROVIDERS: ATTEND Nurse Practitioner
DX: Z12.31 Encounter for screening mammogram for malignant neoplasm of breast (principal)

== ENCOUNTER 2018-04-09 13:02 | Inpatient (IN) ==
[2018-04-09 14:00] LABS: Basophils # (auto) 0.01 K/uL (0-0.2); Basophils % (auto) 0.2 %; Eosinophils # (auto) 0.04 K/uL (0-0.5); Eosinophils % (auto) 0.8 %; Hematocrit (blood only) 40.4 % (37-47); Hemoglobin 13.4 g/dL (12.0-16.0); Immature Granulocytes # (auto) 0.02 K/uL (0.00-0.02); Immature Granulocytes % (auto) 0.4 %; Lymphocytes # (auto) 2.13 K/uL (1.2-3.4); Lymphocytes % (auto) 40.6 %; Mean Corpuscular Hgb Conc 33.2 g/dL (32-36); Mean Corpuscular Volume 79.8 fL (80-100); Mean Platelet Volume 9.8 fL (7.4-10.4); Monocytes # (auto) 0.41 K/uL (0.11-0.59); Monocytes % (auto) 7.8 %; Neutrophils # (auto) 2.64 K/uL (1.4-6.5); Neutrophils % (auto) 50.2 %; Platelet Count 265 K/uL (130-400); RDW Coefficient of Variation 16.4 % (11.5-14.5); Red Blood Count 5.06 M/uL (4.2-5.4); White Blood Count 5.25 K/uL (4.8-10.8)
[2018-04-09 14:19] LABS: Albumin Level 3.8 gm/dl (3.4-5.0); Calcium 9.2 mg/dl (8.5-10.1); Creatinine Clr Calc Pharmacy 64.8 ml/min; Est GFR (African American) 93.6; Est GFR (Non-African American) 80.8
[2018-04-09 14:24] LABS: Acetaminophen < 2 ug/ml (10-30); Salicylate 3.1 mg/dl (2.8-20)
[2018-04-09 14:29] LABS: Albumin Globulin Ratio 0.9 (0.9-2); Bilirubin,Total 0.4 mg/dl (0.2-1); Globulin 4.3 gm/dl (2.5-4.0); Total Protein 8.1 gm/dl (6.4-8.2)
[2018-04-09 14:35] LABS: Appearance Urine Clear (Clear); Bilirubin Urine Negative (Negative); Color Urine Yellow; Glucose Urine UA Negative (Negative); Ketones Urine Negative (Negative); Leukocyte Esterase Urine Negative (Negative); Nitrite Urine Negative (Negative); Protein Urine Negative (Negative); Urobilinogen Urine Negative (Negative); pH Urine 5.5 (4.5-7.5)
[2018-04-09 15:25] LABS: Amphetamines+Metham, Urine Neg (Neg); Barbiturates, Urine Neg (Neg); Benzodiazepine, Urine Neg (Neg); Cocaine, Urine Neg (Neg); MDMA (Ecstacy), Urine Neg (Neg); Methadone, Urine Neg (Neg); Opiate, Urine Neg (Neg); Phencyclidine, Urine Neg (Neg)
[2018-04-09] MEDS ORDERED: ACETAMINOPHEN 325 MG TAB PO PRN (17:02)
[2018-04-09] MEDS ORDERED: BISMUTH SUBSALICYLATE PER ML OMNICELL CHARGE PO PRN (17:02)
[2018-04-09] MEDS ORDERED: SODIUM CHLORIDE 0.65% NA SOLN 45 ML (OCEAN) PRN (17:02)
[2018-04-09] MEDS ORDERED: MAGNESIUM HYDROXIDE SUSP 30 ML UDC PO PRN (17:02)
[2018-04-09] MEDS ORDERED: QUETIAPINE FUMARATE 25 MG TABLET PO PRN (17:06)
--- NOTE | 2018-04-09 17:09 | Emergency Department Note ---
Entered by Macario Terry acting as a scribe for Zander Moreland DO History of Present Illness General Chief complaint: Mental Health Evaluation Stated complaint: suicidal Source: patient Limitations: no limitations History of Present Illness Provider complaint: Suicidal/homicidal deation. Onset (ago): day(s) Location: head (Psych) Pain Consistency: + other (worsening) Quality: + other (Suicidal, homicidal ideation) Treatments prior to arrival: none The patient is a 63 year old female who presents to the Emergency Room for a psychiatric evaluation secondary to her worsening mental status. The patient notes that she has been "really depressed" over the past couple of days. She adds "I really want to hurt someone, and kill myself." She states that if she were to kill herself she would use "pills." The patient elaborates that she wants to kill her rubéner's best friend of 30 years because she took her duaghter's and is trying to take custody of the children. The patient has a history of psychiatric disturbance and has been diagnosed with Bipolar and PTSD in the past. She is not taking any psychiatric medications currently because she states her doctor "pulled my meds away." Home Medications Home Medications Medication Instructions Recorded Confirmed Type quetiapine [Seroquel] 100 mg PO QPM 04/09/18 04/09/18 History Allergies Allergy/AdvReac Type Severity Reaction Status Date / Time morphine Allergy Severe SHORTNESS Verified 04/09/18 14:49 OF BREATH Bactrim Allergy Intermediate Itching Verified 10/02/17 09:54 Sulfa (Sulfonamide Allergy Intermediate ITCHY Verified 04/09/18 14:49 Antibiotics) sulfamethoxazole Allergy Intermediate Itching Verified 04/09/18 14:49 trimethoprim Allergy Intermediate Itching Verified 04/09/18 14:49 doxycycline Allergy Mild RED WELTS Verified 04/09/18 14:49 codeine AdvReac Mild VOMITING Verified 04/09/18 14:49 hydrocodone AdvReac Mild Vomiting Verified 04/09/18 14:49 Penicillins AdvReac Mild VOMITING Verified 04/09/18 14:49 Past Med/Surg History Medical History Acute renal failure Advance care planning Flank pain GERD (gastroesophageal reflux disease) Gross hematuria (Resolved) Hydronephrosis of left kidney Low back pain (Resolved) Mood disorder (Acute) Rash and nonspecific skin eruption (Acute) Renal colic Renal colic on left side Tobacco abuse counseling UTI (urinary tract infection) (Resolved) Bright red rectal bleeding (Inactive) Constipation (Inactive) H/O: hysterectomy Hiatal hernia Kidney stone Social History Feels Safe at Home: Yes Smoking Status: Current every day smoker Preferred Language: Austrian Review of Systems See HPI for pertinent positives & negatives. and A total of 10 systems reviewed and were otherwise negative Physical Exam Vital Signs Vital Signs - 24 hr 04/09/18 13:02 04/09/18 16:03 Temperature 37.0 C Temperature Source Oral Sepsis Recent Fever Within 48 Hours No Sepsis New/Unexplained Change in Mental Status No Sepsis Action Taken by Nursing No Action Required Pulse Rate 87 Pulse Rate [Left Finger] 75 Respiratory Rate 18 15 Respiratory Effort / Characteristics Non-Labored Respiratory Depth Normal Normal Blood Pressure 145/102 H Blood Pressure [Left Arm] 145/96 H Blood Pressure Mean 116 Blood Pressure Mean [Left Arm] 112 Pulse Oximetry 98 95 Oxygen Delivery Method Room Air Room Air GENERAL: Sitting up in bed, alert, disheveled appearing, well nourished, no distress, non-toxic EYE EXAM: normal conjunctiva. OROPHARYNX: no exudate, no erythema, lips, buccal mucosa, and tongue normal and mucous membranes are moist NECK: supple, no nuchal rigidity, no adenopathy, non-tender LUNGS: Clear to auscultation. Normal chest wall mechanics HEART: no murmurs, S1 normal and S2 normal ABDOMEN: abdomen soft, non-tender, normo-active bowel, sounds, no masses, no rebound or guarding. BACK: Back is symmetrical on inspection and there is no deformity, no midline tenderness, no CVA tenderness. SKIN: no rashes and no bruising UPPER EXTREMITIES: upper extremities are grossly normal. LOWER EXTREMITIES: No pitting edema. NEURO EXAM: Normal sensorium, cranial nerves II-XII grossly intact, normal speech, no gross weakness of arms, no gross weakness of legs. PSYCH: Admits to suicidal ideation with a plan to overdose as well as homicidal ideation. Course ED COURSE: Vital signs were reviewed and showed hypertension. The patients medical record was reviewed The above diagnostic studies were performed and reviewed. ED treatments and interventions as stated above. 1315: The patient was evaluated in room A7. A complete history and physical examination was performed. 1531: The patient has been mediaclly cleared, the psychiatric catalytic case operator will evaluate for inpatient treatment. The patent has been accepted to [address] [place] [id number]. She will be admitted for inpatient psychiatric treatment. Medical Decision Making Differential Diagnosis Differential diagnosis: Etiologies such as psychiatric disorder, infection, hypoglycemia, electrolyte abnormalities, cardiac sources, intracerebral event, toxicological process, neurologic disorder, as well as others were entertained. Medical Records Attestation: I reviewed the patient's medical records. Home Medications Current Medication List: was personally reviewed by wv Laboratory Data Attestation: I reviewed the patient's lab results. Result diagrams: 04/09/18 13:44 04/09/18 13:44 Lab Results 04/09/18 04/09/18 04/09/18 Range/Units 13:24 13:24 13:44 WBC 5.25 (4.8-10.8) K/uL RBC 5.06 (4.2-5.4) M/uL Hgb 13.4 (12.0-16.0) g/dL Hct 40.4 (37-47) % MCV 79.8 L (80-100) fL MCH 26.5 (25-34) pg MCHC 33.2 (32-36) g/dL RDW Std Deviation 48.0 H (36.4-46.3) fL RDW Coeff of Rosa Maria 16.4 H (11.5-14.5) % Plt Count 265 (130-400) K/uL MPV 9.8 (7.4-10.4) fL Immature Gran % (Auto) 0.4 % Neut % (Auto) 50.2 % Lymph % (Auto) 40.6 % Citrus % (Auto) 7.8 % Eos % (Auto) 0.8 % Baso % (Auto) 0.2 % Immature Gran # (Auto) 0.02 (0.00-0.02) K/uL Neut # (Auto) 2.64 (1.4-6.5) K/uL Lymph # (Auto) 2.13 (1.2-3.4) K/uL Citrus # (Auto) 0.41 (0.11-0.59) K/uL Eos # (Auto) 0.04 (0-0.5) K/uL Baso # (Auto) 0.01 (0-0.2) K/uL Sodium (136-145) mmol/L Potassium (3.5-5.1) mmol/L Chloride (98-107) mmol/L Carbon Dioxide (21-32) mmol/L Anion Gap (3-11) BUN (7-18) mg/dl Creatinine (0.6-1.2) mg/dl Est Cr Clr Drug Dosing ml/min Est GFR ( Amer) Est GFR (Non-Af Amer) BUN/Creatinine Ratio (10-20) Glucose (70-99) mg/dl Calcium (8.5-10.1) mg/dl Total Bilirubin (0.2-1) mg/dl AST (15-37) U/L ALT (12-78) U/L Alkaline Phosphatase (45-117) U/L Total Protein (6.4-8.2) gm/dl Albumin (3.4-5.0) gm/dl Globulin (2.5-4.0) gm/dl Albumin/Globulin Ratio (0.9-2) TSH (0.300-4.500) uIu/ml Urine Color Yellow Urine Appearance Clear (Clear) Urine pH 5.5 (4.5-7.5) Ur Specific [place] 1.020 (1.000-1.030) Urine Protein Negative (Negative) Urine Glucose (UA) Negative (Negative) Urine Ketones Negative (Negative) Urine Blood Negative (Negative) Urine Nitrite Negative (Negative) Urine Bilirubin Negative (Negative) Urine Urobilinogen Negative (Negative) Ur Leukocyte Esterase Negative (Negative) Salicylates (2.8-20) mg/dl Urine Opiates Screen Neg (Neg) Ur Methadone, Qual Neg (Neg) Acetaminophen (10-30) ug/ml Urine Barbiturates Neg (Neg) Ur Phencyclidine (PCP) Neg (Neg) U Amphetamin/Meth Scrn Neg (Neg) MDMA (Ecstasy) Screen Neg (Neg) U Benzodiazepines Scrn Neg (Neg) Ur Cocaine Metabolite Neg (Neg) U Marijuana (THC) Screen Neg (Neg) Ethyl Alcohol mg/dL (0-3) mg/dl 04/09/18 04/09/18 04/09/18 Range/Units 13:44 13:44 13:44 WBC (4.8-10.8) K/uL RBC (4.2-5.4) M/uL Hgb (12.0-16.0) g/dL Hct (37-47) % MCV (80-100) fL MCH (25-34) pg MCHC (32-36) g/dL RDW Std Deviation (36.4-46.3) fL RDW Coeff of Rosa Maria (11.5-14.5) % Plt Count (130-400) K/uL MPV (7.4-10.4) fL Immature Gran % (Auto) % Neut % (Auto) % Lymph % (Auto) % Citrus % (Auto) % Eos % (Auto) % Baso % (Auto) % Immature Gran # (Auto) (0.00-0.02) K/uL Neut # (Auto) (1.4-6.5) K/uL Lymph # (Auto) (1.2-3.4) K/uL Citrus # (Auto) (0.11-0.59) K/uL Eos # (Auto) (0-0.5) K/uL Baso # (Auto) (0-0.2) K/uL Sodium 136 (136-145) mmol/L Potassium 4.0 (3.5-5.1) mmol/L Chloride 107 (98-107) mmol/L Carbon Dioxide 23 (21-32) mmol/L Anion Gap 6.0 (3-11) BUN 10 (7-18) mg/dl Creatinine 0.79 (0.6-1.2) mg/dl Est Cr Clr Drug Dosing 64.8 ml/min Est GFR ( Amer) 93.6 Est GFR (Non-Af Amer) 80.8 BUN/Creatinine Ratio 13.0 (10-20) Glucose 86 (70-99) mg/dl Calcium 9.2 (8.5-10.1) mg/dl Total Bilirubin 0.4 (0.2-1) mg/dl AST 18 (15-37) U/L ALT 21 (12-78) U/L Alkaline Phosphatase 162 H (45-117) U/L Total Protein 8.1 (6.4-8.2) gm/dl Albumin 3.8 (3.4-5.0) gm/dl Globulin 4.3 H (2.5-4.0) gm/dl Albumin/Globulin Ratio 0.9 (0.9-2) TSH 0.880 (0.300-4.500) uIu/ml Urine Color Urine Appearance (Clear) Urine pH (4.5-7.5) Ur Specific [place] (1.000-1.030) Urine Protein (Negative) Urine Glucose (UA) (Negative) Urine Ketones (Negative) Urine Blood (Negative) Urine Nitrite (Negative) Urine Bilirubin (Negative) Urine Urobilinogen (Negative) Ur Leukocyte Esterase (Negative) Salicylates 3.1 (2.8-20) mg/dl Urine Opiates Screen (Neg) Ur Methadone, Qual (Neg) Acetaminophen < 2 L (10-30) ug/ml Urine Barbiturates (Neg) Ur Phencyclidine (PCP) (Neg) U Amphetamin/Meth Scrn (Neg) MDMA (Ecstasy) Screen (Neg) U Benzodiazepines Scrn (Neg) Ur Cocaine Metabolite (Neg) U Marijuana (THC) Screen (Neg) Ethyl Alcohol mg/dL < 3.0 (0-3) mg/dl Blood Pressure Blood Pressure Findings: Elevated blood pressure Blood Pressure Disposition: elevated BP felt to be situational MDM Narrative Patient is a 63-year-old female who presents the ER for suicidal homicidal ideations with a plan to overdose. She does have a history of bipolar is not taking any of her medications. She has no physical complaints at this time. Labs were obtained and showed no significant leukocytosis or anemia. BMP along with LFTs bilirubin were unremarkable. TSH was unremarkable as well. Tox was negative. Patient was updated bedside. Evaluated by her psychiatric care partner Caitlin. Patient was accepted to [address] Impression & Plan Mood disorder, Suicidal ideation, Homicidal ideation Discharge Plan Visit Data Chief Complaint: Mental Health Evaluation Stated Complaint: suicidal ED Provider: Zander Moreland Discharge Problem: Mood disorder, Suicidal ideation, Homicidal ideation Patient Disposition: Transfer Behavioral Health Fac Forms Stand Alone Forms: My [facility] Prescriptions Prescriptions: No Action quetiapine [Seroquel] 100 mg Tablet 100 mg PO QPM RF: 0 Referrals Referrals: Candi Moreno CRNP [Primary Care Provider] - The scribe's documentation has been prepared under my direction and personally reviewed by me in its entirety. I confirm that the note above accurately reflects all work, treatment, procedures, and medical decision making performed by me.
[2018-04-09] MEDS ORDERED: QUETIAPINE FUMARATE 100 MG TABLET PO SCH (21:00)
[2018-04-10] MEDS: ALUMINUM/MAGNESIUM SUSP 30 ML UDC PO PRN (06:46)
--- NOTE | 2018-04-10 10:04 | History & Physical ---
Date of Service April 10, 2018 Impression / Recommendations Impression 63-year-old woman with bipolar disorder, admitted to our unit voluntarily with suicidality and homicidality. She has been off of her medicines for 2 months and only yesterday saw a new provider at [facility] and was restarted on Seroquel. We have reviewed to the best of the patient's ability, medication she has been on in the past and she does not believe that any of been significantly helpful. She has never had a trial of Depakote which may lend some help to her anger and irritability and agrees to a trial. Risks, benefits and alternatives were reviewed and accepted. The patient is willing for regular blood draws. She does report that gabapentin has been helpful to her anxiety and irritability to some degree in the past and so we will restart this at 300 mg 3 times daily. I will take the liberty of discontinuing Seroquel given that Seroquel in addition to Depakote, could prevent a significant weight gain risk. We will need to coordinate with her outpatient providers and have already obtained the notes from [facility] from yesterday. Due to the fact that she has made threats against her daughter's ex-best friend, we will need to follow through with a duty to warn. We will also need to clarify her medical medications that she does not remember and has not been taking those of late either. She is a smoker, and I will order Nicorette gum but she declined the use of the patch at this time. At this time, the patient requires inpatient mental health treatment due to the severity of her condition and the risk for harm to self or others if discharged. (1) Bipolar disorder: 04/10/18 - Restart Gabapentin 300 mg TID - Trial Depakote ER 500 mg HS X 1, 1000 mg HS X 1 then 1500 mg HS with level after 5 days - Obtain records from providers and inpatient stays - Family meeting if indicated - Duty to warn daughter's ex best friend against whom patient made homicidal statements - q 15 min checks for safety - Encourage participation in group and individual counseling - Assist the patient to explore healthy coping strategies - Will DC MNPR, as patient denies ideas to hurt anyone else and even now doesn't want to hurt daughter's ex best friend Present on Admission?: Yes (2) Tobacco use disorder: 04/10 - Will order nicorette gum. Patient declines use of the patch Present on Admission?: Yes (3) GERD (gastroesophageal reflux disease): 04/10 - Hx of being on PPI. Will order protonix Present on Admission?: Yes (4) Dyslipidemia: 04/10 - History of having been on Atorvastatin - Will clarify with Candi Moreno's office Present on Admission?: Yes Inventory Assets Strengths: Love of family, does not abuse substances Needs: Healthy coping strategies, medication compliance Risk Factors Assessment Male: No : Yes Do You Have Access To A Gun?: No Health Problems: Yes Mental Health Diagnoses: Yes Substance Use Disorders: No Previous Attempt: Yes Family History of Suicide: No Previous Psychiatric Hospitalization: Yes Hopelessness: No Smoker: Yes Protective Factors Assessment : No () Responsible for Young Children: No Employed: No Stable Relationships: No Good Rapport with Provider: Yes Psychiatric History Identifying Data RIVERA IBRAHIM is a 63-year-old F, currently in treatment with [facility] for diagnosis of bipolar disorder, who presented to the ED with complaints of suicidal and homicidal ideation, having been off of her meds for 2 months. She is admitted voluntarily. Information is gathered from the patient, and OP records, and considered to be reliable. Chief Complaint "I couldn't hold my thoughts in. ". History of Present Illness The patient is a 63 yo woman with bipolar disorder, who reports that she has been off of her meds for two months. Apparently she was in treatment with Dr. Guillen, and she perceives that there was a misunderstanding about her appt, and she was discharged from his practice. She says that she was on "11 or 12 medications" and ran out of all of them 2 months ago. Since that time, she has become increasingly irritable to the point of having both suicidal thoughts and homicidal thoughts yesterday, and after being seen at her new providers office ( [facility]), was referred to the hospital. Her primary stress has to do with her family. She has a daughter, whose ex the daughter's best friend of 30 years, which was a big betrayal. The ex and his new have custody of the patient's grandchildren and are interfering with with visitation and with her daughter regaining any element of custody. She says that she was having thoughts to hurt, or according to the ED note, murder the ex's new , but denies that she has acted on these thoughts. Today she remains irritable, but says she doesn't want to hurt herself or anyone else and recognizes that she needs to be back on some medications. She denies that there have been any meds or combination of meds in the past that have been helpful to her. She admits to SI with thoughts to overdose, and thoughts to "punch" the ex's new . She reports that in the last 3 months, her sleep has been "terrible" with both difficulty falling asleep as well as staying asleep, getting on average about 2 hrs sleep per night. Her appetite has been "off" and reports a 12 pound weight loss in the last month. Her energy is "no good" and says that she feels "zapped by everything". Her anxiety is "high" and experiences panic attacks which consist of elevated heart rate and feeling a heaviness in her chest, usually triggered by "not knowing". She denies ever having had auditory or visual hallucinations. She does have some obsessive tendencies including the need for everything to be clean and risk management internship and in its place but denies any compulsions or rituals. Her anger has been a problem long-term and she usually yells or slams things but has never hurt anyone. She denies any self-injurious behaviors. She reports that she has "mood swings" meaning that she goes from being all right to being irritable and depressed. In terms of manic episodes, she reports that she had one several months ago that lasted 2-3 days. She denied euphoric mood but says that "everything was good". Past Psychiatric History Previous Psych History: Previously in treatment with Dr. Guillen who she reports discharged her for likely noncompliance with treatment Current Psychiatric Diagnosis: Bipolar Disorder Outpatient Services: Currently seeing Lindsay ESQUIVEL at [facility] and [facility] for therapy Previous Psych Admissions: [facility] in the [facility], more recently has been hospitalized at the [facility]. Do You Have Access To A Gun?: No History of Previous Suicide Attempt: Yes Describe Attempts in the Past: One attempt many years ago Past Medication Trials: Dilantin Multiple antidepressants Paxil Pella Abilify Doxepin Lamictal Lexapro Latuda Past Head Trauma/Neuro History History of Concussion/Seizure: No Allergies Allergy/AdvReac Type Severity Reaction Status Date / Time morphine Allergy Severe SHORTNESS Verified 04/09/18 14:49 OF BREATH Bactrim Allergy Intermediate Itching Verified 10/02/17 09:54 Sulfa (Sulfonamide Allergy Intermediate ITCHY Verified 04/09/18 14:49 Antibiotics) sulfamethoxazole Allergy Intermediate Itching Verified 04/09/18 14:49 trimethoprim Allergy Intermediate Itching Verified 04/09/18 14:49 doxycycline Allergy Mild RED WELTS Verified 04/09/18 14:49 codeine AdvReac Mild VOMITING Verified 04/09/18 14:49 hydrocodone AdvReac Mild Vomiting Verified 04/09/18 14:49 Penicillins AdvReac Mild VOMITING Verified 04/09/18 14:49 Home Medications Home Medications Medication Instructions Recorded Confirmed Type quetiapine [Seroquel] 100 mg PO QPM 04/09/18 04/09/18 History Family History Family History of: Depression (daughter), Anxiety (daughter) and Doesn't Know Alcohol History Hx of Alcohol Use Over the Past 12 Months: No AUDIT Total Score: 0 Smoking Use Have You Smoked or Used Tobacco Products in the Last 30 Days: Yes (10 cigarettes per day) tobacco type: cigarettes Smoking Status: Light tobacco smoker Substance History Hx of Prescription Med Misuse Over the Past 12 Months: No Hx of Over the Counter Med Misuse Over the Past 12 Months: No Hx of Inhalent Misuse Over the Past 12 Months: No Hx of Organic Substance Use Over the Past 12 Months: No Hx of Illegal Substances/Street Drug Use Over Past 12 Months: No Problems as a Result of Past Substance Use: None Identified Personal History [facility] Child[facility]: RAised by both parents. Had 2 brothers, one of whom is . Highest Grade Completed Comment: Attended school through the tenth grade when she dropped out because of mental health issues. Employment Status: Disabled Marital Status: (but from for 6 or 7 years) Number Of Children: 3, 2 daughters 1 son Beliefs That Will Affect Care: None Current Legal Problems: No Hx Legal Problems: No Patient History Medical History Acute renal failure Advance care planning Flank pain GERD (gastroesophageal reflux disease) Gross hematuria (Resolved) Hydronephrosis of left kidney Low back pain (Resolved) Mood disorder (Acute) Rash and nonspecific skin eruption (Acute) Renal colic Renal colic on left side Tobacco abuse counseling UTI (urinary tract infection) (Resolved) History of hysterectomy Pacemaker Bright red rectal bleeding (Inactive) Constipation (Inactive) H/O: hysterectomy Hiatal hernia Kidney stone Social History Feels Safe at Home: Yes Smoking Status: Light tobacco smoker Tobacco Type: cigarettes Beliefs That Will Affect Care: None Preferred Language: Colombian Communication Ability: Effective Review of Systems All systems reviewed & are unremarkable except as noted in HPI & below Gastrointestinal: + diarrhea/loose stools Neurologic: + headache(s) Physical Exam Mental Examination Exam performed by Dr. Morelnad in the ED has been reviewed and accepted as medical clearance for our unit. Psychiatric Orientation: alert and cooperative Apperance: appropriately dressed and appropriately groomed Eye Contact: good eye contact Motor Behavior: steady gait and station and no abnormal motor movements Speech: normal rate/rhythm/volume of speech Affect: + flat affect Mood: + irritable mood Thought Process: goal directed thought process Thought Content: reality based without delusions Suicidal Thoughts: + reports suicidal thoughts (thoughts to OD) Homicidal Thoughts: + reports homicidal thoughts thoughts to kill or murder daughters ex best friend Hallucinations: no auditory hallucinations and no visual hallucinations Cognition: recent memory grossly intact, remote memory grossly intact, attention grossly intact and language grossly intact Estimated Intelligence: + below average estimated intelligence Insight: + impaired insight Judgement: + impaired judgement Vital Signs (Past 24 Hours) Last Vital Signs Temp 36.7 C 04/10/18 06:34 Pulse 111 H 04/10/18 06:35 Resp 16 04/10/18 06:34 BP 143/103 H 04/10/18 06:35 Pulse Ox 99 04/09/18 19:25 Results & Data Laboratory Results Laboratory Results - last 24 hr 04/09/18 04/09/18 04/09/18 13:24 13:24 13:44 WBC 5.25 RBC 5.06 Hgb 13.4 Hct 40.4 MCV 79.8 L MCH 26.5 MCHC 33.2 RDW Std Deviation 48.0 H RDW Coeff of Rosa Maria 16.4 H Plt Count 265 MPV 9.8 Immature Gran % (Auto) 0.4 Neut % (Auto) 50.2 Lymph % (Auto) 40.6 [place] % (Auto) 7.8 Eos % (Auto) 0.8 Baso % (Auto) 0.2 Immature Gran # (Auto) 0.02 Neut # (Auto) 2.64 Lymph # (Auto) 2.13 [place] # (Auto) 0.41 Eos # (Auto) 0.04 Baso # (Auto) 0.01 Sodium Potassium Chloride Carbon Dioxide Anion Gap BUN Creatinine Est Cr Clr Drug Dosing Est GFR ( Amer) Est GFR (Non-Af Amer) BUN/Creatinine Ratio Glucose Calcium Total Bilirubin AST ALT Alkaline Phosphatase Total Protein Albumin Globulin Albumin/Globulin Ratio TSH Urine Color Yellow Urine Appearance Clear Urine pH 5.5 Ur Specific [place] 1.020 Urine Protein Negative Urine Glucose (UA) Negative Urine Ketones Negative Urine Blood Negative Urine Nitrite Negative Urine Bilirubin Negative Urine Urobilinogen Negative Ur Leukocyte Esterase Negative Salicylates Urine Opiates Screen Neg Ur Methadone, Qual Neg Acetaminophen Urine Barbiturates Neg Ur Phencyclidine (PCP) Neg U Amphetamin/Meth Scrn Neg MDMA (Ecstasy) Screen Neg U Benzodiazepines Scrn Neg Ur Cocaine Metabolite Neg U Marijuana (THC) Screen Neg Ethyl Alcohol mg/dL 04/09/18 04/09/18 04/09/18 13:44 13:44 13:44 WBC RBC Hgb Hct MCV MCH MCHC RDW Std Deviation RDW Coeff of Rosa [place] Plt Count MPV Immature Gran % (Auto) Neut % (Auto) Lymph % (Auto) [place] % (Auto) Eos % (Auto) Baso % (Auto) Immature Gran # (Auto) Neut # (Auto) Lymph # (Auto) [place] # (Auto) Eos # (Auto) Baso # (Auto) Sodium 136 Potassium 4.0 Chloride 107 Carbon Dioxide 23 Anion Gap 6.0 BUN 10 Creatinine 0.79 Est Cr Clr Drug Dosing 64.8 Est GFR ( Amer) 93.6 Est GFR (Non-Af Amer) 80.8 BUN/Creatinine Ratio 13.0 Glucose 86 Calcium 9.2 Total Bilirubin 0.4 AST 18 ALT 21 Alkaline Phosphatase 162 H Total Protein 8.1 Albumin 3.8 Globulin 4.3 H Albumin/Globulin Ratio 0.9 TSH 0.880 Urine Color Urine Appearance Urine pH Ur Specific [place] Urine Protein Urine Glucose (UA) Urine Ketones Urine Blood Urine Nitrite Urine Bilirubin Urine Urobilinogen Ur Leukocyte Esterase Salicylates 3.1 Urine Opiates Screen Ur Methadone, Qual Acetaminophen < 2 L Urine Barbiturates Ur Phencyclidine (PCP) U Amphetamin/Meth Scrn MDMA (Ecstasy) Screen U Benzodiazepines Scrn Ur Cocaine Metabolite U Marijuana (THC) Screen Ethyl Alcohol mg/dL < 3.0 Current Inpatient Medications Current Inpatient Medications: Current Inpatient Medications Acetaminophen (Tylenol) 650 mg PO Q4H PRN PRN Reason: Headache or Minor Fever Stop: 05/09/18 17:01 Al Hydrox/Mg Hydrox/Simethicone (Maalox) 30 ml PO Q4H PRN PRN Reason: GI Upset Stop: 05/09/18 17:01 Last Admin: 04/10/18 06:46 Dose: 30 ml Bismuth Subsalicylate (Kaopectate) 15 ml PO PRN PRN PRN Reason: Loose Stool Stop: 05/09/18 17:01 Hydroxyzine HCl (Vistaril) 25 mg PO Q4H PRN PRN Reason: Anxiety Stop: 05/09/18 17:01 Hydroxyzine HCl (Vistaril) 50 mg PO HSZ PRN PRN Reason: Insomnia Stop: 05/09/18 17:01 Last Admin: 04/09/18 21:11 Dose: 50 mg Magnesium Hydroxide (Milk Of Magnesia) 30 ml PO DAILY PRN PRN Reason: Heartburn Stop: 05/09/18 17:01 Quetiapine Fumarate (Seroquel) 100 mg PO QPM JASON Stop: 05/09/18 20:59 Last Admin: 04/09/18 21:11 Dose: 100 mg Quetiapine Fumarate (Seroquel) 50 mg PO Q4H PRN PRN Reason: Agitation Stop: 05/09/18 17:14 Sodium Chloride ([place] Nasal) 1 - 2 sprays NA PRN PRN PRN Reason: Nasal Dryness/Congestion Stop: 05/09/18 17:01 CPT Code CPT Code Initial Hospital Care: 55354
[2018-04-10] MEDS ORDERED: NICOTINE POLACRILEX 2 MG GUM MT PRN (10:43)
[2018-04-10] MEDS: GABAPENTIN 300 MG CAP PO SCH ×2 (12:56→21:31)
[2018-04-10] MEDS: DIVALPROEX EXTENDED RELEASE 500 MG TAB PO SCH (21:31)
[2018-04-11] MEDS: GABAPENTIN 300 MG CAP PO SCH ×3 (08:57→21:16)
--- NOTE | 2018-04-11 12:43 | Psychiatric Progress Note ---
Date of Service April 11, 2018 Impression / Recommendations Impression 63-year-old female with bipolar disorder who was admitted to our unit voluntarily with suicidality and homicidality. She has been off of her medicines for 2 months and saw a new PA at [facility] on the day of admission, who prescribed her Seroquel. She reported that none of her past medications had been significantly helpful, but as she had never had a trial of Depakote, it was started to target mood swings, anger and irritability. Gabapentin was started for anxiety and irritability. She continues to endorse intrusive thoughts to harm her grandchildren stepmother, so inpatient treatment remains medically necessary due to the risk of harm for others. (1) Bipolar disorder: 04/10/18 - Restart Gabapentin 300 mg TID - Trial Depakote ER 500 mg HS X 1, 1000 mg HS X 1 then 1500 mg HS with level after 5 days - Obtain records from providers and inpatient stays - Family meeting if indicated - Duty to warn daughter's ex best friend against whom patient made homicidal statements - q 15 min checks for safety - Encourage participation in group and individual counseling - Assist the patient to explore healthy coping strategies - Will DC MNPR, as patient denies ideas to hurt anyone else and even now doesn't want to hurt daughter's ex best friend 04/11/18 - Continue current meds - Depakote titration (trough level ordered for at 8pm). - FM with daughter today. - Staff attempting to contact Sandie Parrish regarding the duty to warn her of patient's threats. If unable to obtain her contact information from the patient or her daughter, police will need to be contacted to discharge the duty to warn. (2) Tobacco use disorder: 04/10 - Will order nicorette gum. Patient declines use of the patch (3) GERD (gastroesophageal reflux disease): 04/10 - Hx of being on PPI. Will order protonix (4) Dyslipidemia: 04/10 - History of having been on Atorvastatin - Will clarify with Candi Moreno's office Inventory Assets Strengths: Love of family, does not abuse substances Needs: Healthy coping strategies, medication compliance Risk Factors Assessment Male: No : Yes Do You Have Access To A Gun?: No Health Problems: Yes Mental Health Diagnoses: Yes Substance Use Disorders: No Previous Attempt: Yes Family History of Suicide: No Previous Psychiatric Hospitalization: Yes Hopelessness: No Smoker: Yes Protective Factors Assessment : No () Responsible for Young Children: No Employed: No Stable Relationships: No Good Rapport with Provider: Yes Interval History Identifying Information RIVERA IBRAHIM is a 63-year-old F, currently in treatment with [facility] for diagnosis of bipolar disorder, who presented to the ED with complaints of suicidal and homicidal ideation, having been off of her meds for 2 months. She is admitted voluntarily. Information is gathered from the patient, and OP records, and considered to be reliable. Chief Complaint "Pretty anxious, rough morning". Review of Systems Sleep Information Total Hours of Sleep: 9 Sleep Comments: awake at 0500-requested food to eat. cereals and milk provided. she was able to fall back to sleep then awakened for am vital signs at 0600. pt. received a dose of vistaril for sleep aid at hs Meal Information Percent Meal Consumed - Breakfast: 100 Percent Meal Consumed - Dinner: 100 Subjective Subjective Patient was seen & assessed and interval progress reviewed with Nursing and social work. Staff report she remains focused on the woman who is now to her daughter's zaid, and her anger at this woman. On my assessment, she perseverates on this woman, and returns to her anger repeatedly despite multiple attempts to redirect her and focus the conversation on herself and things she has some degree of control over. She endorses angry and anxious mood , and repeatedly says she doesn't know how she can manage her anger other than to "hurt her." She denies that she would act on her thoughts because she doesn' t want to go to senior care. She denies SI since admission. Sleep and appetite are good , and she is going to groups, but feels staff "need to tell me what to do, that' s your job." She describes a typical day as cleaning her house, taking her daughter to appointments, attending her own appointments, and shopping ( groceries or for fun). She cannot think of anything she does for fun, other than shopping. She does have some friends whom she sees 1-2 a month, for dinner or a movie. She does not work and is on disability for "depression, anxiety, and bipolar." Summary of Past History [facility] records reviewed: Initial evaluation with NILSON Torres on 04/09/18. Patient reported seeing Dr. Guillen for the past 2 years for depression and anxiety, but had been discharged from the practice, and had been off medications x 2 months (most recently gabapentin, paroxetine, alprazolam, quetiapine, and other she could not recall). She reported depressive symptoms with a positive neurovegetative profile. She also reported anxiety and racing thoughts centered around her daughter's leaving her and then marrying the daughter's best friend. She endorsed thoughts of hurting this woman. She denied manic symptoms but later reported manic symptoms, and was a poor historian. She also endorsed anger problems. She was diagnosed with bipolar disorder, current episode depressed, YING, and PTSD, and started on quetiapine 100 mg daily. Medication Trials Include but not limited to: Quetiapine Paroxetine Fluoxetine Bupropion [place] Gabapentin Alprazolam Physical Exam Mental Examination Overweight WF appearing her stated age. Casually dressed, good grooming and hygiene. Seated in NAD. Good EC, no abnormal movements, cooperative with interview. Mood is "anxious" and affect is depressed and anxious. Speech is loud at times, interrupting. Thoughts are perseverative, focused on woman she is angry at. Endorses thougths of harming her, but denies SI, AVH and paranoia. + cognitive distortions, negative fantasies. Alert and oriented. Limited insight and judgment. Vital Signs (Past 24 Hours) Last Vital Signs Temp 36.5 C 04/11/18 06:23 Pulse 88 04/11/18 06:23 Resp 18 04/11/18 06:23 BP 129/81 04/11/18 06:23 Pulse Ox 99 04/09/18 19:25 Results & Data Laboratory Results Laboratory Results - last 24 hr 04/11/18 09:20 Hepatitis C Antibody Neg Current Inpatient Medications Current Inpatient Medications: Current Inpatient Medications Acetaminophen (Tylenol) 650 mg PO Q4H PRN PRN Reason: Headache or Minor Fever Stop: 05/09/18 17:01 Al Hydrox/Mg Hydrox/Simethicone (Maalox) 30 ml PO Q4H PRN PRN Reason: GI Upset Stop: 05/09/18 17:01 Last Admin: 04/10/18 06:46 Dose: 30 ml Bismuth Subsalicylate (Kaopectate) 15 ml PO PRN PRN PRN Reason: Loose Stool Stop: 05/09/18 17:01 Divalproex Sodium (Depakote Extended Release) 500 mg PO HS JASON; Taper Stop: 05/12/18 21:59 Last Admin: 04/10/18 21:31 Dose: 500 mg Gabapentin (Neurontin) 300 mg PO TID JASON Stop: 05/10/18 13:59 Last Admin: 04/11/18 08:57 Dose: 300 mg Hydroxyzine HCl (Vistaril) 25 mg PO Q4H PRN PRN Reason: Anxiety Stop: 05/09/18 17:01 Hydroxyzine HCl (Vistaril) 50 mg PO HSZ PRN PRN Reason: Insomnia Stop: 05/09/18 17:01 Last Admin: 04/09/18 21:11 Dose: 50 mg Magnesium Hydroxide (Milk Of Magnesia) 30 ml PO DAILY PRN PRN Reason: Heartburn Stop: 05/09/18 17:01 Nicotine Polacrilex (Nicorette 2mg) 1 piece MT PRN PRN PRN Reason: nicotine withdrawal Stop: 05/10/18 10:42 Sodium Chloride ([place] Nasal) 1 - 2 sprays NA PRN PRN PRN Reason: Nasal Dryness/Congestion Stop: 05/09/18 17:01 Post Discharge Appointments Primary Care Physician Name Of Family Doctor: HUANG [facility] Primary Care Provider Appointment Comment: [address] [place] [id number] Psychiatrist Name of Psychiatrist: Lindsay [facility] Psychiatrist's Date of Appointment with Psychiatrist: 04/16/18 Time of Appointment with Psychiatrist: 10am Psychiatric Appointment Comment: [id number] [id number] Therapist Name of Therapist: Jase [facility] Therapist's Therapy Appointment Comment: [address] [facility] [id number] [employer] Name of Supervisor Plate Forming: Kevin PERDOMO Phone Number for Supervisor [employer]ing: [phone] Date of Appointment with Supervisor Plate Forming: 04/15/18 Time of Appointment with Supervisor Plate Forming: 8:45am CPT Code CPT Code 15690
[2018-04-11] MEDS: DIVALPROEX EXTENDED RELEASE 500 MG TAB PO SCH (21:17)
[2018-04-12] MEDS: GABAPENTIN 300 MG CAP PO SCH ×3 (08:36→21:18)
--- NOTE | 2018-04-12 11:21 | Psychiatric Progress Note ---
Date of Service April 12, 2018 Impression / Recommendations Impression 63-year-old female with bipolar disorder who was admitted to our unit voluntarily with suicidality and homicidality. She has been off of her medicines for 2 months and saw a new PA at [facility] on the day of admission, who prescribed her Seroquel. She reported that none of her past medications had been significantly helpful, but as she had never had a trial of Depakote, it was started to target mood swings, anger and irritability. Gabapentin was started for anxiety and irritability. Today, the patient tells me that she is no longer having intrusive thoughts of harming her children's stepmother (her daughter's former best friend), and she also reports that she is not having any thoughts of harming herself. She has that she feels that she is coming out of the depression, and is feeling "much better." I was unable to elicit a history of manic or hypomanic symptoms, and the patient tells me that her psychiatric problem has been limited to recurrent episodes of depression, with periods of interepisode recovery. She has been started on a mood stabilizer (valproic acid ) and tells me that she has responded favorably to paroxetine and dosages that have ranged from between 30 and 60 mg daily. She also tells me that Seroquel ( quetiapine) has been helpful in the past, primarily for sleep. However, she tells me that hydroxyzine, given her in the hospital, has been equally effective in inducing sleep. The patient tells me that she does not feel " quite ready" to leave the hospital today, and I note that her reported improvement today seems somewhat precipitous. I would like to start the patient back on fluoxetine 30 mg daily. The patient tells me that her goal is to be discharged "by Sunday" so that she can hold [employer] party and "root for the [place]." I do not find that the patient is currently a suicidal or homicidal risk. I also see no reason why she should not be able to have visits with her grandchildren. My understanding is that these visits will be supervised, and I was impressed by the fact that the patient spontaneously assured me that she knew that it would be unfair to the children for her to say anything about the animosity that she feels towards their stepmother. (1) Bipolar disorder: 04/10/18 - Restart Gabapentin 300 mg TID - Trial Depakote ER 500 mg HS X 1, 1000 mg HS X 1 then 1500 mg HS with level after 5 days - Obtain records from providers and inpatient stays - Family meeting if indicated - Duty to warn daughter's ex best friend against whom patient made homicidal statements - q 15 min checks for safety - Encourage participation in group and individual counseling - Assist the patient to explore healthy coping strategies - Will DC MNPR, as patient denies ideas to hurt anyone else and even now doesn't want to hurt daughter's ex best friend 04/11/18 - Continue current meds - Depakote titration (trough level ordered for at 8pm). - FM with daughter today. - Staff attempting to contact Sandie Parrish regarding the duty to warn her of patient's threats. If unable to obtain her contact information from the patient or her daughter, police will need to be contacted to discharge the duty to warn. 04/12/18 -Continue Depakote titration. -Add paroxetine 30 mg daily. The patient does carry a diagnosis of bipolar disorder, but her history in that regard is not particularly convincing. Further, the patient is now on a mood stabilizer, and she tells me that over the years her "main problem" has been depression and monitor continue to monitor her. -The patient is denying suicidal ideation, is future oriented, and does not appear to be at any imminent risk for self-harm. -The patient is also denying homicidal thoughts, tells me that she has put her anger towards her grandchildren's stepmother/daughter's former best friend and perspective and tells me that she feels that there is "plenty of blame to go around." She also insists that the thoughts that she had been having were alien to her and were inconsistent with her sense of the kind of person she has. She also emphasized that she never had any intent to follow through on the thoughts. The patient has, "yes, I was thinking that somebody ought to kick her ass, but I am not the person to do that." I do not see her as a current homicidal risk. (2) Tobacco use disorder: 04/10 - Will order nicorette gum. Patient declines use of the patch (3) GERD (gastroesophageal reflux disease): 04/10 - Hx of being on PPI. Will order protonix (4) Dyslipidemia: 04/10 - History of having been on Atorvastatin - Will clarify with Candi Moreno's office Inventory Assets Strengths: Love of family, does not abuse substances Needs: Healthy coping strategies, medication compliance Risk Factors Assessment Male: No : Yes Do You Have Access To A Gun?: No Health Problems: Yes Mental Health Diagnoses: Yes Substance Use Disorders: No Previous Attempt: No (Today, the patient tells me that while she has had thought of suicide in the past she has not made any attempts.) Family History of Suicide: No Previous Psychiatric Hospitalization: Yes Hopelessness: No Smoker: Yes Protective Factors Assessment : No () Responsible for Young Children: No Employed: No Stable Relationships: No Good Rapport with Provider: Yes Interval History Identifying Information RIVERA IBRAHIM is a 63-year-old F, currently in treatment with [facility] for diagnosis of bipolar disorder, who presented to the ED with complaints of suicidal and homicidal ideation, having been off of her meds for 2 months. She is admitted voluntarily. Information is gathered from the patient, and OP records, and considered to be reliable. Chief Complaint "Depression, I guess". Review of Systems Sleep Information Total Hours of Sleep: 8.25 Sleep Comments: awake at 0500-requested food to eat. cereals and milk provided. she was able to fall back to sleep then awakened for am vital signs at 0600. pt. received a dose of vistaril for sleep aid at hs Meal Information Percent Meal Consumed - Breakfast: 100 Percent Meal Consumed - Lunch: 100 Percent Meal Consumed - Dinner: 100 Medication Trials Include but not limited to: Quetiapine Paroxetine Fluoxetine Bupropion [place] Gabapentin Alprazolam Subjective Subjective Patient was seen & assessed and interval progress reviewed with Treatment Team. I saw the patient individually in order to assess her current mental status, hand meat salter her response to treatment, make any necessary changes in the patient's treatment regimen, and address issues and concerns that may arise. Patient reports that she was admitted earlier in the week because of intrusive suicidal and homicidal thoughts. She emphasizes that these thoughts occurred without any actual plan or intent, but she found the thoughts disturbing because they were alien to her and inconsistent with her sense of self. The patient reports that she does not have a history of suicide attempts, and she tells me that she was never actually suicidal. The patient's homicidal thoughts were directed towards a woman, identified as "Annalise," who she tells me he had been her daughter 's best friend "for 30 years." The daughter and her had been having marital difficulties "off and on for years," and during 1 of their separations her 's daughter began a relationship with Annalise (i.e. the daughter's best friend) and eventually Annalise and the patient's daughter's , Yassine, following a divorce from the patient's daughter. The patient's daughter was arrested twice within a 1 month. For driving under the influence of alcohol, and on the second occasion she had HER-2 children in the car with her. The patient went to [facility], and the patient's ex- and his new (Annalise) gained temporary custody of the children. The patient is distressed because she says she has not been allowed to see the children for over a year. She tells me that she realizes that no one person is responsible for the circumstances described above. She tells me that she believes that it was "partly my daughter's fault, partly her 's fault, and partly Annalise's fault." She emphasizes that she never had any actual intent to harm Annalise, but she was very distressed by the fact that she was having homicidal thoughts. The patient carries a diagnosis of bipolar disorder, but today in my office does not endorse any history of manic or hypomanic symptoms. She tells me that she has never had any period in her life during which she experiences increased energy, decreased desire for sleep, impulsive behaviors, such as impulsive sexual or financial behaviors, has never had decreased desire for sleep, and does not describe periods of elated or expansive mood. She does describe feeling irritable, but within the context of depression, and she reports recurrent depressive episodes for much of her adult life. The patient believes that the precipitating factor in her current episode of depression is the fact that her outpatient psychiatrist stopped seeing her and took her off all of her medications approximately two months ago She tells me that she does not understand why he did this, and her report is that she was adherent with everything that the psychiatrist recommended�including laboratory tests and psychological testing. The patient also tells me that the medications that have worked best for her over the years have included Seroquel at bedtime (300 mg), Paxil, and doses that have ranged between 30 and 60 mg daily, and gabapentin 300 mg 3 times a day. Of these medications, the patient tells me that she feels that gabapentin and Paxil of been the most helpful. In the hospital, she reports that without Seroquel she has been sleeping well through the use of hydroxyzine. The patient also tells me that her mood has improved and she feels as if she "just about out of the depression." A concern voiced today is that the fact that she had reported homicidal thoughts during her evaluation, coupled with the fact that the circumstance is being disclosed to the person about whom she was having the thoughts, may somehow interfere with her ability to see her grandchildren under supervision, as planned. She spontaneously told me that she realized that her anger at the children's now stepmother (Annalise) is a "matter for adults. It has nothing to do with children, and so, of course, I would never say anything bad about Annalise to the children." Medication Trials Include but not limited to: Quetiapine Paroxetine Fluoxetine Bupropion [place] Gabapentin Alprazolam Physical Exam Psychiatric Orientation: oriented x 3 Apperance: appropriately dressed Eye Contact: good eye contact Motor Behavior: steady gait and station Speech: normal rate/rhythm/volume of speech The patient is slightly tearful while discussing her daughter's problems and the fact that she has not been able to see her grandchildren for approximately 1 year. However, the patient also smiles appropriately and is fairly animated during most of the encounter. Thought Process: goal directed thought process, linear/logical thought process and clear/coherent thought process Thought Content: reality based without delusions Suicidal Thoughts: denies suicidal thoughts The patient reports that she had no actual suicidal intent, but does acknowledge that she had been having suicidal thoughts. She reports that she has no current suicidal thoughts. The patient is also future oriented. For example, she tells me that she is eager to get out of the hospital because she hopes to go through with her plan to have a [employer] alliance party on Sunday. There is a reference to a past history of at least one attempt, but the patient insists that she has no history of any intentional self injurious behaviors Homicidal Thoughts: denies homicidal thoughts The patient reports that although she did have intrusive thoughts of somehow "hurting" her daughters former friend, she never had any actual plan or intent, and tells me that her distress came from the fact that such thoughts were contrary to her sense of herself. The patient adds that she has not been having homicidal thoughts at all today, and that the thoughts have lessened progressively during the hospitalization. The patient attributes this change to the fact that she has been better able to recognize that her daughter's problems and her grandchildren's situation are not wholely attributable to the woman that had been identified as the target of the homicidal thoughts. Instead , she tells me that there is "plenty of blame to go around: My daughter, [her ex -], and [my daughter's former best friend.] However, she does acknowledge that she still feels somewhat angry because the woman did play a role in the breakup of her daughter's marriage. Hallucinations: no auditory hallucinations Cognition: recent memory grossly intact, remote memory grossly intact and attention grossly intact Estimated Intelligence: + below average estimated intelligence Insight: + limited insight Judgement: + fair judgement The patient recognizes her need for treatment. Vital Signs (Past 24 Hours) Last Vital Signs Temp 36.6 C 04/12/18 06:50 Pulse 94 H 04/12/18 06:52 Resp 16 04/12/18 06:50 BP 134/89 04/12/18 06:52 Pulse Ox 99 04/09/18 19:25 Results & Data Laboratory Results Laboratory Results - last 24 hr 04/11/18 09:20 Hepatitis C Antibody Neg Current Inpatient Medications Current Inpatient Medications: Current Inpatient Medications Acetaminophen (Tylenol) 650 mg PO Q4H PRN PRN Reason: Headache or Minor Fever Stop: 05/09/18 17:01 Al Hydrox/Mg Hydrox/Simethicone (Maalox) 30 ml PO Q4H PRN PRN Reason: GI Upset Stop: 05/09/18 17:01 Last Admin: 04/10/18 06:46 Dose: 30 ml Bismuth Subsalicylate (Kaopectate) 15 ml PO PRN PRN PRN Reason: Loose Stool Stop: 05/09/18 17:01 Divalproex Sodium (Depakote Extended Release) 1,000 mg PO HS JASON; Taper Stop: 05/12/18 21:59 Last Admin: 04/11/18 21:17 Dose: 1,000 mg Gabapentin (Neurontin) 300 mg PO TID JASON Stop: 05/10/18 13:59 Last Admin: 04/12/18 08:36 Dose: 300 mg Hydroxyzine HCl (Vistaril) 25 mg PO Q4H PRN PRN Reason: Anxiety Stop: 05/09/18 17:01 Hydroxyzine HCl (Vistaril) 50 mg PO HSZ PRN PRN Reason: Insomnia Stop: 05/09/18 17:01 Last Admin: 04/11/18 21:19 Dose: 50 mg Magnesium Hydroxide (Milk Of Magnesia) 30 ml PO DAILY PRN PRN Reason: Heartburn Stop: 05/09/18 17:01 Nicotine Polacrilex (Nicorette 2mg) 1 piece MT PRN PRN PRN Reason: nicotine withdrawal Stop: 05/10/18 10:42 Last Admin: 04/11/18 14:42 Dose: 1 piece Sodium Chloride ([place] Nasal) 1 - 2 sprays NA PRN PRN PRN Reason: Nasal Dryness/Congestion Stop: 05/09/18 17:01 Post Discharge Appointments Primary Care Physician Name Of Family Doctor: HUANG Smith [facility] Primary Care Provider Appointment Comment: [address] [place] [address] [place] [address] Psychiatrist Name of Psychiatrist: Lindsay Chairez Psychiatrist's Date of Appointment with Psychiatrist: 04/16/18 Time of Appointment with Psychiatrist: 10am Psychiatric Appointment Comment: [id number] [facility] [id number] Therapist Name of Therapist: Jase Chairez Therapist's Therapy Appointment Comment: [id number] [facility] [address] [address] Name of Road Patcher: Kevin PERDOMO Phone Number for Road Patcher: [phone] Date of Appointment with Road Patcher: 04/15/18 Time of [address] with Road Patcher: 8:45am CPT Code CPT Code 49630
[2018-04-12] MEDS: PARoxetine HCl 10 MG TAB PO SCH (12:09)
[2018-04-12] MEDS: ALUMINUM/MAGNESIUM SUSP 30 ML UDC PO PRN (15:23)
[2018-04-12] MEDS: DIVALPROEX EXTENDED RELEASE 500 MG TAB PO SCH (21:18)
[2018-04-13] MEDS: PARoxetine HCl 10 MG TAB PO SCH (08:40)
[2018-04-13] MEDS: GABAPENTIN 300 MG CAP PO SCH (08:40)
--- NOTE | 2018-04-13 09:25 | Discharge Summary ---
Date of Service April 13, 2018, time spent >30 min in reviewing care, meeting with patient, preparing documentation. History of Present Illness The patient is a 63 yo woman with bipolar disorder, who reports that she has been off of her meds for two months. Apparently she was in treatment with Dr. Guillen, and she perceives that there was a misunderstanding about her appt, and she was discharged from his practice. She says that she was on "11 or 12 medications" and ran out of all of them 2 months ago. Since that time, she has become increasingly irritable to the point of having both suicidal thoughts and homicidal thoughts yesterday, and after being seen at her new providers office ( [facility]), was referred to the hospital. Her primary stress has to do with her family. She has a daughter, whose ex the daughter's best friend of 30 years, which was a big betrayal. The ex and his new have custody of the patient's grandchildren and are interfering with with visitation and with her daughter regaining any element of custody. She says that she was having thoughts to hurt, or according to the ED note, murder the ex's new , but denies that she has acted on these thoughts. Today she remains irritable, but says she doesn't want to hurt herself or anyone else and recognizes that she needs to be back on some medications. She denies that there have been any meds or combination of meds in the past that have been helpful to her. She admits to SI with thoughts to overdose, and thoughts to "punch" the ex's new . She reports that in the last 3 months, her sleep has been "terrible" with both difficulty falling asleep as well as staying asleep, getting on average about 2 hrs sleep per night. Her appetite has been "off" and reports a 12 pound weight loss in the last month. Her energy is "no good" and says that she feels "zapped by everything". Her anxiety is "high" and experiences panic attacks which consist of elevated heart rate and feeling a heaviness in her chest, usually triggered by "not knowing". She denies ever having had auditory or visual hallucinations. She does have some obsessive tendencies including the need for everything to be clean and teacher resource and in its place but denies any compulsions or rituals. Her anger has been a problem long-term and she usually yells or slams things but has never hurt anyone. She denies any self-injurious behaviors. She reports that she has "mood swings" meaning that she goes from being all right to being irritable and depressed. In terms of manic episodes, she reports that she had one several months ago that lasted 2-3 days. She denied euphoric mood but says that "everything was good". Physical Exam Mental Examination I (Dr. Silva) personally met with the patient on the day of discharge. She denied suicidal or homicidal ideation. She has a plan to spend the day with her daughter and is looking forward to the [employer]. She is tolerating her medications without side effects. Staff confirm that duty to warn was carried out. The patient appears calm and pleasant and is requesting discharge today. She is able to verbalize a safety plan and no longer meets criteria for inpatient hospitalization. Appearance: Well Groomed Eye Contact: Maintains Eye Contact Motor Behavior: Unremarkable Speech: Normal Mood: Euthymic Affect: Constricted Thought Process: Linear and Logical Thought Content: Intact Hallucinations: None Insight: Fair Judgement: Fair Vital Signs (Past 24 Hours) Last Vital Signs Temp 36.8 C 04/13/18 06:44 Pulse 96 H 04/13/18 06:45 Resp 16 04/13/18 06:44 BP 127/90 04/13/18 06:45 Pulse Ox 99 04/09/18 19:25 Principal Diagnosis bipolar disorder Psychiatric Data Advance Directives Advance Directives Information Provided: Yes Advance Directives: No Mental Health Advance Directive: No Advance Directives on File: No Living Will: No Power of Wildlife Veterinarian: No Advance Directives Reason:: Declines as Mental Health Visit. Risk Factors Assessment Male: No : Yes Do You Have Access To A Gun?: No Health Problems: Yes Mental Health Diagnoses: Yes Substance Use Disorders: No Family History of Suicide: No Previous Psychiatric Hospitalization: Yes Hopelessness: No Smoker: Yes Protective Factors Assessment : No () Responsible for Young Children: No Employed: No Stable Relationships: No Good Rapport with Provider: Yes Discharge Data Lab Results 04/09/18 04/09/18 04/09/18 13:24 13:24 13:44 WBC 5.25 RBC 5.06 Hgb 13.4 Hct 40.4 MCV 79.8 L MCH 26.5 MCHC 33.2 RDW Std Deviation 48.0 H RDW Coeff of Rosa Maria 16.4 H Plt Count 265 MPV 9.8 Immature Gran % (Auto) 0.4 Neut % (Auto) 50.2 Lymph % (Auto) 40.6 [place] % (Auto) 7.8 Eos % (Auto) 0.8 Baso % (Auto) 0.2 Immature Gran # (Auto) 0.02 Neut # (Auto) 2.64 Lymph # (Auto) 2.13 [place] # (Auto) 0.41 Eos # (Auto) 0.04 Baso # (Auto) 0.01 Sodium Potassium Chloride Carbon Dioxide Anion Gap BUN Creatinine Est Cr Clr Drug Dosing Est GFR ( Amer) Est GFR (Non-Af Amer) BUN/Creatinine Ratio Glucose Calcium Total Bilirubin AST ALT Alkaline Phosphatase Total Protein Albumin Globulin Albumin/Globulin Ratio TSH Urine Color Yellow Urine Appearance Clear Urine pH 5.5 Ur Specific Rough And Ready 1.020 Urine Protein Negative Urine Glucose (UA) Negative Urine Ketones Negative Urine Blood Negative Urine Nitrite Negative Urine Bilirubin Negative Urine Urobilinogen Negative Ur Leukocyte Esterase Negative Salicylates Urine Opiates Screen Neg Ur Methadone, Qual Neg Acetaminophen Urine Barbiturates Neg Ur Phencyclidine (PCP) Neg U Amphetamin/Meth Scrn Neg MDMA (Ecstasy) Screen Neg U Benzodiazepines Scrn Neg Ur Cocaine Metabolite Neg U Marijuana (THC) Screen Neg Ethyl Alcohol mg/dL Hepatitis C Antibody 04/09/18 04/09/18 04/09/18 13:44 13:44 13:44 WBC RBC Hgb Hct MCV MCH MCHC RDW Std Deviation RDW Coeff of Rosa Maria Plt Count MPV Immature Gran % (Auto) Neut % (Auto) Lymph % (Auto) [place] % (Auto) Eos % (Auto) Baso % (Auto) Immature Gran # (Auto) Neut # (Auto) Lymph # (Auto) [place] # (Auto) Eos # (Auto) Baso # (Auto) Sodium 136 Potassium 4.0 Chloride 107 Carbon Dioxide 23 Anion Gap 6.0 BUN 10 Creatinine 0.79 Est Cr Clr Drug Dosing 64.8 Est GFR ( Amer) 93.6 Est GFR (Non-Af Amer) 80.8 BUN/Creatinine Ratio 13.0 Glucose 86 Calcium 9.2 Total Bilirubin 0.4 AST 18 ALT 21 Alkaline Phosphatase 162 H Total Protein 8.1 Albumin 3.8 Globulin 4.3 H Albumin/Globulin Ratio 0.9 TSH 0.880 Urine Color Urine Appearance Urine pH Ur Specific Rough And Ready Urine Protein Urine Glucose (UA) Urine Ketones Urine Blood Urine Nitrite Urine Bilirubin Urine Urobilinogen Ur Leukocyte Esterase Salicylates 3.1 Urine Opiates Screen Ur Methadone, Qual Acetaminophen < 2 L Urine Barbiturates Ur Phencyclidine (PCP) U Amphetamin/Meth Scrn MDMA (Ecstasy) Screen U Benzodiazepines Scrn Ur Cocaine Metabolite U Marijuana (THC) Screen Ethyl Alcohol mg/dL < 3.0 Hepatitis C Antibody 04/11/18 09:20 WBC RBC Hgb Hct MCV MCH MCHC RDW Std Deviation RDW Coeff of Rosa Maria Plt Count MPV Immature Gran % (Auto) Neut % (Auto) Lymph % (Auto) [place] % (Auto) Eos % (Auto) Baso % (Auto) Immature Gran # (Auto) Neut # (Auto) Lymph # (Auto) [place] # (Auto) Eos # (Auto) Baso # (Auto) Sodium Potassium Chloride Carbon Dioxide Anion Gap BUN Creatinine Est Cr Clr Drug Dosing Est GFR ( Amer) Est GFR (Non-Af Amer) BUN/Creatinine Ratio Glucose Calcium Total Bilirubin AST ALT Alkaline Phosphatase Total Protein Albumin Globulin Albumin/Globulin Ratio TSH Urine Color Urine Appearance Urine pH Ur Specific Rough And Ready Urine Protein Urine Glucose (UA) Urine Ketones Urine Blood Urine Nitrite Urine Bilirubin Urine Urobilinogen Ur Leukocyte Esterase Salicylates Urine Opiates Screen Ur Methadone, Qual Acetaminophen Urine Barbiturates Ur Phencyclidine (PCP) U Amphetamin/Meth Scrn MDMA (Ecstasy) Screen U Benzodiazepines Scrn Ur Cocaine Metabolite U Marijuana (THC) Screen Ethyl Alcohol mg/dL Hepatitis C Antibody Neg Hospital Course (1) Bipolar disorder: 04/10/18 - Restart Gabapentin 300 mg TID - Trial Depakote ER 500 mg HS X 1, 1000 mg HS X 1 then 1500 mg HS with level after 5 days - Obtain records from providers and inpatient stays - Family meeting if indicated - Duty to warn daughter's ex best friend against whom patient made homicidal statements - q 15 min checks for safety - Encourage participation in group and individual counseling - Assist the patient to explore healthy coping strategies - Will DC MNPR, as patient denies ideas to hurt anyone else and even now doesn't want to hurt daughter's ex best friend 04/11/18 - Continue current meds - Depakote titration (trough level ordered for at 8pm). - FM with daughter today. - Staff attempting to contact Sandie Parrish regarding the duty to warn her of patient's threats. If unable to obtain her contact information from the patient or her daughter, police will need to be contacted to discharge the duty to warn. 04/12/18 -Continue Depakote titration. -Add paroxetine 30 mg daily. The patient does carry a diagnosis of bipolar disorder, but her history in that regard is not particularly convincing. Further, the patient is now on a mood stabilizer, and she tells me that over the years her "main problem" has been depression and monitor continue to monitor her. -The patient is denying suicidal ideation, is future oriented, and does not appear to be at any imminent risk for self-harm. -The patient is also denying homicidal thoughts, tells me that she has put her anger towards her grandchildren's stepmother/daughter's former best friend and perspective and tells me that she feels that there is "plenty of blame to go around." She also insists that the thoughts that she had been having were alien to her and were inconsistent with her sense of the kind of person she has. She also emphasized that she never had any intent to follow through on the thoughts. The patient has, "yes, I was thinking that somebody ought to kick her ass, but I am not the person to do that." I do not see her as a current homicidal risk. (2) Tobacco use disorder: 04/10 - Will order nicorette gum. Patient declines use of the patch (3) GERD (gastroesophageal reflux disease): 04/10 - Hx of being on PPI. Will order protonix (4) Dyslipidemia: 04/10 - History of having been on Atorvastatin - Will clarify with Candi Moreno's office Post Discharge Appointments Primary Care Physician Name Of Family Doctor: HUANG Smith - [facility] Date of Appointment with PCP: 04/15/18 Time of Appointment with PCP: 3:30pm Provider Appointment Comment: [address] [place] [address] Psychiatrist Name of Psychiatrist: [facility] Date of Appointment with Psychiatrist: 04/18/18 Time of Appointment with Psychiatrist: 11:30 Psychiatric Appointment Comment: [address] [facility] [id number] Therapist Name of Therapist: Jase Al Shayan Chairez Therapist's Date of Therapist Appointment: 06/06/18 Time of Therapist Appointment: 8am Therapy Appointment Comment: you are on the cancelation list for an earlier appointment Senior Functional Analyst Name of Senior Functional Analyst: Kevin PERDOMO Phone Number for Senior Functional Analyst: [phone] Date of Appointment with Senior Functional Analyst: 04/15/18 Time of Appointment with Senior Functional Analyst: 8:45am Contact Information Discharge Discharge Address[address] [address] [place] [address], [address] [address] Discharge Plan Discharge Items Patient Disposition: Home - Self-Care Reason For Visit: BIPOLAR DISORDER Discharge Diagnosis: same Discharge Goals: Improve disease control and Improve function Activity: Resume your previous activity Non-emergency contact: Primary Care Provider, Psychiatrist and Mach[facility] Call non-emergency contact if: your symptoms worsen Diet: Regular Addtl Provider Instructions: SPECIAL CARE INSTRUCTIONS: 1. Follow through with your scheduled aftercare appointments. If unable to keep an appointment, please call to reschedule. 2. Take your medication only as prescribed. Medication should not be changed or stopped without the approval of your doctor. In the event of worsening symptoms or concerns about side effects, contact your doctor immediately. 3. Utilize new healthy coping skills, anger management skills, and stress management skills learned during your hospitalization. Journal feelings and process them with a support person. Identify stressors or situations that may result in relapse, deterioration or inappropriate behaviors and develop a plan to deal with those issues. 4. If your coping skills are ineffective and you are in crisis, contact your outpatient providers for direction. If unable to reach your providers, please call the CAN HELP LINE AT or go to the closest Emergency Room. 5. Avoid alcohol and un-prescribed drugs. 6. You have been provided with the Mental Health Advance Directives Pamphlet for your review. AFTERCARE APPOINTMENTS: * Please call your insurance company prior to your scheduled appointment to confirm your aftercare providers are covered. Take your insurance information to your appointments. WHO TO CALL AND WHEN: � Medical Emergencies:� For questions or emergencies related to your hospital stay, please contact the Inpatient Behavioral Health Unit at [phone]. � A senior clinician is on-call 02/10 for the Behavioral Health Unit for emergencies � At any time you feel your situation is an emergency, you may also call 911 immediately. Your Doctors Instructions noted above were prepared by provider Mahi Silva MD. Prescriptions: New paroxetine HCl 10 mg Tablet 30 mg PO DAILY 7 Days Qty: 21 RF: 0 divalproex 500 mg Tablet Extended Release 24 Hr 1,500 mg PO HS 7 Days Qty: 21 RF: 0 gabapentin 300 mg Capsule 300 mg PO TID 7 Days Qty: 21 RF: 0 Discontinued quetiapine [Seroquel] 100 mg Tablet 100 mg PO QPM RF: 0 Stand-Alone Forms: [facility] Discharge Orders: Discharge Order (Routine); Ordered 04/13/18 Ordered By: Mahi Silva Admission Data Admit Date/Time: 04/09/18 17:02 Attending Provider: Earline Donis Admit Provider: Earline Donis Primary Care Provider: Candi Moreno Service: Psychiatry Other Interventions: PSY Interdisciplinary Discharge Planning Last Done: 04/12/18 13:28 Pending Studies at Discharge: No
== END 2018-04-13 11:00 | disposition home or self-care (01) | DRG 885 ==
LOC: ED 13:02 → 3S 17:02

== ENCOUNTER 2019-10-31 10:18 | Inpatient (IN) ==
[2019-10-31] MEDS ORDERED: IBUPROFEN 200 MG TAB PO STA (10:42)
[2019-10-31] MEDS ORDERED: ACETAMINOPHEN 325 MG TAB PO STA (10:42)
--- NOTE | 2019-10-31 10:53 | Emergency Department Note ---
Impression & Plan Popliteal artery embolus, Pain of right calf, Encounter for smoking cessation counseling ED Provider Note NAME: RIVERA IBRAHIM AGE: 64 SEX: F : 1955 ARRIVES VIA: Walk-In INFORMANT: Patient, ED PROVIDER(S): Erasto Arcos MD Chief Complaint: Calf pain HPI: States that she developed right sided calf pain last night. Patient states it is been constant. The patient describes it as sharp and achy. Patient did not take anything prior to arrival. The patient states is worse with palpation. Nothing has relieved her symptoms with the exception of rest or not bearing weight. The patient denies any recent trauma or overuse of her lower extremities. Patient is a smoker but denies any history of DVT or PE. The patient denies shortness of breath chest pains. Patient denies cough, fevers, chills, shortness of breath, or loss of taste or smell. ROS: See HPI for pertinent positives and negatives. A total of 10 systems were reviewed and otherwise negative. Past medical history: See below Surgical history: See below Social history: See below Physical Exam: GENERAL: Wearing a mask. NAD, non-toxic. EYE EXAM: Normal conjunctiva. PERRL, no anisocoria and EOM's grossly intact w/o pain. NECK: Supple, no nuchal rigidity, no adenopathy, non-tender. No signs of meningismus. Chest: Device in left chest. LUNGS: Clear to auscultation. Normal chest wall mechanics. HEART: NSR, no MRG. ABDOMEN: Abdomen soft, non-tender, normo-active bowel sounds, no masses, no rebound or guarding. BACK: No CVA TTP. SKIN: No rashes and no bruising. UPPER EXTREMITIES: Upper extremities are grossly normal. LOWER EXTREMITIES: Mild pain to the right posterior calf without obvious erythema, positive Homans sign, good DP pulse no crepitus no obvious deformity. NEURO EXAM: A&O x3, cranial nerves II-XII grossly intact, normal speech, moves all 4 extremities on command w/o issue. Differential diagnoses: DVT, musculoskeletal, infection, joint effusion, trauma, lymphedema, idiopathic, CHF, as well as other pathologies. Course: Patient was seen and evaluated the bedside. Full history physical exam was pe rformed. EKG: None Imaging Studies: Radiology results as stated below per my review in the radiologist's interpretation: US venous doppler LE RT CLINICAL HISTORY: Right calf pain COMPARISON STUDY: No previous studies for comparison. FINDINGS: Real-time and color flow Doppler imaging were performed. Flow was seen within the femoral, popliteal and calf veins with no intraluminal thrombus d emonstrated. The saphenous vein is patent. There is a nonocclusive thrombus/embolus within the proximal right popliteal artery IMPRESSION: 1. No evidence of right lower extremity DVT 2. Nonocclusive thrombus/embolism within the right popliteal artery ACT 112: Negative or not required by law. Electronically signed by: Jose Enrique Wang M.D. 10/31/2019 12:18 PM Dictated: 10/31/197 Transcribed: 10/31/191216 RIGHT LOWER EXTREMITY ARTERIAL DOPPLER ULTRASOUND CLINICAL HISTORY: popliteal thrombus COMPARISON STUDY: No previous studies for comparison. TECHNIQUE: Bilateral ankle to brachial indices were obtained. Grayscale, color and duplex Doppler sonography of the arterial systems of both lower extremities was performed. FINDINGS: Right ankle to brachial index measured 1.14 when using posterior tibial artery and 1.05 using the dorsalis pedis. The left measures 1.1 using p osterior tibial artery 1.08 when using the dorsalis pedis. There is triphasic flow throughout the right lower extremity. Note is made of a 2.2 x 0.4 cm cm intraluminal abnormality within the right popliteal artery with movement noted during real-time imaging. No additional abnormalities are identified on this examination. IMPRESSION: 1. 2.2 x 0.4 cm intraluminal abnormality within the right popliteal artery which could reflect an embolus or unstable thrombus. This may be at risk for distal e mbolization. 2. Otherwise, unremarkable right lower extremity arterial Doppler ultrasound. Normal bilateral ankle to brachial indices. ACT 112: Positive. There are findings on this exam that require communication between the performing entity and the patient following Patient Test Result Information Act ([place] Act 112) guidelines. Electronically signed by: Zach Mancia M.D. 10/31/2019 2:31 PM Dictated: 10/31/19 142 Transcribed: 10/31/191421 Cardiac monitoring: An order was placed for continuous cardiac monitoring. The monitor shows a rate of [] with [] rhythm. MDM: Patient was seen due to concern for calf pains. Blood work was obtained the patient was given Motrin Tylenol and the patient did have a DVT ultrasound completed. Patient's blood with a normal white count H&H and platelet count. Kidney function is unremarkable. Ultrasound does not show any evidence of DVT but does have a nonocclusive popliteal clot. Patient was still having pain so additional pain medication was given. I did order an arterial Doppler and ABIs. Upon reassessment the patient still has good DP pulse. The patient's arterial Doppler does show the possibility of unstable thrombus versus embolus nonocclusive with normal ABIs. I did speak with the on-call vascular service alignment are checked and recommended heparinization and then likely switching to a DOAC. I did discuss as we do not have a vascular interventionalist if there were any additional recommendations. She did state that if the leg does develop worsening pain or signs of ischemia, the may benefit from transfer. I did convey this to the on-call hospitalist. Patient was ordered for heparin. Critical Care: I have personally spent 45 minutes of critical care time in direct management of this patient. This includes bedside care, interpretation of diagnostic studies, and testing, discussion with consultants, patient, and family members, and other require inpatient management activities. This 45 minutes is in excess of all separately billable procedures. Past Med/Surg History Medical History Anxiety Mayen's esophagus without dysplasia Benign essential hypertension Bipolar disorder Depression Dyslipidemia Gross hematuria Hiatal hernia Hiatal hernia Hydronephrosis of left kidney Hypertension Irregular heart rate prior to pacemaker Kidney stone hx of Lumbar radicular pain Mood disorder Nausea and vomiting after administration of anesthetic agent Nephrolithiasis Pacemaker @ [facility] 2006; replaced in 06/2016 [employer] follows with Dr. Orozco Palpitations Presence of cardiac pacemaker PTSD (post-traumatic stress disorder) Recurrent cold sores Renal colic Tobacco use disorder Surgical History History of bilateral tubal ligation History of cholecystectomy History of colonoscopy History of cystoscopy with stent placement History of dilatation and curettage History of esophagogastroduodenoscopy (EGD) History of lithotripsy x2 History of Gurwinder fundoplication 09/2018 at [facility] History of tooth extraction all teeth removed History of total hysterectomy with bilateral salpingo-oophorectomy (BSO) Family History Father Prostate cancer Other Myocardial infarction No family history of adverse response to anesthesia Denies family history of Ovarian cancer Breast cancer Colorectal cancer Social History Smoking Status: Current every day smoker Tobacco Type: Cigarettes Age Started Using Tobacco: 52; packs per day: 0.25; Cigarettes Per Day: 6 a day; Second Hand Exposure: Yes (daughter smokes); Hx Alcohol Use: No Hx Substance Use: No Preferred Language: Egyptian Communication Ability: Effective Visual Impairment: No Limitations Hearing Ability: Normal Stud Master/Mistress Required: No Beliefs That Will Affect Care: None Current Living Situation: Family Current Living Situation Comment: Lives with daughter Feels Safe at Home: Yes Allergies Allergies Allergy/AdvReac Type Severity Reaction Status Date / Time morphine Allergy Severe SHORTNESS Verified 10/31/19 10:43 OF BREATH Bactrim Allergy Intermediate Itching Verified 10/02/17 09:54 Sulfa (Sulfonamide Allergy Intermediate ITCHY Verified 10/31/19 10:43 Antibiotics) sulfamethoxazole Allergy Intermediate Itching Verified 10/31/19 10:43 trimethoprim Allergy Intermediate Itching Verified 10/31/19 10:43 doxycycline Allergy Mild RED WELTS Verified 10/31/19 10:43 chlorpromazine Allergy Unknown . Verified 10/31/19 10:43 [From Thorazine] codeine AdvReac Mild VOMITING Verified 10/31/19 10:43 hydrocodone AdvReac Mild Vomiting Verified 10/31/19 10:43 Penicillins AdvReac Mild VOMITING Verified 10/31/19 10:43 Home Meds Home Medications Medication Instructions Recorded Confirmed gabapentin 300 mg capsule 300 mg PO TID #90 cap 12/03/18 10/31/19 pantoprazole 40 mg PO QAM 01/21/19 10/31/19 paroxetine HCl 40 mg tablet 40 mg PO DAILY 09/17/19 10/31/19 quetiapine [Seroquel] 200 mg PO HS 10/31/19 10/31/19 Previous Rx's Medication Instructions Recorded propranolol 10 mg tablet 10 mg PO BID #60 tab 07/01/19 ondansetron HCl 4 mg tablet 4 mg PO QID PRN #60 tab 09/04/19 Results & Data (ED) Vital Signs Vital Signs - 24 hr 10/31/19 10:25 10/31/19 11:19 10/31/19 13:08 Temperature 36.9 C Temperature Source Oral Pulse Rate 97 H Pulse Rate [Left Finger] 84 80 Pulse Rate from SpO2 Sensor Pulse Rhythm Regular Pulse Strength Normal Respiratory Rate 18 18 18 Respiratory Effort / Characteristics Non-Labored Spontaneous Non-Labored Spontaneous Non-Labored Respiratory Depth Normal Normal Normal Respiratory Pattern Regular Blood Pressure 165/95 H Blood Pressure [Left Arm] 130/85 146/88 H Blood Pressure Mean 118 Blood Pressure Mean [Left Arm] 100 107 Blood Pressure Position Sitting Blood Pressure Position [Left Arm] Sitting Pulse Oximetry 97 94 93 Oxygen Delivery Method Room Air Room Air Room Air Sepsis Recent Fever Within 48 Hours No Sepsis New/Unexplained Change in Mental Status N/A Sepsis Action Taken by Nursing No Action Required 10/31/19 14:51 10/31/19 15:30 10/31/19 16:00 Temperature Temperature Source Pulse Rate 74 74 Pulse Rate [Left Finger] 80 Pulse Rate from SpO2 Sensor 74 75 Pulse Rhythm Pulse Strength Respiratory Rate 20 20 21 Respiratory Effort / Characteristics Non-Labored Spontaneous Respiratory Depth Normal Respiratory Pattern Blood Pressure 150/101 H 158/100 H Blood Pressure [Left Arm] 146/99 H Blood Pressure Mean 121 108 Blood Pressure Mean [Left Arm] 114 Blood Pressure Position Blood Pressure Position [Left Arm] Pulse Oximetry 96 97 95 Oxygen Delivery Method Room Air Room Air Room Air Sepsis Recent Fever Within 48 Hours Sepsis New/Unexplained Change in Mental Status Sepsis Action Taken by Intermediate Medications Current Medication List: was personally reviewed by me Laboratory Data Attestation: I reviewed the patient's lab results. Result diagrams: 10/31/19 11:16 10/31/19 11:22 Lab Results 10/31/19 10/31/19 10/31/19 Range/Units 11:16 11:22 12:51 WBC 5.92 (4.8-10.8) K/uL RBC 4.81 (4.2-5.4) M/uL Hgb 14.0 (12.0-16.0) g/dL Hct 41.3 (37-47) % MCV 85.9 (80-100) fL MCH 29.1 (25-34) pg MCHC 33.9 (32-36) g/dL RDW Std Deviation 40.1 (36.4-46.3) fL RDW Coeff of Rosa Maria 12.7 (11.5-14.5) % Plt Count 214 (130-400) K/uL MPV 10.0 (7.4-10.4) fL Immature Gran % (Auto) 0.2 % Neut % (Auto) 66.2 % Lymph % (Auto) 26.0 % [place] % (Auto) 6.4 % Eos % (Auto) 1.0 % Baso % (Auto) 0.2 % Neut # (Auto) 3.92 (1.4-6.5) K/uL Lymph # (Auto) 1.54 (1.2-3.4) K/uL [place] # (Auto) 0.38 (0.11-0.59) K/uL Eos # (Auto) 0.06 (0-0.5) K/uL Baso # (Auto) 0.01 (0-0.2) K/uL Immature Gran # (Auto) 0.01 (0.00-0.02) K/uL PT 10.9 (9.0-12.0) Seconds INR 1.0 (0.9-1.1) APTT 44.3 H (21.0-31.0) Seconds PTT Ratio 1.6 Sodium 140 (136-145) mmol/L Potassium 4.3 (3.5-5.1) mmol/L Chloride 109 H (98-107) mmol/L Carbon Dioxide 26 (21-32) mmol/L Anion Gap 5.0 (3-11) BUN 9 (7-18) mg/dl Creatinine 0.82 (0.6-1.2) mg/dl Est Cr Clr Drug Dosing 62.5 ml/min Est GFR ( Amer) 88.9 Est GFR (Non-Af Amer) 76.7 BUN/Creatinine Ratio 10.6 (10-20) Glucose 96 (70-99) mg/dl Calcium 9.3 (8.5-10.1) mg/dl Specimen Hemolysis Administered Medications Heparin Sodium/Dextrose (Heparin Sodium/Dextrose) 25,000 units in 500 mls @ 20 mls/hr IV .Q24H [facility]; Protocol Stop: 11/30/19 14:44 Last Admin: 08/21/20 16:00 Dose: 1,000 units/hr, 20 mls/hr Documented by: [id number] Cosigned by: [id number] Discontinued Medications Acetaminophen (Acetaminophen 325 Mg Tab) 650 mg PO NOW STA Stop: 10/31/19 10:43 Last Admin: 10/31/19 11:41 Dose: 650 mg Documented by: [id number] Fentanyl Citrate (Fentanyl Citrate 100 Mcg/2 Ml Vial) 50 mcg IV NOW STA Stop: 10/31/19 12:50 Last Admin: 10/31/19 12:56 Dose: 50 mcg Documented by: [id number] Heparin Sodium (Porcine) (Heparin Sod (Porcine) 1000 Unit/Ml 10 Ml Vial) Confirm Administered Dose 10,000 units .ROUTE .STK-MED ONE Stop: 10/31/19 15:30 Last Admin: 10/31/19 16:00 Dose: 4,000 units Documented by: [id number] Cosigned by: [id number] Ibuprofen (Ibuprofen 200 Mg Tab) 400 mg PO NOW STA Stop: 10/31/19 10:43 Last Admin: 10/31/19 11:41 Dose: 400 mg Documented by: [id number] Ioversol (Optiray 320 125ml) 120 ml IV ONCE ONE Stop: 10/31/19 15:49 Last Admin: 10/31/19 15:48 Dose: 120 ml Documented by: [id number] Discharge Plan Visit Data Chief Complaint: Leg Injury/Pain Stated Complaint: RIGHT LEG PAIN ED Provider: Erasto Arcos Discharge Problem: Popliteal artery embolus, Pain of right calf, Encounter for smoking cessation counseling Forms Stand Alone Forms: [facility] Prescriptions Prescriptions: No Action gabapentin 300 mg capsule 300 mg PO TID Qty: 90 RF: 0 propranolol 10 mg tablet 10 mg PO BID Qty: 60 RF: 2 ondansetron HCl [Zofran] 4 mg tablet 4 mg PO QID PRN (Reason: Nausea) Qty: 60 RF: 3 paroxetine HCl [Paxil] 40 mg tablet 40 mg PO DAILY RF: 0 quetiapine [Seroquel] 100 mg tablet 200 mg PO HS RF: 0 pantoprazole 40 mg tablet,delayed release (DR/EC) 40 mg PO QAM RF: 0
[2019-10-31 12:00] LABS: Basophils # (auto) 0.01 K/uL (0-0.2); Basophils % (auto) 0.2 %; Eosinophils # (auto) 0.06 K/uL (0-0.5); Hematocrit (blood only) 41.3 % (37-47); Immature Granulocytes # (auto) 0.01 K/uL (0.00-0.02); Immature Granulocytes % (auto) 0.2 %; Lymphocytes # (auto) 1.54 K/uL (1.2-3.4); Mean Corpuscular Hemoglobin 29.1 pg (25-34); Mean Corpuscular Hgb Conc 33.9 g/dL (32-36); Mean Corpuscular Volume 85.9 fL (80-100); Monocytes # (auto) 0.38 K/uL (0.11-0.59); Monocytes % (auto) 6.4 %; Neutrophils # (auto) 3.92 K/uL (1.4-6.5); Neutrophils % (auto) 66.2 %; Platelet Count 214 K/uL (130-400); RDW Coefficient of Variation 12.7 % (11.5-14.5); RDW Standard Deviation 40.1 fL (36.4-46.3); Red Blood Count 4.81 M/uL (4.2-5.4); White Blood Count 5.92 K/uL (4.8-10.8)
[2019-10-31 12:11] LABS: BUN Creatinine Ratio 10.6 (10-20); Calcium 9.3 mg/dl (8.5-10.1); Creatinine Clr Calc Pharmacy 62.5 ml/min; Est GFR (African American) 88.9; Est GFR (Non-African American) 76.7; Potassium 4.3 mmol/L (3.5-5.1)
--- NOTE | 2019-10-31 12:20 | Ultrasound Report ---
US venous doppler LE RT CLINICAL HISTORY: Right calf pain COMPARISON STUDY: No previous studies for comparison. FINDINGS: Real-time and color flow Doppler imaging were performed. Flow was seen within the femoral, popliteal and calf veins with no intraluminal thrombus demonstrated. The saphenous vein is patent. There is a nonocclusive thrombus/embolus within the proximal right popliteal artery IMPRESSION: 1. No evidence of right lower extremity DVT 2. Nonocclusive thrombus/embolism within the right popliteal artery ACT 112: Negative or not required by law. Electronically signed by: Jose Enrique Wang M.D. 10/31/2019 12:18 PM
[2019-10-31] MEDS ORDERED: fentaNYL citrate 100 MCG/2 ML VIAL IV STA (12:49)
--- NOTE | 2019-10-31 14:33 | Ultrasound Report ---
RIGHT LOWER EXTREMITY ARTERIAL DOPPLER ULTRASOUND CLINICAL HISTORY: popliteal thrombus COMPARISON STUDY: No previous studies for comparison. TECHNIQUE: Bilateral ankle to brachial indices were obtained. Grayscale, color and duplex Doppler son ography of the arterial systems of both lower extremities was performed. FINDINGS: Right ankle to brachial index measured 1.14 when using posterior tibial artery and 1.05 usi ng the dorsalis pedis. The left measures 1.1 using posterior tibial artery 1.08 when using the dorsal is pedis. There is triphasic flow throughout the right lower extremity. Note is made of a 2.2 x 0.4 c m cm intraluminal abnormality within the right popliteal artery with movement noted during real-time imaging. No additional abnormalities are identified on this examination. IMPRESSION: 1. 2.2 x 0.4 cm intraluminal abnormality within the right popliteal artery which could reflect an emb olus or unstable thrombus. This may be at risk for distal embolization. 2. Otherwise, unremarkable right lower extremity arterial Doppler ultrasound. Normal bilateral ankle to brachial indices. ACT 112: Positive. There are findings on this exam that require communication between the performing entity and the patient following Patient Test Result Information Act ([place] Act 112) guidelines. Electronically signed by: Zach Mancia M.D. 10/31/2019 2:31 PM
[2019-10-31] MEDS ORDERED: HEPARIN SOD (PORCINE) 1000 UNIT/ML 10 ML VIAL ONE (15:29)
--- NOTE | 2019-10-31 15:41 | History & Physical Report ---
Date of Service October 31, 2019 Assessment & Plan (1) Popliteal artery embolus: Acute popliteal artery thrombus versus embolus. Hypercoagulable state with smoking but no other personal or family history to suggest further work-up for hypercoagulable state required. Likely mechanically induced when she she crosses her legs. TTE to assess for left ventricular thrombus. IV heparin drip standard with bolus Consult vascular surgery (2) Postprandial epigastric pain: Ongoing for 2 months. She came to the ER 1 week ago for this but did not stay due to a long wait time. Progressively getting worse. No effective Maalox or Pepto-Bismol and pain occurs 20 minutes after eating therefore not suggestive of gastritis. She is due to see her wet milling wheel operator next week. In light of acute thrombus in her right popliteal artery will get CTA abdomen p naa to assess for celiac versus SMA thrombus/stenosis. Since we are starting heparin drip should be done presently as may resolve with heparin and will possibly change duration and further investigations given her thrombus/embolus no popliteal artery was likely induced somewhat mechanically, whereas a celiac artery or SMA thrombus/embolus will suggest an overall hypercoagulable state versus emboli from the heart. CT angio abdomen pelvis with IV contrast Will place diet order when she has had this (3) Hypertension: Continue propranolol 10 mg p.o. twice daily (4) Tobacco use disorder: Discussed smoking cessation. Advised not to switch to vaping which was her previous plan. Continue nicotine replacement with 21 mg patch. (5) Bipolar disorder: Continue paroxetine 40 mg p.o. daily, gabapentin 300 mg p.o. 3 times daily, quetiapine 200 mg p.o. at bedtime (6) Anxiety: As above (7) DVT prophylaxis: Intravenous heparin drip as above Admission and Anticipated Discharge Date Admission Date: 10/30/2019 History of Present Illness Chief Complaint: Acute right leg pain Primary Care Provider: HUANG Pope Josseline Sorto is a 64-year-old female who presents to the ER with acute onset right leg pain that started at 9 PM last night. This occurred while sitting down with her legs crossed. She routinely crosses her right leg on top of her left while sitting down. She started having itching sensation in her right lateral foot which turned into a pain suddenly became a lot worse quickly in the back of her calf and she has been unable to walk on this leg since. No radiation. Severity 12/19. She is trying to give up smoking but currently on half pack of cigarettes a day. In addition to this she uses a nicotine patch 21 mg. In the ER initial concern for DVT which was negative however incidentally noted thrombus in right peroneal artery which would explain her symptoms. Dr Arcos discussed with vascular surgery and advised inpatient admission with IV heparin drip with possible transition to DOAC tomorrow. Medicine consulted for admission. The patient denies any family history of autoimmune conditions, deep vein thromb osis or arterial thrombosis. She has a pacemaker placed for sinus node dysfunction but no known atrial fibrillation. Allergies Allergy/AdvReac Type Severity Reaction Status Date / Time morphine Allergy Severe SHORTNESS Verified 10/31/19 10:43 OF BREATH Bactrim Allergy Intermediate Itching Verified 10/02/17 09:54 Sulfa (Sulfonamide Allergy Intermediate ITCHY Verified 10/31/19 10:43 Antibiotics) sulfamethoxazole Allergy Intermediate Itching Verified 10/31/19 10:43 trimethoprim Allergy Intermediate Itching Verified 10/31/19 10:43 doxycycline Allergy Mild RED WELTS Verified 10/31/19 10:43 chlorpromazine Allergy Unknown . Verified 10/31/19 10:43 [From Thorazine] codeine AdvReac Mild VOMITING Verified 10/31/19 10:43 hydrocodone AdvReac Mild Vomiting Verified 10/31/19 10:43 Penicillins AdvReac Mild VOMITING Verified 10/31/19 10:43 Home Medications Home Medications Medication Instructions Recorded Confirmed Type gabapentin 300 mg capsule 300 mg PO TID #90 cap 12/03/18 10/31/19 History pantoprazole 40 mg PO QAM 01/21/19 10/31/19 History propranolol 10 mg tablet 10 mg PO BID #60 tab 07/01/19 10/31/19 Rx ondansetron HCl 4 mg tablet 4 mg PO QID PRN #60 tab 09/04/19 10/31/19 Rx paroxetine HCl 40 mg tablet 40 mg PO DAILY 09/17/19 10/31/19 History quetiapine [Seroquel] 200 mg PO HS 10/31/19 10/31/19 History Past Med/Surg History Medical History Anxiety Mayen's esophagus without dysplasia Benign essential hypertension Bipolar disorder Depression Dyslipidemia Gross hematuria Hiatal hernia Hiatal hernia Hydronephrosis of left kidney Hypertension Irregular heart rate prior to pacemaker Kidney stone hx of Lumbar radicular pain Mood disorder Nausea and vomiting after administration of anesthetic agent Nephrolithiasis Pacemaker @ [facility] 2006; replaced in 06/[address] [facility] [address] Orozco Palpitations Presence of cardiac pacemaker PTSD (post-traumatic stress disorder) Recurrent cold sores Renal colic Tobacco use disorder Surgical History History of bilateral tubal ligation History of cholecystectomy History of colonoscopy History of cystoscopy with stent placement History of dilatation and curettage History of esophagogastroduodenoscopy (EGD) History of lithotripsy x2 History of Gurwinder fundoplication 09/2018 at [facility] History of tooth extraction all teeth removed History of total hysterectomy with bilateral salpingo-oophorectomy (BSO) Family History Father Prostate cancer Other Myocardial infarction No family history of adverse response to anesthesia Denies family history of Ovarian cancer Breast cancer Colorectal cancer Social History Smoking Status: Current every day smoker Tobacco Type: Cigarettes Age Started Using Tobacco: 52; packs per day: 0.25; Cigarettes Per Day: 6 a day; Second Hand Exposure: Yes (daughter smokes); Hx Alcohol Use: No Hx Substance Use: No Preferred Language: [place] Communication Ability: Effective Visual Impairment: No Limitations Hearing Ability: Normal Deputy Attorney General Required: No Beliefs That Will Affect Care: None Current Living Situation: Family Current Living Situation Comment: Lives with daughter Feels Safe at Home: Yes Review of Systems Review of Systems: All systems reviewed & are unremarkable except as noted in HPI & below Gastrointestinal: + abdominal pain (Postprandial umbilical pain after eating, does not change with Maalox or Pepto-Bismol, ongoing for the last 2 months, starts 20 minutes after eating, occasional associated nausea and vomiting.) Physical Exam Constitutional: well developed and well nourished; no acute distress Eyes: + anicteric sclerae; normal pupil size ENMT: external ear and nose normal, oropharynx normal Neck: trachea midline, no thyromegaly Respiratory: normal respiratory effort, lungs clear to auscultation Cardiovascular: Rate/Rhythm: regular rate and regular rhythm Heart Sounds: no murmur Vessels: posterior tibial pulses present (Equal bilaterally), dorsalis pedis pulses present (Equal bilaterally) and radial pulses present (Equal bilaterally) Extremities: normal capillary refill (Right toes) and + calf tenderness (Right); no pedal edema Gastrointestinal (Abdomen): normal bowel sounds, soft, nontender, no hepatosplenomegaly Musculoskeletal: no cyanosis or clubbing, extremities motor strength 5/5 Skin: no rashes, warm and dry Neurologic: moves all extremities and awake; no focal motor deficits and not confused Psychiatric: A+Ox3, euthymic affect Genitourinary: no CVA tenderness Lymphatic: no cervical or axillary lymphadenopathy Results & Data Results & Data ([facility]) Vital Signs (Past 12 Hours) Vital Signs Temp Pulse Pulse Resp BP BP Pulse Ox 10/31/19 14:51 80 20 146/99 H 96 10/31/19 13:08 80 18 146/88 H 93 10/31/19 11:19 84 18 130/85 94 10/31/19 10:25 36.9 C 97 H 18 165/95 H 97 Diagnostic Findings US venous doppler LE RT IMPRESSION: 1. No evidence of right lower extremity DVT 2. Nonocclusive thrombus/embolism within the right popliteal artery RIGHT LOWER EXTREMITY ARTERIAL DOPPLER ULTRASOUND IMPRESSION: 1. 2.2 x 0.4 cm intraluminal abnormality within the right popliteal artery which could reflect an embolus or unstable thrombus. This may be at risk for distal embolization. 2. Otherwise, unremarkable right lower extremity arterial Doppler ultrasound. Normal bilateral ankle to brachial indices. Code Status & VTE Plan Code Status Full VTE Prophylaxis Plan VTE Prophylaxis will be ordered: Yes PG Care Time/CCT Total # of Minutes Spent Total Time Spent with Patient: Total time spent is greater than 50% in coordination of care (as documented) at patient's floor/unit and/or counseling patient: Coding Level of Care Code 29642 Initial Inpt Care Lvl 3 Diagnoses Popliteal artery embolus I74.3 Postprandial epigastric pain R10.13 Hypertension I10 Tobacco use disorder F17.200 Bipolar disorder F31.9 Anxiety F41.9 DVT prophylaxis Z29.9
[2019-10-31] MEDS ORDERED: OPTIRAY 320 125ml IV ONE (15:48)
[2019-10-31 15:51] LABS: Partial Thromboplastin Ratio 1.6; Partial Thromboplastin Time 44.3 Seconds (21.0-31.0); Prothrombin Time 10.9 Seconds (9.0-12.0)
[2019-10-31] MEDS: HEPARIN SODIUM/DEXTROSE 25,000 UNITS/500 ML BAG IV SCH (16:00)
--- NOTE | 2019-10-31 16:23 | CT Scan Report ---
CT ANGIOGRAPHY OF THE ABDOMEN AND PELVIS CLINICAL HISTORY: post prandial abd pain ?celiac/SMA stenosis COMPARISON STUDY: CT of the abdomen and pelvis January 21, 2019. TECHNIQUE: Helical axial images of the abdomen and pelvis were obtained during arterial phase followi ng intravenous injection of 120 cc Optiray 320 IV. Sagittal and coronal reconstructions were viewed a s well as maximal intensity projections on an independent 3-D workstation. Automated exposure control was utilized for the study. A dose lowering technique was utilized adhering to the principles of AL KLEVER. FINDINGS: Lung bases are unremarkable. No pneumatosis, free air or portal venous gas is present. The caliber of the abdominal aorta is normal. There is minimal atherosclerotic plaque. The major branch v essels are patent. No stenosis is noted. No intraluminal thrombus is identified. There is no dissecti on. There is no evidence for a bowel obstruction. The caliber and wall thickness of small and large b owel are normal. There is colonic diverticulosis without evidence for acute diverticulitis. The appen penelope is normal. There is slight nodularity of the liver surface. The gallbladder surgically absent. Th e spleen, adrenal glands and pancreas are unremarkable. Small bilateral renal calculi are noted. Ther e is no hydronephrosis. No definite ureteral calculi identified. No suspicious osseous lesions are no elijah. IMPRESSION: 1. No acute process within the abdomen or pelvis. 2. Unremarkable CTA of the abdomen and pelvis. Minimal atherosclerotic plaque. No stenosis or thrombu s identified. Patent vessels. ACT 112: Negative or not required by law. Electronically signed by: Zach Mancia M.D. 10/31/2019 4:22 PM
[2019-10-31] MEDS ORDERED: ALUMINUM/MAGNESIUM SUSP 30 ML UDC PO PRN (17:49)
[2019-10-31] MEDS ORDERED: ONDANSETRON INJ 2 MG/ML 2 ML VIAL IV PRN (17:49)
[2019-10-31] MEDS ORDERED: NICOTINE POLACRILEX 2 MG GUM MT PRN (17:49)
[2019-10-31] MEDS ORDERED: NON-FORMULARY MEDICATION (Ondansetron Hcl 4 MG) PO PRN (17:49)
[2019-10-31] MEDS ORDERED: POLYETHYLENE (MIRALAX) 17 GM PACK PO PRN (17:49)
[2019-10-31] MEDS ORDERED: ONDANSETRON 4 MG OD TAB PO PRN (17:55)
[2019-10-31] MEDS: NICOTINE 21 MG/24 HR TDSY TD SCH (19:02)
[2019-10-31] MEDS ORDERED: HydrALAZINE HCL 20 MG/ML VIAL IV PRN (19:31)
[2019-10-31 20:24] LABS: Alanine Aminotransferase 26 U/L (12-78); Albumin Level 3.5 gm/dl (3.4-5.0); Alkaline Phosphatase 166 U/L (45-117); Aspartate Aminotransferase 26 U/L (15-37); Bilirubin Direct < 0.1 mg/dl (0-0.2); Bilirubin,Total 0.3 mg/dl (0.2-1)
[2019-10-31] MEDS: GABAPENTIN 300 MG CAP PO SCH (20:48)
[2019-10-31] MEDS: PROPRANOLOL HCL 10 MG TAB PO SCH (20:48)
[2019-10-31] MEDS: QUETIAPINE FUMARATE 200 MG TAB PO SCH (20:48)
[2019-10-31] MEDS ORDERED: QUETIAPINE FUMARATE 200 MG TAB PO SCH (21:00)
[2019-10-31] MEDS ORDERED: PROPRANOLOL HCL 10 MG TAB PO SCH (21:00)
[2019-10-31] MEDS ORDERED: GABAPENTIN 300 MG CAP PO SCH (21:00)
[2019-10-31 23:03] LABS: Partial Thromboplastin Ratio 3.5
[2019-10-31 23:08] LABS: Partial Thromboplastin Time 96.6 Seconds (21.0-31.0)
[2019-11-01 06:19] LABS: Hematocrit (blood only) 41.8 % (37-47); Hemoglobin 14.1 g/dL (12.0-16.0); Mean Corpuscular Hemoglobin 29.6 pg (25-34); Mean Corpuscular Hgb Conc 33.7 g/dL (32-36); Mean Corpuscular Volume 87.6 fL (80-100); Platelet Count 209 K/uL (130-400); RDW Coefficient of Variation 12.9 % (11.5-14.5); RDW Standard Deviation 41.4 fL (36.4-46.3); Red Blood Count 4.77 M/uL (4.2-5.4); White Blood Count 4.91 K/uL (4.8-10.8)
[2019-11-01 06:40] LABS: Partial Thromboplastin Ratio 2.3
[2019-11-01 06:54] LABS: BUN Creatinine Ratio 16.2 (10-20); Calcium 9.4 mg/dl (8.5-10.1); Creatinine Clr Calc Pharmacy 64.5 ml/min; Est GFR (African American) 91.6; Partial Thromboplastin Time 64.1 Seconds (21.0-31.0); Potassium 3.9 mmol/L (3.5-5.1)
[2019-11-01] MEDS ORDERED: PERFLUTREN LIPID MICROSPHERE (DEFINITY) IV ONE (08:06)
[2019-11-01] MEDS: GABAPENTIN 300 MG CAP PO SCH ×3 (08:23→20:11)
[2019-11-01] MEDS: PROPRANOLOL HCL 10 MG TAB PO SCH ×2 (08:23→20:09)
[2019-11-01] MEDS: PARoxetine HCL 20 MG TAB PO SCH (08:23)
[2019-11-01] MEDS: PANTOprazole 40 MG TAB PO SCH (08:23)
[2019-11-01] MEDS: NICOTINE 21 MG/24 HR TDSY TD SCH (08:24)
[2019-11-01] MEDS: ACETAMINOPHEN 325 MG TAB PO PRN ×2 (08:36→20:09)
[2019-11-01] MEDS ORDERED: PANTOprazole 40 MG TAB PO SCH (09:00)
[2019-11-01] MEDS ORDERED: PAROXETINE HCL 40 MG PO SCH (09:00)
--- NOTE | 2019-11-01 12:13 | XCELERA ---
[id number]
[2019-11-01] MEDS: HEPARIN SODIUM/DEXTROSE 25,000 UNITS/500 ML BAG IV SCH (15:56)
[2019-11-01] MEDS: QUETIAPINE FUMARATE 200 MG TAB PO SCH (20:11)
--- NOTE | 2019-11-01 22:03 | Hospitalist Progress Note ---
Date of Service November 01, 2019 Assessment & Plan (1) Popliteal artery embolus: Acute popliteal artery thrombus versus embolus. Hypercoagulable state with smoking but no other personal or family history to suggest further work-up for hypercoagulable state required. Likely mechanically induced when she she crosses her legs. Pain has improved, and patient has good pulses and warm extremities. No urgency to transfer patient to tertiary center. Patient can wait until Sunday to see vascular surgery. TTE to assess for left ventricular thrombus. Continue IV heparin drip standard with bolus (2) Postprandial epigastric pain: Ongoing for 2 months. She came to the ER 1 week ago for this but did not stay due to a long wait time. Progressively getting worse. No effective Maalox or Pepto-Bismol and pain occurs 20 minutes after eating therefore not suggestive of gastritis. She is due to see her social work manager next week. In light of acute thrombus in her right popliteal artery will get CTA abdomen pelvis to assess for celiac versus SMA thrombus/stenosis. Since we are starting heparin drip should be done presently as may resolve with heparin and will possibly change duration and further investigations given her thrombus/embolus no popliteal artery was likely induced somewhat mechanically, whereas a celiac artery or SMA thrombus/embolus will suggest an overall hypercoagulable state versus emboli from the heart. CT angio abdomen pelvis with IV contrast Will place diet order when she has had this (3) Hypertension: Continue propranolol 10 mg p.o. twice daily (4) Tobacco use disorder: Discussed smoking cessation. Advised not to switch to vaping which was her previous plan. Continue nicotine replacement with 21 mg patch. (5) Bipolar disorder: Continue paroxetine 40 mg p.o. daily, gabapentin 300 mg p.o. 3 times daily, quetiapine 200 mg p.o. at bedtime (6) Anxiety: As above (7) DVT prophylaxis: Intravenous heparin drip as above Admission and Anticipated Discharge Date Admission Date: October 31, 2019 Subjective 64 yo female reports feeling well. She states her affected leg has significantly less pain today. Updated patient and had discussion with her about need for transferring her. Review of Systems Review of Systems: All systems reviewed & are unremarkable except as noted in HPI & below Physical Exam Physical Exam: Constitutional: well developed and well nourished; no acute distress Eyes: + anicteric sclerae; normal pupil size ENMT: external ear and nose normal, oropharynx normal Neck: trachea midline, no thyromegaly Respiratory: normal respiratory effort, lungs clear to auscultation Cardiovascular: Rate/Rhythm: regular rate and regular rhythm Heart Sounds: no murmur Vessels: posterior tibial pulses present (Equal bilaterally), dorsalis pedis pulses present (Equal bilaterally) and radial pulses present (Equal bilaterally) Extremities: normal capillary refill (Right toes) and + mild calf tenderness (Right); no pedal edema Gastrointestinal (Abdomen): normal bowel sounds, soft, nontender, no hepatosplenomegaly Musculoskeletal: no cyanosis or clubbing, extremities motor strength 5/5 Skin: no rashes, warm and dry Neurologic: moves all extremities and awake; no focal motor deficits and not confused Psychiatric: A+Ox3, euthymic affect Genitourinary: no CVA tenderness Lymphatic: no cervical or axillary lymphadenopathy Results & Data Results & Data ([facility]) Vital Signs (Past 12 Hours) Vital Signs Temp Pulse Pulse Resp BP Pulse Ox 11/01/19 18:57 36.6 C 92 H 16 164/78 H 96 11/01/19 15:01 36.8 C 110 H 20 136/86 93 11/01/19 14:53 71 11/01/19 12:00 37.0 C 70 16 132/82 97 PG Care Time/CCT Total # of Minutes Spent Total Time Spent with Patient: Total time spent is greater than 50% in coordination of care (as documented) at patient's floor/unit and/or counseling patient: Coding Level of Care Code 06934 Subseq Hosp Care Lvl 3 Diagnoses Popliteal artery embolus I74.3 Postprandial epigastric pain R10.13 Hypertension I10 Tobacco use disorder F17.200 Bipolar disorder F31.9 Anxiety F41.9 DVT prophylaxis Z29.9 Time Spent (min) 35
[2019-11-02 06:35] LABS: Partial Thromboplastin Ratio 2.5
[2019-11-02 06:44] LABS: Partial Thromboplastin Time 70.7 Seconds (21.0-31.0)
[2019-11-02] MEDS: PROPRANOLOL HCL 10 MG TAB PO SCH ×2 (08:05→20:27)
[2019-11-02] MEDS: PANTOprazole 40 MG TAB PO SCH (08:05)
[2019-11-02] MEDS: GABAPENTIN 300 MG CAP PO SCH ×3 (08:05→20:26)
[2019-11-02] MEDS: ACETAMINOPHEN 325 MG TAB PO PRN (08:06)
[2019-11-02] MEDS: PARoxetine HCL 20 MG TAB PO SCH (08:06)
[2019-11-02] MEDS: NICOTINE 21 MG/24 HR TDSY TD SCH (08:06)
[2019-11-02 13:16] LABS: Partial Thromboplastin Ratio 2.2
[2019-11-02 13:21] LABS: Partial Thromboplastin Time 62.6 Seconds (21.0-31.0)
[2019-11-02] MEDS: HEPARIN SODIUM/DEXTROSE 25,000 UNITS/500 ML BAG IV SCH (18:12)
[2019-11-02] MEDS: QUETIAPINE FUMARATE 200 MG TAB PO SCH (20:27)
--- NOTE | 2019-11-02 22:38 | Hospitalist Progress Note ---
Date of Service November 02, 2019 Assessment & Plan (1) Popliteal artery embolus: Acute popliteal artery thrombus versus embolus. Hypercoagulable state with smoking but no other personal or family history to suggest further work-up for hypercoagulable state required. Likely mechanically induced when she she crosses her legs. Pain has improved, and patient has good pulses and warm extremities. No urgency to transfer patient to tertiary center. Patient can wait until Sunday to see vascular surgery. TTE to assess for left ventricular thrombus. Continue IV heparin drip standard with bolus No change in plan (2) Postprandial epigastric pain: Ongoing for 2 months. She came to the ER 1 week ago for this but did not stay due to a long wait time. Progressively getting worse. No effective Maalox or Pepto-Bismol and pain occurs 20 minutes after eating therefore not suggestive of gastritis. She is due to see her building repair maintenance supervisor next week. In light of acute thrombus in her right popliteal artery will get CTA abdomen pelvis to assess for celiac versus SMA thrombus/stenosis. Since we are starting heparin drip should be done presently as may resolve with heparin and will possibly change duration and further investigations given her thrombus/embolus no popliteal artery was likely induced somewhat mechanically, whereas a celiac artery or SMA thrombus/embolus will suggest an overall hypercoagulable state versus emboli from the heart. CT angio abdomen pelvis with IV contrast Will place diet order when she has had this (3) Hypertension: Continue propranolol 10 mg p.o. twice daily (4) Tobacco use disorder: Discussed smoking cessation. Advised not to switch to vaping which was her previous plan. Continue nicotine replacement with 21 mg patch. (5) Bipolar disorder: Continue paroxetine 40 mg p.o. daily, gabapentin 300 mg p.o. 3 times daily, quetiapine 200 mg p.o. at bedtime (6) Anxiety: As above (7) DVT prophylaxis: Intravenous heparin drip as above Admission and Anticipated Discharge Date Admission Date: November 01, 2019 Subjective Patient resting comfortably. Patient has no new complaints at this time. Review of Systems Review of Systems: All systems reviewed & are unremarkable except as noted in HPI & below Physical Exam Physical Exam: Constitutional: well developed and well nourished; no acute distress ENMT: external ear and nose normal Neck: trachea midline Respiratory: normal respiratory effort Cardiovascular: Rate/Rhythm: regular rate and regular rhythm Skin: no rashes Results & Data Results & Data ([facility]) Vital Signs (Past 12 Hours) Vital Signs Temp Pulse Pulse Resp BP Pulse Ox 11/02/19 22:33 36.9 C 66 18 112/55 L 93 11/02/19 22:00 36.6 C 66 18 134/80 94 11/02/19 19:26 36.6 C 68 18 139/81 93 11/02/19 16:25 36.8 C 64 18 160/95 H 92 11/02/19 14:48 70 11/02/19 11:25 36.8 C 58 L 18 152/95 H 94 PG Care Time/CCT Total # of Minutes Spent Total Time Spent with Patient: Total time spent is greater than 50% in coordination of care (as documented) at patient's floor/unit and/or counseling patient: Coding Level of Care Code 11834 Subseq Hosp Care Lvl 1 Diagnoses Popliteal artery embolus I74.3 Postprandial epigastric pain R10.13 Hypertension I10 Tobacco use disorder F17.200 Bipolar disorder F31.9 Anxiety F41.9 DVT prophylaxis Z29.9
[2019-11-03 07:44] LABS: Partial Thromboplastin Ratio 2.3
[2019-11-03 08:05] LABS: Partial Thromboplastin Time 64.4 Seconds (21.0-31.0)
--- NOTE | 2019-11-03 08:11 | Electrocardiogram Report ---
Test Reason : Blood Pressure : / mmHG Vent. Rate : 073 BPM Atrial Rate : 073 BPM P-R Int : 208 ms QRS Dur : 082 ms QT Int : 406 ms P-R-T Axes : 017 058 046 degrees QTc Int : 447 ms Normal sinus rhythm Normal ECG When compared with ECG of 06-APR-2019 18:34, No significant change was found Confirmed by Tim Jain ([id number]) on 11/03/2019 8:11:20 AM Referred By: Candi Moreno Confirmed By:Tim Jain
[2019-11-03] MEDS: PROPRANOLOL HCL 10 MG TAB PO SCH (08:22)
[2019-11-03] MEDS: GABAPENTIN 300 MG CAP PO SCH (08:22)
[2019-11-03] MEDS: NICOTINE 21 MG/24 HR TDSY TD SCH (08:22)
[2019-11-03] MEDS: PARoxetine HCL 20 MG TAB PO SCH (08:23)
--- NOTE | 2019-11-03 08:50 | Consultation ---
Date of Consultation November 03, 2019 Assessment & Plan (1) Popliteal artery embolus: Pt also seen by Dr Ac today. Pt sx resolved. Pop art thrombus/embolus is small and nonocclusive. No indications for vascular surgical intervention at this time. Recommend pt be converted to oral AC and ok for d/c from vascular stand point. Will see in office in 3 months with follow up US to reeval the thrombus. Pt advised to seek medical care with any other concerning sx of pain or discoloration in her R foot. Pt agreeable to this plan. Patient was seen, examined, and chart reviewed. Agree with exam and treatment plan of the Vascular PA. Thank you very much for letting us participate in the care of this patient. History of Present Illness Reason for Consultation: RLE pop embolus Attending Physician: Dick Rojo History of Present Illness 64 yo f with hx of bipolar disorder, GERD, HTN, sinus bradycardia s/p pacemaker, dyslipidemia, PTSD, hiatal hernia, admitted with RLE cramping/pain 3 days ago and found to have RLE pop art nonocclusive thrombus/embolus, seen in consultation today for same. Pt states she was sitting at home as usual and noted sudden severe itching and lateral foot pain in RLE. States she then developed severe cramp in R calf that made it difficult to walk, so came to [facility] ED. Pt admits occasional rebekah horse cramps like this one. Denies MART, fever, chills, chest pain, SOb, abd pain, N/V, rest pain, claudication, nonhealing ulcers, toe discoloration, other complaints. Pt currently on heparin drip and states sx resolved. Arterial US demonstrates nonocclusive RLE pop art thrombus/embolus. Echo neg for cardiac source. Allergies Allergy/AdvReac Type Severity Reaction Status Date / Time morphine Allergy Severe SHORTNESS Verified 10/31/19 10:43 OF BREATH Bactrim Allergy Intermediate Itching Verified 10/02/17 09:54 Sulfa (Sulfonamide Allergy Intermediate ITCHY Verified 10/31/19 10:43 Antibiotics) sulfamethoxazole Allergy Intermediate Itching Verified 10/31/19 10:43 trimethoprim Allergy Intermediate Itching Verified 10/31/19 10:43 doxycycline Allergy Mild RED WELTS Verified 10/31/19 10:43 chlorpromazine Allergy Unknown . Verified 10/31/19 10:43 [From Thorazine] codeine AdvReac Mild VOMITING Verified 10/31/19 10:43 hydrocodone AdvReac Mild Vomiting Verified 10/31/19 10:43 Penicillins AdvReac Mild VOMITING Verified 10/31/19 10:43 Home Medications Home Medications Medication Instructions Recorded Confirmed Type gabapentin 300 mg capsule 300 mg PO TID #90 cap 12/03/18 10/31/19 History pantoprazole 40 mg PO QAM 01/21/19 10/31/19 History propranolol 10 mg tablet 10 mg PO BID #60 tab 07/01/19 10/31/19 Rx ondansetron HCl 4 mg tablet 4 mg PO QID PRN #60 tab 09/04/19 10/31/19 Rx paroxetine HCl 40 mg tablet 40 mg PO DAILY 09/17/19 10/31/19 History quetiapine [Seroquel] 200 mg PO HS 10/31/19 10/31/19 History apixaban [Eliquis] See Rx Instructions .ROUTE 11/03/19 Rx .COMPLEX #74 tab Patient History Medical History Anxiety Mayen's esophagus without dysplasia Benign essential hypertension Bipolar disorder Depression Dyslipidemia Gross hematuria Hiatal hernia Hiatal hernia Hydronephrosis of left kidney Hypertension Irregular heart rate prior to pacemaker Kidney stone hx of Lumbar radicular pain Mood disorder Nausea and vomiting after administration of anesthetic agent Nephrolithiasis Pacemaker @ [facility] 2006; replaced in 06/2016 [employer] follows with Dr. Orozco Palpitations Presence of cardiac pacemaker PTSD (post-traumatic stress disorder) Recurrent cold sores Renal colic Tobacco use disorder Surgical History History of bilateral tubal ligation History of cholecystectomy History of colonoscopy History of cystoscopy with stent placement History of dilatation and curettage History of esophagogastroduodenoscopy (EGD) History of lithotripsy x2 History of Gurwinder fundoplication 09/2018 at [facility] History of tooth extraction all teeth removed History of total hysterectomy with bilateral salpingo-oophorectomy (BSO) Family History Father Prostate cancer Other Myocardial infarction No family history of adverse response to anesthesia Denies family history of Ovarian cancer Breast cancer Colorectal cancer Social History Smoking Status: Current every day smoker Tobacco Type: Cigarettes Age Started Using Tobacco: 52; packs per day: 0.25; Cigarettes Per Day: 10; Second Hand Exposure: Yes (daughter smokes); Hx Alcohol Use: No Hx Substance Use: No Preferred Language: Greek Communication Ability: Effective Visual Impairment: No Limitations Hearing Ability: Normal Mobile Health Vehicle Operator Required: No Beliefs That Will Affect Care: None Current Living Situation: Family Current Living Situation Comment: Lives with daughter Feels Safe at Home: Yes Review of Systems Review of Systems: All systems reviewed & are unremarkable except as noted in HPI & below Physical Exam Constitutional: WD/WN, vitals as above healthy appearing, cooperative and comfortable; not in distress Eyes: PERRL, conjunctivae normal, anicteric sclerae ENMT: external ear and nose normal, oropharynx normal Ears: no hearing impairment Neck: normal visual inspection Respiratory: normal respiratory effort, lungs clear to auscultation Cardiovascular: RRR, no murmur, no edema Vessels: normal peripheral pulses, femoral pulses present, posterior tibial pulses present, dorsalis pedis pulses present, brachial pulses present and radial pulses present Extremities: normal capillary refill; no edema Gastrointestinal (Abdomen): normal bowel sounds, soft, nontender, no hepatosplenomegaly Musculoskeletal: no cyanosis or clubbing, extremities motor strength 5/5 Head/Neck/Chest: + head abnormal to inspection Skin: no rashes, warm and dry Neurologic: moves all extremities and awake; no focal motor deficits and not confused Psychiatric: A+Ox3, euthymic affect Results & Data ([facility]) Vital Signs (Past 12 Hours) Vital Signs Temp Pulse Pulse Resp BP Pulse Ox 11/03/19 07:26 67 11/03/19 07:18 36.6 C 65 18 144/83 H 93 11/03/19 04:08 36.8 C 66 18 153/89 H 93 11/02/19 22:39 70 11/02/19 22:33 36.9 C 66 18 112/55 L 93 11/02/19 22:00 36.6 C 66 18 134/80 94
[2019-11-03] MEDS ORDERED: MAGNESIUM OXIDE 400 MG TAB PO SCH (09:00)
[2019-11-03] MEDS ORDERED: APIXABAN 5 MG TABLET PO SCH (10:00)
[2019-11-03] MEDS: PANTOprazole 40 MG TAB PO SCH (10:46)
--- NOTE | 2019-11-06 13:48 | Discharge Summary ---
Date of Service November 03, 2019 Admission HPI Per Admitting Provider Josseline Sorto is a 64-year-old female who presents to the ER with acute onset right leg pain that started at 9 PM last night. This occurred while sitting down with her legs crossed. She routinely crosses her right leg on top of her left while sitting down. She started having itching sensation in her right lateral foot which turned into a pain suddenly became a lot worse quickly in the back of her calf and she has been unable to walk on this leg since. No radiation. Severity 12/19. She is trying to give up smoking but currently on half pack of cigarettes a day. In addition to this she uses a nicotine patch 21 mg. In the ER initial concern for DVT which was negative however incidentally noted thrombus in right peroneal artery which would explain her symptoms. Dr Arcos discussed with vascular surgery and advised inpatient admission with IV heparin drip with possible transition to DOAC tomorrow. Medicine consulted for admission. The patient denies any family history of autoimmune conditions, deep vein thrombosis or arterial thrombosis. She has a pacemaker placed for sinus node dysfunction but no known atrial fibrillation. Principal Diagnosis popliteal artery thrombosis Discharge Exam Constitutional: well developed and well nourished; no acute distress ENMT: external ear and nose normal Neck: trachea midline Respiratory: normal respiratory effort Cardiovascular: Rate/Rhythm: regular rate and regular rhythm Skin: no rashes Discharge Data Allergies Allergy/AdvReac Type Severity Reaction Status Date / Time morphine Allergy Severe SHORTNESS Verified 11/06/19 10:24 OF BREATH Bactrim Allergy Intermediate Itching Verified 10/02/17 09:54 Sulfa (Sulfonamide Allergy Intermediate ITCHY Verified 11/06/19 10:24 Antibiotics) sulfamethoxazole Allergy Intermediate Itching Verified 11/06/19 10:24 trimethoprim Allergy Intermediate Itching Verified 11/06/19 10:24 doxycycline Allergy Mild RED WELTS Verified 11/06/19 10:24 chlorpromazine Allergy Unknown . Verified 11/06/19 10:24 [From Thorazine] codeine AdvReac Mild VOMITING Verified 11/06/19 10:24 hydrocodone AdvReac Mild Vomiting Verified 11/06/19 10:24 Penicillins AdvReac Mild VOMITING Verified 11/06/19 10:24 Consultations 10/31/19 17:49 Consult Vascular Surgery Routine Ordered Studies 10/31/19 10:42 US venous doppler LE RT Stat 10/31/19 12:52 US arterial duplex LE RT Stat 10/31/19 15:31 CT angio abdomen pelvis w con Routine Hospital Course (1) Popliteal artery embolus: Acute popliteal artery thrombus versus embolus. Hypercoagulable state with smoking but no other personal or family history to suggest further work-up for hypercoagulable state required. Likely mechanically induced when she she crosses her legs. Pain has improved, and patient has good pulses and warm extremities. Appreciate input from vascular surgery: Pt also seen by Dr Ac today. Pt sx resolved. Pop art thrombus/embolus is small and nonocclusive. No indications for vascular surgical intervention at this time. Recommend pt be converted to oral AC and ok for d/c from vascular stand point. Will see in office in 3 months with follow up US to reeval the thrombus. Pt advised to seek medical care with any other concerning sx of pain or discoloration in her R foot. Pt agreeable to this plan. (2) Postprandial epigastric pain: Ongoing for 2 months. She came to the ER 1 week ago for this but did not stay due to a long wait time. Progressively getting worse. No effective Maalox or Pepto-Bismol and pain occurs 20 minutes after eating therefore not suggestive of gastritis. She is due to see her quality compliance manager next week. In light of acute thrombus in her right popliteal artery will get CTA abdomen pelvis to assess for celiac versus SMA thrombus/stenosis. improved on anticoagulation.state versus emboli from the heart. CT angio abdomen pelvis with IV contrast: which was negative. (3) Hypertension: Continue propranolol 10 mg p.o. twice daily (4) Tobacco use disorder: Discussed smoking cessation. Advised not to switch to vaping which was her previous plan. Continue nicotine replacement with 21 mg patch. (5) Bipolar disorder: Continue paroxetine 40 mg p.o. daily, gabapentin 300 mg p.o. 3 times daily, quetiapine 200 mg p.o. at bedtime (6) Anxiety: As above (7) DVT prophylaxis: discharge on eliquis Total Time Total Time Spent Total Time Spent (In Minutes): 32 Total Time Includes: Examination of the Patient, Discharge Planning and Medication Reconciliation Discharge Plan Discharge Items Patient Disposition: Home - Self-Care Reason For Visit: RIGHT POPLITEAL ARTERY THROMBUS/EMBOLUS Discharge Diagnosis: Right popliteal artery thrombus Activity: Resume your previous activity Non-emergency contact: Primary Care Provider Call non-emergency contact if: you have any medication questions Follow-up/Referrals: Candi Moreno CRNP [Primary Care Provider] - Nitesh Ac MD [Physician] - (Will schedule patient for three month follow up with a repeat ultrasound. She should call our office if she develops worsen ing pain in her leg) Diet: Regular Addtl Attending Provider Instructions: You were found to have a clot in the popliteal artery on the right leg. You will be on blood thinners. Please take Eliquis as prescribed. Pending Studies at Discharge: No Stand-Alone Forms: [facility] [employer], Smoking Cessation Medications and DC Order Prescriptions: New Eliquis 5 mg tablet See Rx Instructions .ROUTE .COMPLEX Qty: 74 RF: 0 Continued gabapentin 300 mg capsule 300 mg PO TID Qty: 90 RF: 0 propranolol 10 mg tablet 10 mg PO BID Qty: 60 RF: 2 ondansetron HCl [Zofran] 4 mg tablet 4 mg PO QID PRN (Reason: Nausea) Qty: 60 RF: 3 paroxetine HCl [Paxil] 40 mg tablet 40 mg PO DAILY RF: 0 quetiapine [Seroquel] 100 mg tablet 200 mg PO HS RF: 0 pantoprazole 40 mg tablet,delayed release (DR/EC) 40 mg PO QAM RF: 0 Discharge Orders: Discharge Order (Routine); Ordered 11/03/19 Ordered By: Dick Rojo Admission Data Admit Date/Time: 11/01/19 22:03 Attending Provider: Dick Rojo Admit Provider: Lino Suazo Primary Care Provider: Candi Moreno Other Providers: Nitesh Ac Other Interventions: Discharge Summary Assessment (RN) Last Done: 11/03/19 10:54 Coding Level of Care Code D/C Day Management >30 mins Diagnoses Popliteal artery embolus I74.3 Postprandial epigastric pain R10.13 Hypertension I10 Tobacco use disorder F17.200 Bipolar disorder F31.9 Anxiety F41.9 DVT prophylaxis Z29.9 Time Spent (min) 32
== END 2019-11-03 12:14 | disposition home or self-care (01) | DRG 301 ==
LOC: 2N 10:18 → ED 10:18 → SUATTDRO 15:13 → 2N 17:22